=== PATIENT | male | born 1965 | race African-American/Black ===

== ENCOUNTER 2022-07-04 16:16 | Emergency (ER) | payer OTHER, SELFPAY ==
--- NOTE | ~2022-07-04 | XR_ITS ---
EXAMINATION: XR wrist RT min 3V DATE: 07/04/2022 17:49 INDICATION: Posterior right wrist pain. TECHNIQUE: 4 views of right wrist were obtained. COMPARISON: None. FINDINGS: Bone alignment is normal. No fracture. There is mild osteoarthritis of triscaphe joint and third metacarpophalangeal joint. IMPRESSION: 1. Mild polyarticular osteoarthritis. Reviewed, dictated and finalized at location A. [employer]ER
[2022-07-04 16:27] VITALS: BP 149/103; PULSE 97; RESP 18; TEMP 37.2; O2SAT 99
--- NOTE | 2022-07-04 17:32 | ED.UPPEXIN ---
HPI - Extremity Injury (Upper) General Chief Complaint: Extremity Injury, Upper Stated Complaint: gout Time Seen by Provider: 07/04/22 17:04 Source: patient Mode of arrival: ambulatory Limitations: no limitations History of Present Illness HPI narrative: This is a 56 year old male that presents to the ER for right wrist pain ongoing over the last 3 days. Reports associated swelling. He has not been taking anything for pain. Reports history of gout and that Indomethacin usually helps him. He is out of his prescription at the moment. Denies fever. Related Data Allergies Allergy/AdvReac Type Severity Reaction Status Date / Time No Known Allergies Allergy Verified 12/22/17 14:13 Review of Systems Review of Systems: CONSTITUTIONAL: Denies fever SKIN: Denies rash MUSCULOSKELETAL: Reports joint pain, and myalgia. NEUROLOGIC: Denies numbness All systems reviewed & are unremarkable except as noted in HPI and below PMFSH Past Medical History Medical History (Updated 07/04/22 @ 19:37 by Elke Melendez PA-C) History of diabetes mellitus History of gout History of hyperlipidemia History of hypertension Social History Social History (Updated 07/04/22 @ 17:35 by Elke Melendez PA-C) Smoking status: Never smoker Exam Narrative: GENERAL: Well-appearing, well-nourished, and in no acute distress. HEAD: Normocephalic, atraumatic. EYES: EOMI. CHEST: Clear to auscultation. No respiratory distress. No wheezes rales or rhonchi HEART: Regular rate and rhythm. No murmur heard. Normal peripheral pulses. EXTREMITIES: Decreased active ROM in the right wrist due to pain. Mild edema about the right wrist dorsal surface. No overlying erythema. Normal DP pulse. Normal sensation SKIN: Warm, dry, no rash. NEURO: No focal deficits. Alert and oriented x3. PSYCH: Normal mood and affect Course Vital Signs Vital signs: Vital Signs Temperature 99 F 07/04/22 16:27 Pulse Rate 97 07/04/22 16:27 Respiratory Rate 18 07/04/22 16:27 Blood Pressure 149/103 H 07/04/22 16:27 Pulse Oximetry 99 07/04/22 16:27 Oxygen Delivery Room Air 07/04/22 16:27 Temperature 99 F 07/04/22 16:27 Pulse Rate 97 07/04/22 16:27 Respiratory Rate 18 07/04/22 16:27 Blood Pressure 149/103 H 07/04/22 16:27 Pulse Oximetry 99 07/04/22 16:27 Oxygen Delivery Room Air 07/04/22 16:27 MDM - Extremity Injury (Upper) MDM Narrative Medical decision making narrative: Patient presents to the emergency department for right wrist pain ongoing over the last 2 days. Reports longstanding history of gout and that this feels like a typical flare for him. He is afebrile and nontoxic-appearing. No recent injuries. He is neurovascularly intact. There is no erythema of the wrist. There is mild swelling noted. CBC with mild leukocytosis to 10.2. ESR is normal and CRP is 1.2. Uric acid is also normal. Wrist x-ray shows mild polyarticular osteoarthritis. Patient and family updated on work-up. Patient reports he usually gets the most relief with indomethacin and a steroid taper. Will be continued on indomethacin and started on a prednisone taper. He was instructed to have close follow-up with his primary provider. He was given warnings to return to the ER Lab Data Attestation: I reviewed the patient's lab results. 07/04/22 17:49 07/04/22 17:49 Labs: Lab Results 07/04/22 07/04/22 Range/Units 17:49 17:49 WBC 10.2 H (4.5-10.0) K/mm3 RBC 5.86 (4.6-6.20) M/mm3 Hgb 16.5 (14.0-18.0) g/dL Hct 50.0 (42.0-52.0) % MCV 85.3 (80-100) fl MCH 28.2 (26-34) pg MCHC 33.0 (32-36) g/dl RDW 13.2 (11.5-14.5) % Plt Count 154 (150-375) k/mm3 MPV 12.0 H (7.4-10.4) fl Immature Gran % (Auto) 0.3 (0-0.5) % Neut % (Auto) 75.4 H (45.5-73.1) % Lymph % (Auto) 18.1 L (18.3-44.2) % [place] % (Auto) 5.8 (2.6-8.5) % Eos % (Auto) 0.2 (0-4.4) % Baso % (Auto) 0.2 (0.2-1.2) % Lym
[2022-07-04] MEDS: INDOMETHACIN 25 MG CAPSULE 50 MG PO (17:45)
[2022-07-04 17:57] LABS: Basophils Percent Auto 0.2 % (0.2-1.2); Eosinophils Percent Auto 0.2 % (0-4.4); Hemoglobin 16.5 g/dL (14.0-18.0); Immature Granulocyte Absolute 0.03 K/mm3 (0.00-0.031); Immature Granulocyte Percent A 0.3 % (0-0.5); Lymphocytes Absolute Auto 1.85 K/mm3 (0.9-3.2); Lymphocytes Percent Auto 18.1 % (18.3-44.2); Mean Corpuscular Hemoglobin 28.2 pg (26-34); Mean Corpuscular Volume 85.3 fl (80-100); Monocytes Absolute Auto 0.6 K/mm3 (0.1-0.6); Monocytes Percent Auto 5.8 % (2.6-8.5); Neutrophils Absolute Auto 7.7 K/mm3 (1.3-6.7); Neutrophils Percent Auto 75.4 % (45.5-73.1); Platelet Count Result 154 k/mm3 (150-375); Red Blood Count 5.86 M/mm3 (4.6-6.20); Red Cell Distribution Width 13.2 % (11.5-14.5); White Blood Count 10.2 K/mm3 (4.5-10.0)
[2022-07-04 18:09] LABS: Anion Gap 12 mmol/L (8-16); Blood Urea Nitrogen 7 mg/dL (9-20); CRP 1.2 mg/dL (<1.0); Calcium 9.6 mg/dL (8.4-10.2); Carbon Dioxide 26 mmol/L (22-30); Chloride 100 mmol/L (98-107); Estimated CRCL calculation 117 ml/min; Estimated Glomerular Filt Rate > 60; Glucose 115 mg/dL (65-110); Potassium 3.7 mmol/L (3.4-5.0); Sodium 138 mmol/L (137-145); Uric Acid 5.6 mg/dL (3.5-8.5)
[2022-07-04 19:21] LABS: Erythrocyte Sedimentation Rate 10 mm/hr (0-20)
[2022-07-04 19:53] VITALS: BP 160/108; PULSE 84; RESP 16; O2SAT 99
== END 2022-07-04 19:53 | disposition home or self-care (01) ==
PROVIDERS: Emergency Provider Physician Assistant
DX: M10.9 Gout, unspecified (principal); E11.9 Type 2 diabetes mellitus without complications; E78.5 Hyperlipidemia, unspecified; I10 Essential (primary) hypertension; M19.031 Primary osteoarthritis, right wrist
CPT/HCPCS: 36415; 73110; 80048; 84550; 85025; 85652; 86140; 99283; A9270

== ENCOUNTER 2022-12-20 09:45 | Emergency (ER) | payer OTHER, SELFPAY ==
[2022-12-20 09:51] VITALS: BP 185/122; PULSE 94; RESP 16; TEMP 36.7; O2SAT 100
--- NOTE | 2022-12-20 10:23 | ED.GENADULT ---
HPI - General Adult General Chief complaint: Unspecified Stated complaint: R. hand swelling Time Seen by Provider: 12/20/22 09:57 History of Present Illness HPI narrative: Patient is a 57-year-old male with a history of gout here for evaluation of right hand and wrist pain and swelling. Patient states that he has been experiencing a gout flare for the past week. States that it started in his right foot and he has been using crutches. The right foot has improved but since using the crutches he has had right wrist pain. States pain is identical to previous gout flares. He has not attempted any medicine for his symptoms yet. Reports good relief from prednisone and indomethacin in the past. Related Data Allergies Allergy/AdvReac Type Severity Reaction Status Date / Time No Known Allergies Allergy Verified 12/22/17 14:13 Review of Systems Review of Systems: Gen.: Denies fevers or chills Eyes: Denies eye pain or visual change ENT: Denies congestion Respiratory: Denies shortness of breath or cough CV: Denies chest pain or palpitations GI: Denies abdominal pain nausea, emesis or diarrhea denies burning, urgency, frequency or hematuria Musculoskeletal: Reports joint pain Neuro: Denies numbness, tingling, weakness or focal weakness Skin: Denies rash Except as documented, all other systems reviewed and negative [facility] Past Medical History Medical History History of diabetes mellitus History of gout History of hyperlipidemia History of hypertension Social History Social History (Updated 07/04/22 @ 17:35 by Elke Melendez PA-C) Smoking status: Never smoker Exam Narrative: APPEARANCE: Uncomfortable appearing Head: Normocephalic and atraumatic. EYES: PERRLA/EOMI, conjunctivae clear NOSE: No nasal drainage EARS: External ear normal in appearance THROAT: Oropharynx is clear. Mucous membranes are moist. NECK: Supple. No adenopathy, no masses. RESPIRATORY: Airway patent, respirations nonlabored. Clear to auscultation bilaterally, no rales, rhonchi, wheezing. CARDIOVASCULAR: 2+ radial pulses bilaterally. Regular rate and rhythm without murmurs, rubs, or gallops. ABDOMINAL: Normoactive bowel sounds. Soft, nontender, nondistended. No rebound tenderness or guarding. MUSCULOSKELETAL: There is warmth and tenderness to palpation along the right distal ulna, nonpitting edema overlying the tenderness NEURO: Normal speech. No focal neurologic deficits. SKIN: Skin is warm and dry. No rashes. PSYCHIATRIC: Normal affect/mood.. Course Vital Signs Vital signs: Vital Signs Temperature 98.1 F 12/20/22 09:51 Pulse Rate 94 12/20/22 09:51 Respiratory Rate 16 12/20/22 09:51 Blood Pressure 185/122 H 12/20/22 09:51 Pulse Oximetry 100 12/20/22 09:51 Oxygen Delivery Room Air 12/20/22 09:51 Temperature 98.1 F 12/20/22 09:51 Pulse Rate 68 12/20/22 11:34 Respiratory Rate 16 12/20/22 09:51 Blood Pressure 164/110 H 12/20/22 11:34 Pulse Oximetry 97 12/20/22 11:34 Oxygen Delivery Room Air 12/20/22 09:51 Medical Decision Making MDM Narrative Medical decision making narrative: 57 year old male with a history of gout here for evaluation of right wrist pain for the past several days that he likens to a gout flare, appears to be consistent with such given history and physical exam. Feeling improved after toradol. He has no contraindications to steroids so will send home with predniosne and PMD f/u. Vital Signs Vital Signs: Vital Signs Temperature 98.1 F 12/20/22 09:51 Pulse Rate 94 12/20/22 09:51 Respiratory Rate 16 12/20/22 09:51 Blood Pressure 185/122 H 12/20/22 09:51 Pulse Oximetry 100 12/20/22 09:51 Oxygen Delivery Room Air 12/20/22 09:51 Temperature 98.1 F 12/20/22 09:51 Pulse Rate 68 12/20/22 11:34 Respiratory Rate 16 12/20/22 09:51 Blood Pressure 164/110 H 12/20/22 11:34 Pulse
[2022-12-20] MEDS: KETOROLAC 30 MG/ML VIAL (*BKC) IM (10:58)
[2022-12-20] MEDS: predniSONE 20 MG TABLET 40 MG PO (10:58)
[2022-12-20 11:34] VITALS: BP 164/110; PULSE 68; O2SAT 97
== END 2022-12-20 11:36 | disposition home or self-care (01) ==
PROVIDERS: Emergency Provider Physician Assistant
DX: M10.9 Gout, unspecified (principal); E11.9 Type 2 diabetes mellitus without complications; E78.5 Hyperlipidemia, unspecified; I10 Essential (primary) hypertension
CPT/HCPCS: 96372; 99283; J1885; J7512

== ENCOUNTER 2024-06-22 02:15 | Emergency (ER) | payer OTHER, SELFPAY ==
[2024-06-22] VITALS (16 sets, daily range): BP systolic 136–156; BP diastolic 93–110; PULSE 60–73; RESP 9–17; TEMP 36.6; O2SAT 95–99
--- NOTE | 2024-06-22 02:36 | ED_ITS ---
HPI - General Adult General Chief complaint: Allergic Reaction Stated complaint: lip swelling Time Seen by Provider: 06/22/24 02:18 History of Present Illness HPI narrative: Patient 58-year-old gentleman who presents emergency department with chief complaint of possible allergic reaction. The patient reports that started having swelling in his upper lip this evening. Patient is taking amlodipine/benazepril patient reports no specific inciting medication or food Related Data Allergies Allergy/AdvReac Type Severity Reaction Status Date / Time No Known Allergies Allergy Verified 09/17/23 15:04 Review of Systems Review of Systems: A 10 system review of systems was completed on the patient and is negative except for what is stated in the HPI. Nursing and ancillary documentation was reviewed. [facility] Past Medical History Medical History History of diabetes mellitus History of hyperlipidemia History of gout History of hypertension Family History Family History Mother Diabetes mellitus Father Acute myocardial infarction Social History Social History Smoking status: Never smoker Exam Narrative: GENERAL: Well-appearing, well-nourished, and in no acute distress. HEAD: Normocephalic, atraumatic. EYES: PERRLA and EOMI. ENT: Nares clear, no rhinorrhea or epistaxis. Mucous membranes moist. Angioedema of the upper lip no angioedema the tongue NECK: Supple. CHEST: Clear to auscultation. No respiratory distress. HEART: Regular rate and rhythm. No murmur heard. Normal peripheral pulses. ABDOMEN: Soft, nontender, nondistended, normal active bowel sounds. EXTREMITIES: Normal range of motion. No edema. SKIN: Warm, dry, no rash. NEURO: No focal deficits. Alert and oriented x3. PSYCH: Normal mood and affect. Course Vital Signs Vital signs: Vital Signs Pulse Rate 68 06/22/24 02:45 Respiratory Rate 9 L 06/22/24 02:45 Pulse Oximetry 99 06/22/24 02:45 Temperature 36.6 C 06/22/24 03:08 Pulse Rate 73 06/22/24 03:01 Respiratory Rate 16 06/22/24 03:01 Blood Pressure 147/95 H 06/22/24 03:01 Pulse Oximetry 97 06/22/24 03:01 Oxygen Delivery Room Air 06/22/24 03:08 Medical Decision Making [facility] Narrative Medical decision making narrative: Differential diagnosis includes allergic reaction, patient bring angioedema. The patient was given steroids Benadryl and Pepcid patient will be observed in the emergency department for 2-3 hours the patient will be discharged home on just amlodipine as this may be related to EDWARD inhibitor angioedema. Patient will also be started on a prednisone pulse. Vital Signs Vital Signs: Vital Signs Pulse Rate 68 06/22/24 02:45 Respiratory Rate 9 L 06/22/24 02:45 Pulse Oximetry 99 06/22/24 02:45 Temperature 36.6 C 06/22/24 03:08 Pulse Rate 73 06/22/24 03:01 Respiratory Rate 16 06/22/24 03:01 Blood Pressure 147/95 H 06/22/24 03:01 Pulse Oximetry 97 06/22/24 03:01 Oxygen Delivery Room Air 06/22/24 03:08 Discharge Plan Discharge Clinical Impression: Angioedema Patient Disposition: Home, Self-Care Condition: Stable Instructions: Antibiotic Form, Angioedema (ED) Additional Instructions: Please discontinue taking the amlodipine/benazepril. Your given a prescription for amlodipine without the been several please follow- up with your primary care provider as she may need further adjustment of your blood pressure medicines. The angioedema could be caused by the benazepril component of your blood pressure medicine or this could be a reaction to either a food or environmental allergen Patient Language: Stateless Prescriptions: New amlodipine 10 mg tablet 10 mg PO DAILY Qty: 30 0RF prednisone 20 mg tablet 40 mg PO DAILY 5 Days Qty: 10 0RF No Action indomethacin 50 mg capsule 50 mg PO TID 7 Days Qty: 21 0RF Rx Instructions: administer with food or milk prednisone 10 mg tablet 10 mg PO DAILY Qty: 45 0RF Rx Instructions: 5 tabs daily for 3 days, 4 tabs daily for 3 days, 3 tabs daily for 3 days, 2 tabs daily for 3 days, 1 tab daily for 3 days prednisone 10 mg tablet 10 mg PO DIRECTED Qty: 45 0RF Rx Instructions: 5 tabs daily for 3 days, 4 tabs daily for 3 days, 3 tabs daily for 3 days, 2 tabs daily for 3 days, 1 tab daily for 3 days Follow-up/Referrals: [place], [Primary Care Provider] -
[2024-06-22] MEDS: methylPREDNISolone SOD SUCC 125 MG VIAL IV PUSH (02:45)
[2024-06-22] MEDS: diphenhydrAMINE HCl INJ 50 MG/ML VIAL IV PUSH (02:45)
[2024-06-22] MEDS: FAMOTIDINE 20 MG/2 ML VIAL IV PUSH (02:45)
== END 2024-06-22 04:48 | disposition home or self-care (01) ==
PROVIDERS: Emergency Provider Emergency Medicine
DX: T78.3XXA Angioneurotic edema, initial encounter (principal); E78.5 Hyperlipidemia, unspecified; I10 Essential (primary) hypertension; M10.9 Gout, unspecified; E11.9 Type 2 diabetes mellitus without complications
CPT/HCPCS: 96374; 96375; 99284; J1200; J2919

== ENCOUNTER 2024-12-13 15:05 | Emergency (ER) | payer OTHER, SELFPAY ==
[2024-12-13] VITALS (9 sets, daily range): BP systolic 114–144; BP diastolic 78–93; PULSE 66–76; RESP 12–20; TEMP 36.4–36.6; O2SAT 96–99
--- NOTE | ~2024-12-13 | XR_ITS ---
EXAMINATION: XR chest 2V 12/13/2024 15:39 INDICATION: Trauma PROCEDURE: 2 view chest COMPARISON: 06/20/2011 FINDINGS: The lungs are clear. The cardiomediastinal silhouette is within normal limits. There are no pleural effusions. There is no pneumothorax suspected. IMPRESSION: 1: NO ACUTE CARDIOPULMONARY DISEASE. Reviewed, dictated and finalized at location B.
--- NOTE | 2024-12-13 15:09 | ECG_ITS ---
Test Date: 2024-12-13 15:10:53 Measurements Intervals [place] Rate: 76 P: 61 TN: 169 QRS: -12 QRSD: 99 T: 3 QT: 393 QTc: 443 Interpretive Statements SINUS RHYTHM POSSIBLE LEFT ATRIAL ENLARGEMENT VOLTAGE CRITERIA FOR LVH CONSIDER INFERIOR INFARCT, AGE INDETERMINATE ABNORMAL ECG No previous ECG available for comparison Electronically Signed On 12-13-2024 16:12:52 CDT by Gerald Pope D.O.
--- NOTE | 2024-12-13 15:19 | ED.CHESTPAIN ---
HPI - Chest Pain General Chief Complaint: Chest Pain Stated Complaint: chest pain from trauma Time Seen by Provider: 12/13/24 15:11 History of Present Illness HPI narrative: Pt was cutting peice of plywood with table saw and it bound up a flew up and hit him in the right chest. Pt complains of right sided CP at site of injury. Pt says it hurts in that spot when he takes a deep breath. Related Data Allergies Allergy/AdvReac Type Severity Reaction Status Date / Time No Known Allergies Allergy Verified 09/17/23 15:04 Review of Systems Review of Systems: All systems reviewed & are unremarkable except as noted in HPI and below PMFSH Past Medical History Medical History History of diabetes mellitus History of hyperlipidemia History of gout History of hypertension Family History Family History Mother Diabetes mellitus Father Acute myocardial infarction Social History Social History Smoking status: Never smoker Exam Const: General: healthy appearing and no acute distress Nutritional Appearance: well nourished Orientation/consciousness: patient oriented x3 Limitations: no limitations Chest: Other: abrasion right anterio rlower chest with tenderness to palpation but no crepitance noted Resp: Effort & Inspection: normal respiratory effort Auscultation: clear to auscultation bilaterally Cardio: Rate: regular rate Rhythm: regular rhythm GI: GI Palp: Yes Soft to palpation Auscultation: normal bowel sounds Skin: General skin exam: normal color Wounds: wounds noted (abrasion to right forearm) Neuro: General: patient oriented x3, moves all extremities, no focal motor deficits and CN's II-XI intact bilaterally Speech: normal speech Extrem: General: normal to inspection and no clubbing, cyanosis or edema Psych: Mental Status: mental status grossly normal Affect: normal affect Attitude: cooperative Course Vital Signs Vital signs: Vital Signs Temperature 97.8 F 12/13/24 15:09 Pulse Rate 76 12/13/24 15:09 Respiratory Rate 16 12/13/24 15:09 Blood Pressure 144/93 H 12/13/24 15:09 Pulse Oximetry 99 12/13/24 15:09 Oxygen Delivery Room Air 12/13/24 15:09 Temperature 97.6 F 12/13/24 16:16 Pulse Rate 69 12/13/24 16:31 Respiratory Rate 17 12/13/24 16:31 Blood Pressure 115/80 12/13/24 16:31 Pulse Oximetry 97 12/13/24 16:31 Oxygen Delivery Room Air 12/13/24 15:09 MDM - Chest Pain MDM Narrative Medical decision making narrative: pt struck in chest by piece of plywood flying of table saw. will get cxr to rule out fx or pnuemothorax. ekg normal and not likely cardiac. will give morphine for pain. labs and cxr unremarkable. Pt feels better. home on [employer] Lab Data 12/13/24 15:19 12/13/24 15:43 Labs: Lab Results 12/13/24 12/13/24 Range/Units 15:19 15:43 WBC 5.4 (4.5-10.0) K/mm3 RBC 5.33 (4.6-6.20) M/mm3 Hgb 15.5 (14.0-18.0) g/dL Hct 47.5 (42.0-52.0) % MCV 89.1 (80-100) fl MCH 29.1 (26-34) pg MCHC 32.6 (32-36) g/dl RDW 13.0 (11.5-14.5) % Plt Count 140 L (150-375) k/mm3 MPV 11.9 H (7.4-10.4) fl Immature Gran % (Auto) 0.4 (0-0.5) % Neut % (Auto) 64.2 (45.5-73.1) % Lymph % (Auto) 28.7 (18.3-44.2) % [place] % (Auto) 5.2 (2.6-8.5) % Eos % (Auto) 1.1 (0-4.4) % Baso % (Auto) 0.4 (0.2-1.2) % Lymph # (Auto) 1.54 (0.9-3.2) K/mm3 [place] # (Auto) 0.3 (0.1-0.6) K/mm3 Eos # (Auto) 0.1 (0-0.3) K/mm3 Baso # (Auto) 0.0 (0.0-0.1) K/mm3 Abs Immat Gran (auto) 0.02 (0.00-0.031) K/mm3 Absolute Neuts (auto) 3.5 (1.3-6.7) K/mm3 Absolute Nucleated RBC 0.000 (0.0-0.012) K/mm3 Nucleated RBC % 0.0 (0.0-0.2) % Sodium 139 (137-145) mmol/L Potassium 3.5 (3.4-5.0) mmol/L Chloride 108 H (98-107) mmol/L Carbon Dioxide 21 L (22-30) mmol/L Anion Gap 10 (4-12) mmol/L BUN 16 (9-20) mg/dL Creatinine 0.91 (0.7-1.3) mg/dL Estim Creat Clear Calc 95 ml/min Estimated GFR > 60 (59 - ) Glucose 99 (65-110) mg/dL Calcium 9.8 (8.4-10.2) mg/dL Total Bilirubin 0.4 (0.2-1.3) mg/dL AST 52 (17-59) U/L ALT 57 H (6-50) U/L Alkaline Phosphatase 35 L (38-126) U/L Total Protein 7.9 (6.3-8.2) g/dL Albumin 4.6 (3.5-5.1) g/dL Discharge Plan Discharge Clinical Impression: Chest wall contusion Patient Disposition: Home Condition: Improved Instructions: Antibiotic Form, Chest Wall Pain (ED) Patient Language: Palauan Prescriptions: New hydrocodone-acetaminophen 5-325 mg tablet 1 tablet PO Q6H PRN (Reason: pain) Qty: 14 0RF No Action amlodipine 10 mg tablet 10 mg PO DAILY Qty: 30 0RF prednisone 20 mg tablet 40 mg PO DAILY 5 Days Qty: 10 0RF indomethacin 50 mg capsule 50 mg PO TID 7 Days Qty: 21 0RF Rx Instructions: administer with food or milk prednisone 10 mg tablet 10 mg PO DAILY Qty: 45 0RF Rx Instructions: 5 tabs daily for 3 days, 4 tabs daily for 3 days, 3 tabs daily for 3 days, 2 tabs daily for 3 days, 1 tab daily for 3 days prednisone 10 mg tablet 10 mg PO DIRECTED Qty: 45 0RF Rx Instructions: 5 tabs daily for 3 days, 4 tabs daily for 3 days, 3 tabs daily for 3 days, 2 tabs daily for 3 days, 1 tab daily for 3 days Follow-up/Referrals: [place], [Primary Care Provider] - Quality HEART score for chest pain patients History: slightly suspicious ECG: normal Age: > 45 and < 65 years Risk factors: no risk factors known Troponin: < or = to 1x normal limit Heart score: 1
[2024-12-13 15:27] LABS: Basophils Percent Auto 0.4 % (0.2-1.2); Eosinophils Absolute Auto 0.1 K/mm3 (0-0.3); Eosinophils Percent Auto 1.1 % (0-4.4); Hematocrit 47.5 % (42.0-52.0); Hemoglobin 15.5 g/dL (14.0-18.0); Immature Granulocyte Absolute 0.02 K/mm3 (0.00-0.031); Immature Granulocyte Percent A 0.4 % (0-0.5); Lymphocytes Absolute Auto 1.54 K/mm3 (0.9-3.2); Lymphocytes Percent Auto 28.7 % (18.3-44.2); Mean Corpuscular HGB Conc 32.6 g/dl (32-36); Mean Corpuscular Hemoglobin 29.1 pg (26-34); Mean Corpuscular Volume 89.1 fl (80-100); Mean Platelet Volume 11.9 fl (7.4-10.4); Monocytes Absolute Auto 0.3 K/mm3 (0.1-0.6); Monocytes Percent Auto 5.2 % (2.6-8.5); Neutrophils Absolute Auto 3.5 K/mm3 (1.3-6.7); Neutrophils Percent Auto 64.2 % (45.5-73.1); Platelet Count Result 140 k/mm3 (150-375); Red Blood Count 5.33 M/mm3 (4.6-6.20); White Blood Count 5.4 K/mm3 (4.5-10.0)
[2024-12-13] MEDS: ONDANSETRON INJ 4 MG/2 ML VIAL IV PUSH (15:29)
[2024-12-13] MEDS: MORPHINE SULFATE (*CRX) 4 MG/ML INJ IV PUSH (15:29)
[2024-12-13 16:03] LABS: Alanine Aminotransferase 57 U/L (6-50); Albumin Level 4.6 g/dL (3.5-5.1); Alkaline Phosphatase 35 U/L (38-126); Anion Gap 10 mmol/L (4-12); Aspartate Amino Transferase 52 U/L (17-59); Bilirubin,Total 0.4 mg/dL (0.2-1.3); Blood Urea Nitrogen 16 mg/dL (9-20); Calcium 9.8 mg/dL (8.4-10.2); Carbon Dioxide 21 mmol/L (22-30); Chloride 108 mmol/L (98-107); Estimated CRCL calculation 95 ml/min; Estimated Glomerular Filt Rate > 60; Glucose 99 mg/dL (65-110); Potassium 3.5 mmol/L (3.4-5.0); Sodium 139 mmol/L (137-145); Total Protein 7.9 g/dL (6.3-8.2)
--- OUTSIDE RECORDS SUMMARY | 2024-12-13 16:30 | XMS_ITS | Encounter Summary ---
Author Name [facility] [place] Organization [facility] [place] Address [address] [place] [address] Care Team Providers Care Rehab Consultant Name Role Phone MIRANDA GONZALES Primary Care Provider Nancy hurtado Selected Encounter This section includes the information on record at [place] for the Encounter. Date/Time Encounter Type Encounter Description Reason Provider Source November 07, 2024 09:00 AM OFFICE O/P EST MOD 30 MIN RHEUMATOLOGY/ARTHR ITIS ICD-10-CM [id number] Chronic gout, unspecified, without tophus (tophi) JOANNA SANTIAGO Encounter Template Text not used by [place] Assessments - Encounter Diagnoses This section includes the primary and secondary diagnoses documented for the Encounter. Date/Time Primary/Secondary Diagnosis Diagnosis Name Provider Source November 07, 2024 09:54 AM PRIMARY Chronic gout, unspecified, without tophus (tophi) [facility] November 07, 2024 09:54 AM SECONDARY Chronic pain syndrome [facility] November 07, 2024 09:54 AM SECONDARY Vertebrogenic low back pain [facility] Plan of Treatment: Future Appointments (+ 6 months) and Future Tests (+/- 45 days) The Plan of Treatment section includes future care activities for the patient from all [place] [facility]. This section includes future appointments and future orders which are active, pending or scheduled. Future Appointments This section includes appointments that were scheduled to occur 6 months from the date of the Encounter, up to a maximum of 20 appointments. The data comes from all [place] treatment facilities. Appointment Date/Time Appointment Type Appointme nt Facility Name Jan 26, 2025 02:00 PM AMBULATORY - MEDICINE [facility] Feb 27, 2025 09:30 AM AMBULATORY - MEDICINE [facility] Vital Signs: All taken on the encounter date This section contains inpatient and outpatient Vital Signs collected on the date of the Encounter. Date/Time Temperature Pulse Blood Pressure Respiratory Rate SP02 Pain Height Weight Body Mass Index Source November 07, 2024 09:16 AM 160/89 [facility] November 07, 2024 09:16 AM 98 158/91 86 96 7 244.3 32 [facility] Social History: Smoking Status (Most current) and Tobacco Use (All prior to encounter date) This section includes the most current, and the historical, smoking and tobacco- related health factors from the [place] facility where the Encounter took place. Current Smoking Status This section includes the most current smoking, or tobacco-related health factor, from the [place] facility where the Encounter took place. Date/Time Current Smoking Status Comment Kendall loredo Oct 01, 2022 02:00 PM LIFETIME NON-SMOKER [facility] Encounter Notes: All associated encounter notes This section contains the clinical notes associated to the Encounter. Date/Time Encounter Note(s) Provider Source November 07, 2024 09:44 AM RHEUMATOLOGY OUTPA TIENT NOTE: LOCAL TITLE: RHEUMATOLOGY OUTPATIENT FOLLOW UP STL STANDARD TITLE: RHEUMATOLOGY OUTPATIENT NOTE DATE OF NOTE: NOVEMBER 07, 2024@09:44 ENTRY DATE: NOVEMBER 07, 2024@09:45:05 AUTHOR: JS DIAS EXP COSIGNER: JOANNA SANTIAGO URGENCY: STATUS: COMPLETED RHEUMATOLOGY OUTPATIENT FOLLOW UP STL Has ADDENDA Rheumatology Established HPI:Rafi Mane is a 59 years old M with a h/o HTN,HLD,DM,CHRISTA on CPAP,gout, who is here for a f/u. Interval history: Today, he tells me that his health is doing much better but his bl sciatica symptoms are getting somewhat worse. His gout is better controlled but mentions he had two flares in the last 5 months. This was controlled with few days of Colchicine. He wants to take better control of his life and pain and wishes his back was better. ROS: No fever, chills. No shortness of breath or cough. No abdominal pain. No new rash. Disease history: 1988: ?Gout diagnosis, pain in the right first toe with a elevated uric acid, they aspirated and he was told that he has gout??. He has tried indomethacin and colchicine in the past. He did try allopurinol in the past but had a flare up on it and didn't take anything like Colchicine for a few months along with it. 01/25: First visit with us in the clinic. reported flares 3-4 times per month: ankles: b/l, sometimes toes, wrist, hands, fingers, elbows, shoulders, lower back, and the neck. Uric acid 08/28: 6.7. 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 Medication history: Allopurinol resumed on 08/2023 along with colchicine daily MEDICATIONS: AMLODIPINE 5/BENAZEPRIL 20MG CAP TAKE 2 CAPSULES BY MOUTH ACTIVE ONCE A DAY CAMPHOR 0.5/MENTHOL 0.5% LOTION APPLY LIBERALLY TO ACTIVE AFFECTED AREA(S) THREE TIMES A DAY NEEDED FOR ITCHING - (EXTERNAL USE ONLY) CAN KEEP IN FRIDGE FOR ADDITIONAL BENEFIT CETIRIZINE HCL 10MG TAB TAKE ONE TABLET BY MOUTH TWICE A ACTIVE DAY FOR ALLERGY SYMPTOMS COLCHICINE 0.6MG TAB TAKE ONE TABLET BY MOUTH ONCE A DAY ACTIVE STOP MED AND CONTACT PROVIDER AT FIRST SIGN OF NAUSEA, VOMITING, OR DIARRHEA DICLOFENAC NA 1% TOP GEL APPLY 4 GM TO AFFECTED AREA(S) ACTIVE FOUR TIMES A DAY NEEDED DO NOT EXCEED MORE THAN 16 GRAMS DAILY TO ANY LOWER EXTREMITY JOINT. NOT MORE THAN 8 GRAMS DAILY TO ANY UPPER EXTREMITY JOINT. MAX 32GM/DAY OVER ALL JOINTS. (MEASURE DOSE WITH RULER ATTACHED INSIDE BOX) HYDROXYZINE HCL 25MG TAB TAKE ONE TABLET BY MOUTH AT ACTIVE BEDTIME NEEDED FOR PRURITIS *MAY CAUSE DROWSINESS* OLOPATADINE HCL 0.7% OPH SOLN INSTILL 1 DROP IN BOTH EYES ACTIVE ONCE A DAY FOR ALLERGIES PETROLATUM (WHITE) OINT APPLY LIBERALLY TO AFFECTED ACTIVE AREA(S) THREE TIMES A DAY TRIAMCINOLONE ACETONIDE 0.1% OINT APPLY LIGHTLY TO ACTIVE AFFECTED AREA(S) TWICE DAILY NEEDED (EXTERNAL USE ONLY) MUCH NEEDED FOR SEVERE ITCHING/RASH Non-VA ATORVASTATIN CALCIUM 80MG TAB 40MG BY MOUTH EVERY ACTIVE EVENING Non-VA METFORMIN HCL 500MG 24HR SA TAB 500MG BY MOUTH ONCE ACTIVE A DAY Non-VA METOPROLOL SUCCINATE 50MG SA TAB 25MG BY MOUTH ONCE ACTIVE A DAY Labs: 04/2024: Stable, ALT 51, Uric acid 8.5 PHYSICAL EXAM: VITALS: Stable Gen: Alert, oriented, in no acute distress No pallor, icterus No facial rash Chest: Clear to auscultation Abdomen: obese, soft, nontender Extremities: no edema MSK: No joint synovitis noted in b/l hands, Decreased ROM in b/l shoulder, no tenderness to palpation Bunion+ b/l 1st toe Decreased mobility of lumbar spine, kyphosis+, muscle spasm bl lumbar area No spine TTP SLRT + bl, Left>right No elevated temperature or tenderness on joint palpation No muscle tenderness appreciated Power 5/5 both upper and lower extremity ASSESSEMENT AND PLAN: Mr. Mane is a 59 year old gentleman with a h/o gout, DM, HTN, HLD, CHRISTA, here for fu of multiple issues. #Chronic pain syndrome #Lumbar spondylosis: Lumbago with b/l sciatica #Post-traumatic osteoarthritis ----- -Will send muscle relaxant Cyclobenzaprine 5mg for 7 days and lidocaine patch PRN (on for 12 hours and off for 12 hours). -Will consult PT for lower back. Trial for atleast 3months. If not improving can consider pain management evaluation for epidural steroid injection and/or MRI. #Gout: nontophaceous Patient gives history of involvement of right ankle, right first toe, and right wrist? atleast more than 3 times a year.It lasts for about a week and self resolves. This has never been crystal proven. I started allopurinol with daily colchicine for 3 months on 08/2023. We discussed the importance of allopurinol for maintenance and colchicine for as needed prevention. -He is on a steady dose since 04/2024, will increase to 200mg daily. He is not taking daily Colchicine and only uses it PRN. This is fine but I advised daily use for 3 months to prevent mobilization flare. -Labs at next visit in 3 months including uric acid. FOLLOW-UP: 3 months, earlier as needed. Case discussed with Dr. Santiago. /francine/ JS DIAS MD RHEUMATOLOGY FELLOW Signed: 11/07/2024 09:54 /francine/ Joanna Santiago MD PhD Staff Physician, Rheumatology Cosigned: 11/07/2024 10:19 11/07/2024 ADDENDUM STATUS: COMPLETED Case discussed with the fellow, chart reviewed including labs and radiological findings. I discussed the case and reviewed the note created by the fellow, and agree in general with the data, synthesis, and plan as outlined in the fellow's note. /francine/ Joanna Santiago MD PhD Staff Physician, Rheumatology Signed: 11/07/2024 10:[address] [facility]
--- OUTSIDE RECORDS SUMMARY | 2024-12-13 16:31 | XMS_ITS | Encounter Summary ---
Author Name [facility] [place] [place] Organization [facility] [place] Address [address] [place] [address] Care Team Providers Care Insulation Worker Furnace Installer Name Role Phone MIRANDA GONZALES Primary Care Provider Nancy hurtado Selected Encounter This section includes the information on record at [place] for the Encounter. Date/Time Encounter Type Encounter Description Reason Provider Source Feb 08, 2024 03:00 PM OFFICE O/P EST LOW 20 MIN OPTOMETRY ICD-10-CM G43.B0 Ophthalmoplegic migraine, not intractable CHIVETTA,LAQUITA RODRIGUEZ IHHarriet Encounter Template Text not used by [place] Assessments - Encounter Diagnoses This section includes the primary and secondary diagnoses documented for the Encounter. Date/Time Primary/Secondary Diagnosis Diagnosis Name Provider Source Feb 09, 2024 08:33 AM PRIMARY Ophthalmoplegic migraine, not intractable CHIVETTA,LAQUITA RODRIGUEZ [facility] Feb 09, 2024 08:33 AM SECONDARY Dry eye syndrome of bilateral lacrimal glands LAQUITA AKINS [facility] Feb 09, 2024 08:33 AM SECONDARY Glare sensitivity LAQUITA AKINS [facility] Feb 09, 2024 08:33 AM SECONDARY Open angle with borderline findings, low risk, bilateral REBECCAVELAQUITA CRUZ [facility] Plan of Treatment: Future Appointments (+ 6 months) and Future Tests (+/- 45 days) The Plan of Treatment section includes future care activities for the patient [facility] [place] [facility] This section includes future appointments and future orders which are active, pending or scheduled. Future Appointments This section includes appointments that were scheduled to occur 6 months from the date of the Encounter, up to a maximum of 20 appointments. The data comes from all [facility]. Appointment Date/Time Appointment Type Appointme nt Facility Name Mar 03, 2024 04:00 PM AMBULATORY - PSYCHIATRY [facility] Mar 17, 2024 04:00 PM AMBULATORY - PSYCHIATRY [facility] Apr 11, 2024 09:30 AM AMBULATORY - MEDICINE [facility] Aug 01, 2024 02:00 PM AMBULATORY - MEDICINE [facility] Aug 08, 2024 11:00 AM AMBULATORY - PSYCHIATRY [facility] Aug 08, 2024 03:00 PM AMBULATORY - SURGERY [facility] Social History: Smoking Status (Most current) and Tobacco Use (All prior to encounter date) This section includes the most current, and the historical, smoking and tobacco- related health factors from the [place] facility where the Encounter took place. Current Smoking Status This section includes the most current smoking, or tobacco-related health factor, from the [place] facility where the Encounter took place. Date/Time Current Smoking Status Comment Kendall loredo Feb 01, 2024 03:00 PM [place]-TOBACCO NEVER USED [facility] Tobacco Use History This section includes a history of the smoking, or tobacco-related health factors, that were collected on or before the date of the Encounter. The data comes from the [place] facility where the Encounter took place. Date/Time Smoking Status/Tobacco Use Comment F acarcadio Jan 05, 2023 02:30 PM [place]-TOBACCO NEVER USED [facility] Encounter Notes: All associated encounter notes This section contains the clinical notes associated to the Encounter. Date/Time Encounter Note(s) Provider Source Feb 08, 2024 03:10 PM OPTOMETRY NOTE: LOCAL TITLE: OPTOMETRY NOTE STANDARD TITLE: OPTOMETRY NOTE DATE OF NOTE: FEB 08, 2024@15:10 ENTRY DATE: FEB 08, 2024@15:10:06 AUTHOR: LAQUITA AKINS EXP COSIGNER: URGENCY: STATUS: COMPLETED Last seen 08/17/23 - CEE 09/10/23 - LV 12/31/23 - VIST Reason for visit: f/u for migraines c aura CC: 1. Pt reports symptoms have improved likes the new glasses, though feels vision functional even without them likes sha tinted glasses when getting mirgraine trigger likes improved lighting/mag at home notes the migraines have decreased from qday to about 1x/week saw PCP but does not want meds/neuro referral at this time prior VF sc neurologic defects Ocular meds: refresh PRN Ocular ROS: 1. Suspected Ocular migraines vs Migraines c aura 2. Moderate Cupping OU 3. Hx of Central Serous Chorioretinopathy OD 4. Diabetes without retinopathy 5. LUIS ALBERTO OU 6. Cataracts OU 7. Refractive error/Presbyopia Family OcHX: (-) blindness (-) glaucoma (-) AMD (-) RD Cardiovascular ROS: no change from problem & medication lists CPRS Problem list, medications and allergies reviewed: CPRS Serology for Diabetes GLUCOSE 104 H mg/dL 04/21/2023 10:32 HGA1C 7.1 H % 08/08/2022 12:36 Cardiovascular BP: 138/78 (02/01/2024 15:24) Pulse: 72 (02/01/2024 15:09) Neuro: Orientation: Normal Psych: Mood/Affect: Normal Depression/suicide ideation: NO VISUAL ACUITY Without correction Distance Visual Acuity OD 20/20 OS 20/20-2 Pupils PERRL OU (-)APD Confrontation: FTFC OU Extra-Ocular Muscles Full OU (-)pain (-)diplopia CT sc dist: ortho Externals/adnexa: Unremarkable OU Refraction: 08/17/23 OD plano-[id number] 20/25+2 OS plano-[id number] 20/25+2 Add: + 2.00 DVO - transitions NVO SLIT LAMP EXAMINATION Lids/Lashes/Lacrimal No blepharitis, 1+ MGD OU Conjunctiva/Sclera White/quiet OU Cornea Clear OU Ant Chamber Deep and quiet OU Iris Normal, (-)NVI OU Lens tr-1 NS cataract OU Intraocular Pressures (Goldmann) 1 gtt fluress Date OD OS Time 08/17/23 21 20 1103 *blepharospasm 02/08/24 18 19 1514 RETINAL EVALUATION unDilated retinal exam Optic Nerve OD: 0.60 CDR Flat, pink, distinct (-)NVD OS: 0.65 CDR Flat, pink, distinct (-)NVD (+) large ONH size OU Vessels: 2/3 OU Macula: OD: Flat, intact (-)CSME, few drusen OS: Flat, intact (-)CSME, tr drusen Last DFE 08/2023 Assessment/Plan 02/09/24 1. Ocular migraines vs Migraines c aura - migraine with aura on prior DOD records - pt reports symptoms have decreased in frequency - occurs about once a week (vs qday prior) - HVF poor reliability OU but no neurological defect noted 09/2022 or 11/2022 - pt following with PCP for elevated BP, DM - Per chart review, no current treatment for migraines and pt reports did not bring up to PCP at [facility] 02/01/24 because he does not want to take more medications - Discussed possiblity of MRI brain imaging given pts symptoms, pt wishes to wait at this time (does not want to 'use up resources other may need'). Given no prior neurologic defects on VF, acceptable at this time. - Pt reports sha tinted specs, devices for at home have helped symptoms through clinic. - RTC 6 mo for CEE or sooner if symptoms worsen in severity/frequency/duration 2. Moderate Cupping OU - IOP remains high normotensive OU - today sc tx - large ONH size OU - baseline OCT obtained (08/28) normal RNFL thickness OU, normal GCC OU - fundus photos obtained 09/2022 - F 2022: poor reliability c cloverleaf defect - does not c/w OCT - ed. pt on findings - treatment not indicated at this time - monitor with IOP/CDR yearly, ancillary testing c changes 3. Hx of Central Serous Chorioretinopathy OD - per chart review - likely cause of spot in vision from prior DOD notes - macula intact today OU, no PED - fundus photos obtained 09/2022 - ed. pt on findings - monitor 4. Diabetes without h/o retinopathy - Last HGA1C 7.1 H % 08/08/2022 12:36 - Last DFE 08/2023 - Pt ed on the importance of tight bg control - Recommend A1C <7% to reduce risk of ocular complications 5. LUIS ALBERTO OU - pt symptoms relieved c current treatment - Continue Refresh ATs BID/PRN OU - RTC if symptoms worsen or do not improve 6. Cataracts OU - not yet visually significant - Defer cataract extraction until signs/sx indicate 7. Refractive error/Presbyopia - improved BCVA with updated specs - continue NVO/DVO - monitor at f/u in 6mo Ed. pt on all findings RTC 6 mo for CEE /es/ LAQUITA AKINS, OD Staff Physician, Optometry Signed: 02/09/2024 08:34 LAQUITA AKINS [facility]
--- OUTSIDE RECORDS SUMMARY | 2024-12-13 16:31 | XMS_ITS | Encounter Summary ---
Author Name [facility] Organization [facility] Address [address] [place] [address] Care Team Providers Care Chuck Boner Name Role Phone MIRANDA GONZALES Primary Care Provider Nancy hurtado Selected Encounter This section includes the information on record at ID for the Encounter. Date/Time Encounter Type Encounter Description Reason Provider Source Aug 01, 2024 02:00 PM OFFICE O/P EST MOD 30 MIN PRIMARY CARE/MEDICINE ICD-10-CM G89.4 Chronic pain syndrome YOUSUF GONZALES Harriet Encounter Template Text not used by ID Assessments - Encounter Diagnoses This section includes the primary and secondary diagnoses documented for the Encounter. Date/Time Primary/Secondary Diagnosis Diagnosis Name Provider Source Aug 01, 2024 02:40 PM PRIMARY Chronic pain syndrome YOUSUF GONZALES [facility] Aug 01, 2024 02:40 PM SECONDARY Essential (primary) hypertension YOUSUF GONZALES [facility] Aug 01, 2024 02:40 PM SECONDARY Gout, unspecified YOUSUF GONZALES [facility] Plan of Treatment: Future Appointments (+ 6 months) and Future Tests (+/- 45 days) The Plan of Treatment section includes future care activities for the patient from all ID treatmentfacilities. This section includes future appointments and future orders which are active, pending or scheduled. Future Appointments This section includes appointments that were scheduled to occur 6 months from the date of the Encounter, up to a maximum of 20 appointments. The data comes from all ID treatment facilities. Appointment Date/Time Appointment Type Appointme nt Facility Name Aug 08, 2024 11:00 AM AMBULATORY - PSYCHIATRY [facility] Aug 08, 2024 03:00 PM AMBULATORY - SURGERY [facility] Aug 31, 2024 02:15 PM AMBULATORY - MEDICINE [facility] November 07, 2024 09:00 AM AMBULATORY - MEDICINE [facility] Jan 26, 2025 02:00 PM AMBULATORY - MEDICINE [facility] Lab Results: +/- 30 days of the encounter This section includes the Chemistry and Hematology Lab Results on record with ID for the patient. Radiology Reports and Pathology Reports are provided separately, in subsequent sections. Lab Results This section contains the Chemistry/Hematology Results that were resulted 30 days before or 30 daysafter the date of the Encounter. Date/Time Source Result Type Result - Unit Interpretation Reference Range Specimen Type Comment Aug 01, 2024 02:[address] [facility] PROST. SPECIFIC AG.(PB-STL) SERUM Specimen Ty pe: SERUM Comment: The listed sex of this patient may not be a typical indication for this test. Therefore, reference ranges or interpretive criteria listed may not be valid. Clinical correlation suggested. Ordering Provider: SHANELL GONZALES Report Released Date/Time: Aug 01, 2024 02:34 PM Reporting Lab: [facility] [facility] [address] [id number] Performing Lab: [facility] [address] [id number] PROST. SPECIFIC AG.(PB-STL) 2.674 ng/mL 0.000-4.000 Vital Signs: All taken on the encounter date This section contains inpatient and outpatient Vital Signs collected on the date of the Encounter. Date/Time Temperature Pulse Blood Pressure Respiratory Rate SP02 Pain Height Weight Body Mass Index Source Aug 01, 2024 02:13 PM 148/80 [facility] Aug 01, 2024 02:10 PM 98.1 77 163/88 18 [address] [facility] Social History: Smoking Status (Most current) and Tobacco Use (All prior to encounter date) This section includes the most current, and the historical, smoking and tobacco- related health factors from the [facility] where the Encounter took place. Current Smoking Status This section includes the most current smoking, or tobacco-related health factor, from the ID facility where the Encounter took place. Date/Time Current Smoking Status Comment Kendall loredo Feb 01, 2024 03:00 PM VA-TOBACCO NEVER USED [facility] Tobacco Use History This section includes a history of the smoking, or tobacco-related health factors, that were collected on or before the date of the Encounter. The data comes from the ID facility where the Encounter took place. Date/Time Smoking Status/Tobacco Use Comment F mavis Jan 05, 2023 02:30 PM ID-TOBACCO NEVER USED [facility] Encounter Notes: All associated encounter notes This section contains the clinical notes associated to the Encounter. Date/Time Encounter Note(s) Provider Source Aug 02, 2024 08:38 AM PHYSICIAN LETTERS: LOCAL TITLE: TEST RESULT GENERAL LETTER STL STANDARD TITLE: PHYSICIAN LETTERS DATE OF NOTE: AUG 02, 2024@08:38 ENTRY DATE: AUG 02, 2024@08:38:36 AUTHOR: MIRANDA GONZALES COSIGNER: URGENCY: STATUS: COMPLETED [facility] [address] [place] [address] AUG 02, 20[address] [place] [address] [place] [id number] Dear Rafi Mane, I would like to update you on your recent test results. PSA - Prostate-specific antigen is a protein produced by cells of the prostate gland. The PSA test measures the level of PSA in the blood. PSA PROST. SPECIFIC AG.(PB-STL) 2.674 ng/mL 08/01/2024 14:47 These readings are within normal limits. FUTURE APPOINTMENTS: 08/08/2024 11:00 [facility] 08/08/2024 15:00 [facility] 4 08/31/2024 14:15 [facility] 10/24/2024 08:00 [facility] F4 Sincerely, MIRANDA GONZALES Staff Physician ROUTE,MIRANDA GRADY JR [facility] Aug 01, 2024 02:18 PM PRIMARY CARE NOTE: LOCAL TITLE: PRIMARY CARE PROVIDER ESTABLISHED VISIT ST STANDARD TITLE: PRIMARY CARE NOTE DATE OF NOTE: AUG 01, 2024@14:18 ENTRY DATE: AUG 01, 2024@14:18:20 AUTHOR: MIRANDA GONZALES EXP COSIGNER: URGENCY: STATUS: COMPLETED PRIMARY CARE PROVIDER ESTABLISHED VISIT ST Has ADDENDA Patient is 59 and BLACK OR Self Identified Gender - Man f/up visit, he is a 59 year old M with a h/o HTN,HLD,DM,CHRISTA on CPAP, gout history. He is doing much better, although set back after pipes burst in his hose... on the path now. using flonase with great results for his allergies. Sees a doctor as well for DM and htn. Following now with , happy with this as well. Holding the statin on recommendation of rheum. Muscle relaxer/diclofenec gel very helpful, renewed. Medication Review: The essential med list for review which includes the patient's active VA prescriptions and if applicable, remote VA prescriptions, non-VA prescriptions, and discontinued VA prescriptions within the last 90 days and known allergies including local and remote allergies have been reviewed. Allergies:Patient has answered NKA Active and Recently Outpatient Medications (excluding Supplies): Active Outpatient Medications Status === 1) ALLOPURINOL 100MG TAB TAKE ONE TABLET BY MOUTH ONCE A DAY ACTIVE TAKE WITH PLENTY OF WATER. Indication: GOUT 2) AMLODIPINE 5/BENAZEPRIL 20MG CAP TAKE 2 CAPSULES BY MOUTH ACTIVE ONCE A DAY Indication: FOR HIGH BLOOD PRESSURE 3) COLCHICINE 0.6MG TAB TAKE ONE TABLET BY MOUTH ONCE A DAY ACTIVE STOP MED AND CONTACT PROVIDER AT FIRST SIGN OF NAUSEA, VOMITING, OR DIARRHEA Indication: FOR GOUT 4) DICLOFENAC NA 1% TOP GEL APPLY 4 GM TO AFFECTED AREA(S) FOUR ACTIVE TIMES A DAY NEEDED DO NOT EXCEED MORE THAN 16 GRAMS DAILY TO ANY LOWER EXTREMITY JOINT. NOT MORE THAN 8 GRAMS DAILY TO ANY UPPER EXTREMITY JOINT. MAX 32GM/DAY OVER ALL JOINTS. (MEASURE DOSE WITH RULER ATTACHED INSIDE BOX) Indication: FOR PAIN 5) OLOPATADINE HCL 0.7% OPH SOLN INSTILL 1 DROP IN BOTH EYES ACTIVE ONCE A DAY Indication: FOR ALLERGIES Active Non-VA Medications Status === 1) Non-VA ATORVASTATIN CALCIUM 80MG TAB 40MG BY MOUTH EVERY ACTIVE EVENING Indication: FOR HIGH CHOLESTEROL 2) Non-VA METFORMIN HCL 500MG 24HR SA TAB 500MG BY MOUTH ONCE A ACTIVE DAY Indication: FOR DIABETES 3) Non-VA METOPROLOL SUCCINATE 50MG SA TAB 25MG BY MOUTH ONCE A ACTIVE DAY Indication: FOR HIGH BLOOD PRESSURE 8 Total Medications Physical Exam VITALS (most recent, as listed in the electronic record): B/P: 148/80 (08/01/2024 14:13) Pulse: 77 (08/01/2024 14:10) Temperature: 98.1 F [36.7 C] (08/01/2024 14:10) Weight: 241 lb [109.32 kg] (08/01/2024 14:10) Height: 73 in [185.4 cm] (08/11/2023 09:47) BMI: 31.9 Pain: 7 (08/01/2024 14:10) (0-10 scale) PMH: PSH: # HTN # HL # DM # gout FH: ROS: DENIES CP SOB DIZZINESS HEAT/COLD INTOLERANCE WT LOSS/GAIN BOWEL/BLADDER PROBLEMS 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 PSA/DARIN TETANUS PNEUMOVAX ZOSTAVAX HIV TESTING SH: SMOKE no ETOH several times a week. URBANARA 07/13/1986 TO 05/05/2008. 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 PE: WDWN male, HEENT: PERRLA EOMI NECK: SUPPLE CV: RRR NO M/R/G LUNGS: CLEAR ABD: SOFT NT BS ACTIVE EXT: NO EDEMA PULSES INTACT NEURO: A/O CNI, GAIT NML A/P # pos anxiety/etoh: MH following now. Aware of f/up appointment. # HTN: repeat at goal. cct for now. # HL: at goal on statin # DM: on long acting metformin. a1c # gout: UA wnl 08/2022. appreciate rheum referral as has been hard to control. Advised re alcohol/dietary discretion and gout. HM: Given all clinic/ER information and contact numbers. Aware that does not have emergency services nor a designated walk in clinic. psa wnl 08/2022. [facility] 12/[facility]22. DISCUSSED DIET AND EXERCISE KEEP FUTURE APPOINTMENTS PATIENT VOICED UNDERSTANDING OF PLAN OF CARE RTC 6 mo, prn Avg Risk Colorectal Cancer Screen - L,N,P,PH: AVERAGE RISK colorectal cancer screening is due based on information available to this clinical reminder Patient has arranged or is choosing to arrange this care independent of and without assistance from this VA. 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 1. The [place] experienced the following events during deployment: Patient denies experiencing any TBI related events during deployment. Negative Screen Screen for Embedded Fragments - L,N,P,S,U: SCREEN FOR EMBEDDED FRAGMENTS The patient reports no embedded fragments. /francine/ MIRANDA GONZALES Staff Physician Signed: 08/01/2024 14:40 08/01/2024 ADDENDUM STATUS: UNSIGNED You may not VIEW this UNSIGNED Addendum. MIRANDA GONZALES [facility] Aug 01, 2024 02:12 PM NURSING NOTE: LOCAL TITLE: V15 PACT FACE TO FACE NOTE STL STANDARD TITLE: NURSING NOTE DATE OF NOTE: AUG 01, 2024@14:12 ENTRY DATE: AUG 01, 2024@14:12:21 AUTHOR: MARGARET WYNN EXP COSIGNER: URGENCY: STATUS: COMPLETED Provider Visit: Patient Identifiers : Full Name Date of Reason for visit: Established Follow-Up Mode of Arrival: Assistive Device: cane Allergy Review: Patient has answered NKA Allergy list reviewed and remains current. Recent Vital Signs: Temperature: 98.1 F [36.7 C] (08/01/2024 14:10) Pulse: 77 (08/01/2024 14:10) Respiration: 18 (08/01/2024 14:10) B/P: 163/88 (08/01/2024 14:10) Pain: 7 (08/01/2024 14:10) Wt: 241 lb [109.32 kg] (08/01/2024 14:10) Ht: 73 in [185.4 cm] (08/11/2023 09:47) BMI: 31.9 POX: 97% (08/01/2024 14:10) Would you like to discuss any personal problem, family problem, alcohol use, drug use, or a mental or emotional illness? No Contact provided Primary Care phone number and encouraged to call if any questions or concerns. Review that after hours nurse line ext.[phone] and emergency room are available 26/01 for patient use. Contact verbalized good understanding. COVID-19 Immunization - L,N,P,PH,U: Refused Pfizer Monovalent COVID-19 vaccine Immunization: COVID-19 (PFIZER), MRNA, LNP-S, PF, JALEN-SUCROSE, 30 MCG/0.3 ML (AGES 12+ YEARS) Refusal Reason: PATIENT DECISION Patient refuses all immunization(s) in the COVID-19 group Date Documented: 08/01/24 14:13 Influenza Immunization - L,N,P,PH,U: Deferral / Refusal The patient declines to receive the recommended dose of seasonal influenza vaccine. Immunization: INFLUENZA, UNSPECIFIED FORMULATION Refusal Reason: PATIENT DECISION Patient refuses all immunization(s) in the FLU group Date Documented: 08/01/24 14:13 /francine/ MARGARET WYNN LPN LICENSED PRACTICAL NURSE Signed: 08/01/2024 14:13 MARGARET WYNN [facility]
--- OUTSIDE RECORDS SUMMARY | 2024-12-13 16:31 | XMS_ITS ---
Author Name [facility] Organization [facility] [place] Address [address] [place] [address] Care Team Providers Care Ordnance Truck Installation Supervisor Name Role Phone MIRANDA GNOZALES Primary Care Provider Nancy hurtado Selected Encounter This section includes the information on record at [place] for the Encounter. Date/Time Encounter Type Encounter Description Reason Provider Source Aug 08, 2024 03:00 PM COMPRE OPH EXAM EST PT 1/> OPTOMETRY ICD-10-CM G43.E19 Chronic migraine with aura, intractable, without stat migr CINDI RODRIGUEZ Harriet Encounter Template Text not used by [place] Assessments - Encounter Diagnoses This section includes the primary and secondary diagnoses documented for the Encounter. Date/Time Primary/Secondary Diagnosis Diagnosis Name Provider Source Aug 08, 2024 03:54 PM PRIMARY Chronic migraine with aura, intractable, without stat migr CINDI RODRIGUEZ [facility] Aug 08, 2024 03:54 PM SECONDARY Age-related nuclear cataract, left eye CINDI RODRIGUEZ [facility] Aug 08, 2024 03:54 PM SECONDARY Age-related nuclear cataract, right eye CINDI RODRIGUEZ [facility] Aug 08, 2024 03:54 PM SECONDARY Dry eye syndrome of bilateral lacrimal glands CINDI RODRIGUEZ [facility] Aug 08, 2024 03:54 PM SECONDARY Presbyopia CINDI RODRIGUEZ Sai [facility] Aug 08, 2024 03:54 PM SECONDARY Type 2 diabetes mellitus without complications CINDI RODRIGUEZ [facility] Plan of Treatment: Future Appointments (+ 6 months) and Future Tests (+/- 45 days) The Plan of Treatment section includes future care activities for the patient [facility] [place] [facility] This section includes future appointments and future orders which are active, pending or scheduled. Future Appointments This section includes appointments that were scheduled to occur 6 months from the date of the Encounter, up to a maximum of 20 appointments. The data comes from all [place] treatment facilities. Appointment Date/Time Appointment Type Appointme nt Facility Name Aug 31, 2024 02:15 PM AMBULATORY - MEDICINE [facility] November 07, 2024 09:00 AM AMBULATORY MEDICINE [facility] Jan 26, 2025 02:00 PM AMBULATORY MEDICINE [facility] Lab Results: +/- 30 days of the encounter This section includes the Chemistry and Hematology Lab Results on record with ND for the patient. Radiology Reports and Pathology Reports are provided separately, in subsequent sections. Lab Results This section contains the Chemistry/Hematology Results that were resulted 30 days before or 30 daysafter the date of the Encounter. Date/Time Source Result Type Result - Unit Interpretation Reference Range Specimen Type Comment Aug 01, 2024 02:47 PM [facility] PROST. SPECIFIC AG.(PB-STL) SERUM Specimen Ty pe: SERUM Comment: The listed sex of this patient may not be a typical indication for this test. Therefore, reference ranges or interpretive criteria listed may not be valid. Clinical correlation suggested. Ordering Provider: SHANELL GONZALES Report Released Date/Time: Aug 01, 2024 02:34 PM Reporting Lab: [facility] #1 [facility] [phone] Performing Lab: [facility] #1 [facility] [phone] PROST. SPECIFIC AG.(PB-STL) 2.674 ng/mL 0.000-4.000 Social History: Smoking Status (Most current) and Tobacco Use (All prior to encounter date) This section includes the most current, and the historical, smoking and tobacco- related health factors from the [place] facility where the Encounter took place. Current Smoking Status This section includes the most current smoking, or tobacco-related health factor, from the [place] facility where the Encounter took place. Date/Time Current Smoking Status Comment Kendall ity Feb 01, 2024 03:00 PM VA-TOBACCO NEVER USED [facility] Tobacco Use History This section includes a history of the smoking, or tobacco-related health factors, that were collected on or before the date of the Encounter. The data comes from the [place] facility where the Encounter took place. Date/Time Smoking Status/Tobacco Use Comment F mavis Jan 05, 2023 02:30 PM ND-TOBACCO NEVER USED [facility] Encounter Notes: All associated encounter notes This section contains the clinical notes associated to the Encounter. Date/Time Encounter Note(s) Provider Source Aug 08, 2024 02:44 PM OPTOMETRY NOTE: LOCAL TITLE: OPTOMETRY NOTE STANDARD TITLE: OPTOMETRY NOTE DATE OF NOTE: AUG 08, 2024@14:44 ENTRY DATE: AUG 08, 2024@14:44:55 AUTHOR: CALIXTO RODRIGUEZ COSIGNER: URGENCY: STATUS: COMPLETED CC: 1. Migraines severe migraines x every other week takes no meds for them can last upwards of 1-2 days 2. dry eye/allergies refresh - qdaily pataday 0.7% - does not use, doesn't remember getting 3. Metformin last A1c 5.7 - gets at [facility] taking metformin only dx: during covid 4. Vision wears sha tinted PAL glasses for migraines likes PAL design vs DVO/NVO Last eye exam: 02/08/2024 Ocular ROS: Migraines c aura h/o Central Serous Chorioretinopathy OD Diabetes without retinopathy Dry eye syndrome Cataracts OU Ocular meds: Refresh 0.5% - qdaily OLOPATADINE HCL 0.7% OPH SOLN - does not use Family OcHX: (-)blindness (-)glaucoma (-)AMD Problem list, medications, and allergies reviewed: [facility] Serology for Diabetes GLUCOSE 98 mg/dL 04/11/2024 10:11 A1c 5.7 Neuro: Orientation: Normal Psych: Mood/Affect: Normal Visual Acuity Distance (x)cc ()sc OD 20/20-! OS 20/20- Pupils PERRL OU (-)APD Confrontation VF FTFC OU Extraocular Muscles FROM OU Habitual prescription 08/17/2023 OD plano-1.29g743 20/25+2 OS plano-1.34v966 20/25+2 add +2.00 DVO/NVO Manifest Refraction 08/08/2024 OD plano-0.80x721 20/20 slow OS plano-0.93c768 20/20 Add +2.25 SLIT LAMP EXAMINATION Lids/Lashes/Lacrimal mgd OU Conjunctiva/Sclera white/quiet OU, BAM OU Cornea clear OU Ant Chamber Deep and quiet OU Angles 4/4 VH OU Iris flat and intact OU (-)NVI Lens 1+ NS OU Intraocular Pressures (Goldmann) 1 gtt Altafluor OU Date OD OS Time 08/17/23 21 20 1103 *blepharospasm 02/08/24 18 19 1514 08/10/2022 21 19 1325 igt 2.5% phenylephrine and igt 1% tropicamide instilled OD and OS Patient understands the side effects associated with dilation. FUNDUS EXAMINATION (90/BIO) Optic Nerve OD CDR 0.6 pink and distinct OS CDR 0.65 pink and distinct large optic nerve head diameter Macula OD mottling, dry (-)CSME OS tr drusen, dry (-)CSME Posterior Pole OD no retinopathy OS no retinopathy Periphery OD flat and attached, no h/t/b 360 OS flat and attached, no h/t/b 360 Vitreous syneresis OU Assessment 08/08/2024 1. Refractive error/presbyopia 2. DM without retinopathy or CSME OU dx ~2020 last A1c 5.7 ([facility]) 3. Cataracts OU 4. Dry eye syndrome with ocular allergies 5. Migraine with aura has FL-41 tinted glasses rx previously evaluated by low vision clinic previously - [facility] 09/25, 11/25 with no neurological defect noted - discussed MRI previously; pt declined - PCP alerted previously 6. h/o central serous chorioretinopathy OD per chart review JLV/DoD likely cause of spot in vision - fundus photos 09/2022 Plan 1. Order new glasses - progressive/FL-41/photochrom atic/AR 2. Educate on good blood glucose control, monitor 3. Defer cataract extraction at this time, monitor. 4. Renew refresh 0.5% tid/prn. Educated on condition. Patient will alert clinic if pataday is needed. Educated on condition, monitor. 5. Patient does not want to treat migraines currently. Discussed OTC remedies with patient. Educated patient to alert PCP if he decides to pursue medical management. Monitor. 6. Monitor; no recurrence today. RTC 1 year or sooner prn with OCT Macula Patient was educated on all of the above findings and demonstrated understanding. /es/ Calixto Rodriguez, OD, [facility] Highway Maintenance Worker Signed: 08/08/2024 15:55 CALIXTO RODRIGUEZ [facility]
--- OUTSIDE RECORDS SUMMARY | 2024-12-13 16:31 | XMS_ITS | Continuity of Care Document ---
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 virus vaccine, whole virus 0 1996 16 () complet ed influenza virus vaccine, whole virus DoD hepatitis A adult vaccine 1996 52 complet ed hepatitis A adult vaccine 10/27/96 Given Ambulat ory Pharmac y hepatitis A vaccine, adult dosage 2 1996 52 () complet ed hepatitis A vaccine, adult dosage DoD hepatitis A adult vaccine 1995 52 complet ed hepatitis A adult vaccine 04/06/96 Given Ambulat ory Pharmac y hepatitis A vaccine, adult dosage 1 1995 52 () complet ed hepatitis A vaccine, adult dosage DoD yellow fever vaccine 1995 37 complet ed yellow fever vaccine 12/30/95 Given Ambulat ory Pharmac y yellow fever vaccine 0 1995 37 () complet ed yellow fever vaccine DoD typhoid, parenteral, AKD 1995 53 complet ed typhoid, parentera l, AKD 12/18/95 Given Ambulat ory Pharmac y typhoid vaccine, parenteral, acetone-kille d, dried ([place] ) 2 1995 53 () complet ed typhoid vaccine, parentera l, acetone-k illed, dried ([place] ) DoD tetanus-dipht h toxoids (Td) adult/adol 1992 09 complet ed tetanus-d iphth toxoids (Td) adult/ado l 12/28/92 Given Ambulat ory Pharmac y tetanus and diphtheria toxoids, adsorbed, preservative free, for adult use (2 Lf of tetanus toxoid and 2 Lf of diphtheria toxoid) 0 1992 09 () complet ed tetanus and diphtheri a toxoids, adsorbed, preservat corrie free, for adult use (2 Lf of tetanus toxoid and 2 Lf of diphtheri a toxoid) DoD poliovirus vaccine, live, oral 1986 02 complet ed polioviru s vaccine, live, oral 11/24/86 Given Ambulat ory Pharmac y trivalent poliovirus vaccine, live, oral 0 1986 02 () complet ed trivalent polioviru s vaccine, live, oral DoD meningococcal polysaccharid e (MPSV4) 1985 32 complet ed meningoco ccal polysacch aride (MPSV4) 07/19/85 Given Ambulat ory Pharmac y meningococcal polysaccharid e vaccine (MPSV4) 0 1985 32 () complet ed meningoco ccal polysacch aride vaccine (MPSV4) DoD measles/mumps /rubella virus vaccine 1985 03 complet ed measles/m umps/rube lla virus vaccine 07/10/85 Given Ambulat ory Pharmac y measles, mumps and rubella virus vaccine 0 1985 03 () complet ed measles, mumps and rubella virus vaccine DoD Results Combined list of recent chemistry, hematology and other laboratory results from [facility] [employer] and [facility], ranging from 15 months to all on record, depending upon the facility. Order Name Results Value Reference Range Date Interpretation Specimen Comments Source PROST. SPECIFIC AG.(PB-ST L) PROSTATE SPECIFIC AG [MASS/VOLUM E] IN SERUM OR PLASMA 2.674 ng/mL 0.000 - 4.000 08/01 Specimen Type: SERUM Comment: The listed sex of this patient may not be a typical indication for this test. Therefore, reference ranges or interpretiv e criteria listed may not be valid. Clinical correlation suggested. Ordering Provider: Juanita GONZALES Report Released Date/Time: Aug 01, 2024 02:34 PM Reporting Lab: [facility] [phone] Performing Lab: [facility] [phone] [facility] Chemistry eGFR CKD EPI 105 mL/min /1.73_ m2 07/29 Interpretiv e Data: Estimated Glomerular Filtration Rate (eGFR) calculated using the 2020 Chronic Kidney Disease-Epi demiology (CKD-EPI) Collaborati on creatinine equation; units of measure are mL/min/1.73 m2. Results are only valid for adults (>=18 years) whose serum creatinine is in steady state. eGFR calculation s are not valid for patients with acute kidney injury and for patients on dialysis. Creatinine- based estimates of kidney function may also be inaccurate in patients with reduced creatinine generation due to decreased muscle mass (e.g., malnutritio n, severe hypoalbumin emia, sarcopenia, chronic neuromuscul ar disease, amputations , severe heart failure or liver disease) and in patients with increased creatinine generation due to increased muscle mass (e.g., muscle builders, anabolic steroids) or increased dietary intake. CKD is diagnosed based on abnormaliti es of kidney structure or function, present for >3 months, with implication s for health and disease. CKD is classified and staged based on cause, eGFR and albuminuria (quantified as urine albumin to creatinine ratio). An eGFR >60 mL/min/1.73 m2 in the absence of increased urine albumin excretion or structural abnormaliti es does not CKD. eGFR provides only an estimate of measured GFR within +/- 30% for most patients. As mentioned, nutritional status and muscle mass, among many factors, may lead to inaccuracy in the estimate. Consider ordering the creatinine- cystatin C panel if better accuracy is needed for clinical decision-trey chacon. eGFR (mL/min/1.7 3 m2) CKD stage Interpretat ion Normal 60-89 Mild decrease 45-59 Mild to moderate decrease 30-44 Moderate to severe decrease 15-29 Severe decrease <15 Kidney failure [facility] Chol/HDL 2 mg/dL 07/29 [facility] Cholesterol Total 174 mg/dL 07/29 N Interpretiv e Data: According to the [place] [employer] : AGES 0-19: Desirable: < 170 mg/dL Borderline High: 170-199 mg/dL High Blood Cholesterol : >/= 200 mg/dL ADULTS: Desirable < 200 mg/dL Borderline High: 200-239 mg/dL High Blood Cholesterol : >/= 240 mg/dL [facility] Chemistry LDL/HDL 1 07/29 [facility] Chemistry LDL 117 mg/dL 100 - 130 07/29 N Interpretiv e Data: AGES 0-19: Desirable: < 110 mg/dL Borderline High: 110-129 mg/dL High: >/= 130 mg/dL ADULTS: Desirable: <100 mg/dL Near/above optimal: 100-130 mg/dL Borderline High: 131-159 mg/dL High: 160-189 mg/dL Very High: 190 mg/dL [facility] Chemistry HDL Cholesterol 79 mg/dL 40 - 59 07/29 H Interpretiv e Data: HDL (HIGH DENSITY LIPOPROTEIN ): ADULTS: Low: < 40 mg/dL High: >/= 60 mg/dL AGES 0 -19: Low: < 40 mg/dL Borderline Low: 40 - 45 mg/dL Acceptable: > 45 mg/dL [facility] Chemistry Triglycerid es 84 mg/dL 7 - 149 07/29 N Interpretiv e Data: AGES 0-9: Desirable: < 75 mg/dL Borderline High: 75-99 mg/dL High: >/= 100 mg/dL AGES 10-19: Desirable: < 90 mg/dL Borderline High: 90-129 mg/dL High: >/= 130 mg/dL ADULTS: Desirable: < 150 mg/dL Borderline High: 150-199 mg/dL High: >/= 240 mg/dL Very High: >/= 500 mg/dL [facility] Chemistry Hemoglobin A1c 5.7 % 4.0 - 5.6 07/29 H Interpretiv e Data: Normal: 4.0 - 5.6% Increased Risk: 5.7 - 6.4% Diabetic Range: 6.5% For patients without diabetes, the normal range for the hemoglobin A1c test is between 4% and 5.6%. Hemoglobin A1c levels between 5.7% and 6.4% indicate increased risk of diabetes, and levels of 6.5% or higher indicate diabetes. Because studies have repeatedly shown that out-of-cont rol diabetes results in complicatio ns from the disease, the goal for people with diabetes is a hemoglobin A1c less than 7%. The higher the hemoglobin A1c, the higher the risks of developing complicatio ns related to diabetes. If confirmatio n is needed, consider recalling the patient and ordering Hemoglobin Electrophor esis. [facility] eAvg Glucose 117 mg/dL 07/29 [facility] Potassium Lvl 4.2 mmol/L 3.5 - 5.1 07/29 N [facility] Chemistry Glucose Lvl 86 mg/dL 74 - 99 07/29 N [facility] Protein Total 8.8 g/dL 6.4 - 8.3 07/29 H [facility] Chemistry Albumin 4.60 g/dL 3.50 - 5.20 07/29 N [facility] Chemistry AGAP 9.00 0.00 - 15.00 07/29 N [facility] Sodium 142 mmol/L 136 - 145 07/29 N [facility] AST 26 U/L 5 - 34 07/29 N [facility] Chemistry Bilirubin Total 0.5 mg/dL 0.2 - 1.2 07/29 [facility] BUN 9 mg/dL 8 - 26 07/29 N [facility] Chemistry Alk Phos 41 U/L 40 - 150 07/29 N [facility] ALT 42 U/L 5 - 55 07/29 N [facility] Chemistry Chloride 105 mmol/L 98 - 107 07/29 [facility] CO2 28 mmol/L 22 - 29 07/29 N [facility] Chemistry Creatinine Level 0.70 mg/dL 0.72 - 1.25 07/29 L [facility] Chemistry BUN/Creat Ratio 13 mg/dL 12 - 20 07/29 N [facility] Calcium 10.2 mg/dL 8.4 - 10.2 07/29 N -375 [facility] Ur Microalbumi n 63 mg/L 07/29 H Interpretiv e Data: To minimize intra-indiv idual variation, analysis of three random urine samples collected over the course of a week has also been recommended . -375 [facility] Uric Acid 8.4 mg/dL 3.5 - 7.2 07/29 H [facility] URIC ACID URATE [MASS/VOLUM E] IN SERUM OR PLASMA 8.5 mg/dL 3.5 - 7.2 04/11 H Specimen Type: PLASMA Comment: No hemolysis noted. Ordering Provider: SA DOUG DIAS Report Released Date/Time: Apr 11, 2024 09:38 AM Reporting Lab: [address] [address] Performing Lab: [address] [address] [facility]IVE METABOLIC PANEL CREATININE [MASS/VOLUM E] IN SERUM OR PLASMA 0.83 mg/dL 0.7 - 1.3 04/11 Specimen Type: PLASMA Comment: No hemolysis noted. Ordering Provider: SA DOUG DIAS Report Released Date/Time: Apr 11, 2024 09:38 AM Reporting Lab: [facility] [address] [place] [phone] Performing Lab: [facility] [address] [place] [phone] [facility] COMPREHEN SIVE METABOLIC PANEL UREA NITROGEN [MASS/VOLUM E] IN SERUM OR PLASMA 8.4 mg/dL 9.0 - 25.0 04/11 L Specimen Type: PLASMA Comment: No hemolysis noted. Ordering Provider: SA DOUG DIAS Report Released Date/Time: Apr 11, 2024 09:38 AM Reporting Lab: [facility] [address] [place] [phone] Performing Lab: [facility] [address] [address] [facility] COMPREHEN SIVE METABOLIC PANEL GLUCOSE [MASS/VOLUM E] IN SERUM OR PLASMA 98 mg/dL 72 - 99 04/11 Specimen Type: PLASMA Comment: No hemolysis noted. Ordering Provider: SA DOUG DIAS Report Released Date/Time: Apr 11, 2024 09:38 AM Reporting Lab: [facility] [address] [facility] [address] Performing Lab: [place] [address] [facility] [address] [facility] COMPREHEN SIVE METABOLIC PANEL SODIUM [MOLES/VOLU ME] IN SERUM OR PLASMA 140 meq/L 136 - 145 04/11 Specimen Type: PLASMA Comment: No hemolysis noted. Ordering Provider: SA DOUG DIAS Report Released Date/Time: Apr 11, 2024 09:38 AM Reporting Lab: [facility] [address] [address] Performing Lab: [facility] [address] [address] [facility] COMPREHEN SIVE METABOLIC PANEL POTASSIUM [MOLES/VOLU ME] IN SERUM OR PLASMA 3.9 meq/L 3.5 - 5 04/11 Specimen Type: PLASMA Comment: No hemolysis noted. Ordering Provider: SA DOUG DIAS Report Released Date/Time: Apr 11, 2024 09:38 AM Reporting Lab: [facility] [address] [address] Performing Lab: [place] [address] [facility] [address] [facility] COMPREHEN SIVE METABOLIC PANEL CHLORIDE [MOLES/VOLU ME] IN SERUM OR PLASMA 107 meq/L 98 - 107 04/11 Specimen Type: PLASMA Comment: No hemolysis noted. Ordering Provider: SA DOUG DIAS Report Released Date/Time: Apr 11, 2024 09:38 AM Reporting Lab: [facility] [address] [facility] [address] Performing Lab: [facility] [address] [place] [phone] [facility] COMPREHEN SIVE METABOLIC PANEL CARBON DIOXIDE, TOTAL [MOLES/VOLU ME] IN SERUM OR PLASMA 21 meq/L 22 - 31 04/11 L Specimen Type: PLASMA Comment: No hemolysis noted. Ordering Provider: SA DOUG DIAS Report Released Date/Time: Apr 11, 2024 09:38 AM Reporting Lab: [address] [address] Performing Lab: [place] [address] [facility] [address] [facility] COMPREHEN SIVE METABOLIC PANEL CALCIUM [MASS/VOLUM E] IN SERUM OR PLASMA 9.8 mg/dL 8.4 - 10.4 04/11 Specimen Type: PLASMA Comment: No hemolysis noted. Ordering Provider: SA DOUG DIAS Report Released Date/Time: Apr 11, 2024 09:38 AM Reporting Lab: [address] [address] Performing Lab: [place] [address] [facility] [address] [facility] COMPREHEN SIVE METABOLIC PANEL PROTEIN [MASS/VOLUM E] IN SERUM OR PLASMA 7.9 g/dL 6 - 8.6 04/11 Specimen Type: PLASMA Comment: No hemolysis noted. Ordering Provider: SA DOUG DIAS Report Released Date/Time: Apr 11, 2024 09:38 AM Reporting Lab: [address] [address] Performing Lab: [address] [address] [facility] COMPREHEN SIVE METABOLIC PANEL ALBUMIN [MASS/VOLUM E] IN SERUM OR PLASMA 4.8 g/dL 3.4 - 5 04/11 Specimen Type: PLASMA Comment: No hemolysis noted. Ordering Provider: SA DOUG DIAS Report Released Date/Time: Apr 11, 2024 09:38 AM Reporting Lab: [facility] [address] [facility] [address] Performing Lab: [facility] [address] [facility] [address] [facility] COMPREHEN SIVE METABOLIC PANEL BILIRUBIN.T OTAL [MASS/VOLUM E] IN SERUM OR PLASMA 0.3 mg/dL 0.2 - 1.2 04/11 Specimen Type: PLASMA Comment: No hemolysis noted. Ordering Provider: SA DOUG DIAS Report Released Date/Time: Apr 11, 2024 09:38 AM Reporting Lab: [address] [address] Performing Lab: [facility] [address] [place], [place] [phone] COMPREHEN SIVE METABOLIC PANEL ALKALINE PHOSPHATASE [ENZYMATIC ACTIVITY/VO LUME] IN SERUM OR PLASMA 41 U/L 40 - 150 04/11 Specimen Type: PLASMA Comment: No hemolysis noted. Ordering Provider: SA DOUG DIAS Report Released Date/Time: Apr 11, 2024 09:38 AM Reporting Lab: [address] [address] Performing Lab: [facility] [address] [place] [address] [facility] COMPREHEN SIVE METABOLIC PANEL ASPARTATE AMINOTRANSF ERASE [ENZYMATIC ACTIVITY/VO LUME] IN SERUM OR PLASMA 38 U/L 5 - 34 04/11 H Specimen Type: PLASMA Comment: No hemolysis noted. Ordering Provider: SA DOUG DIAS Report Released Date/Time: Apr 11, 2024 09:38 AM Reporting Lab: [facility] [address] [facility] [address] Performing Lab: [facility] [address] [place] [phone] [place] [address] COMPREHEN SIVE METABOLIC PANEL ALANINE AMINOTRANSF ERASE [ENZYMATIC ACTIVITY/VO LUME] IN SERUM OR PLASMA 51 U/L 8 - 40 04/11 H Specimen Type: PLASMA Comment: No hemolysis noted. Ordering Provider: SA DOUG DIAS Report Released Date/Time: Apr 11, 2024 09:38 AM Reporting Lab: [place] [address] Performing Lab: [address] COMPREHEN SIVE METABOLIC PANEL GLOMERULAR FILTRATION RATE/1.73 SQ M.PREDICTED [VOLUME RATE/AREA] IN SERUM, PLASMA OR BLOOD BY CREATININE- BASED FORMULA (CKD-EPI 2020) 100.8 60 04/11 Specimen Type: PLASMA Comment: No hemolysis noted. Ordering Provider: SA DOUG DIAS Report Released Date/Time: Apr 11, 2024 09:38 AM Reporting Lab: [place] [phone] Performing Lab: [address] VITAMIN D, 25-HYDROX Y 25-HYDROXYV ITAMIN D3 [MASS/VOLUM E] IN SERUM OR PLASMA 27.2 ng/mL 30 - 96 04/11 L Specimen Type: SERUM No comment entered. Ordering Provider: SA DOUG DIAS Report Released Date/Time: Apr 11, 2024 09:41 AM Reporting Lab: [place] [address] Performing Lab: [address] CBC LEUKOCYTES [#/VOLUME] IN BLOOD BY AUTOMATED COUNT 5.4 10*3/u L 3.6 - 11.2 04/11 Specimen Type: BLOOD No comment entered. Ordering Provider: SA DOUG DIAS Report Released Date/Time: Apr 11, 2024 09:38 AM Reporting Lab: [place] [address] [facility] [address] Performing Lab: [place] [phone] [place] [address] CBC ERYTHROCYTE S [#/VOLUME] IN BLOOD BY AUTOMATED COUNT 5.10 10*6/u L 4.10 - 5.70 04/11 Specimen Type: BLOOD No comment entered. Ordering Provider: SA DOUG DIAS Report Released Date/Time: Apr 11, 2024 09:38 AM Reporting Lab: [place] [phone] Performing Lab: [place] [address] CBC HEMOGLOBIN [MASS/VOLUM E] IN BLOOD 15.1 g/dL 13.1 - 16.8 04/11 Specimen Type: BLOOD No comment entered. Ordering Provider: SA DOUG DIAS Report Released Date/Time: Apr 11, 2024 09:38 AM Reporting Lab: [place] [phone] Performing Lab: [place] [address] [facility] [phone] CBC HEMATOCRIT [VOLUME FRACTION] OF BLOOD 44.1 38.2 - 48.4 04/11 Specimen Type: BLOOD No comment entered. Ordering Provider: SA DOUG DIAS Report Released Date/Time: Apr 11, 2024 09:38 AM Reporting Lab: [place] [address] [facility] [address] Performing Lab: [address] CBC MCV [ENTITIC VOLUME] BY AUTOMATED COUNT 86.5 fL 80.0 - 100.0 04/11 Specimen Type: BLOOD No comment entered. Ordering Provider: SA DOUG DIAS Report Released Date/Time: Apr 11, 2024 09:38 AM Reporting Lab: [address] [address] Performing Lab: [address] [address] [facility] CBC MCH [ENTITIC MASS] BY AUTOMATED COUNT 29.6 pg 27.0 - 34.0 04/11 Specimen Type: BLOOD No comment entered. Ordering Provider: SA DOUG DIAS Report Released Date/Time: Apr 11, 2024 09:38 AM Reporting Lab: [address] [address] Performing Lab: [address] [address] [facility] CBC MCHC [MASS/VOLUM E] BY AUTOMATED COUNT 34.2 g/dL 33.0 - 36.0 04/11 Specimen Type: BLOOD No comment entered. Ordering Provider: SA DOUG DIAS Report Released Date/Time: Apr 11, 2024 09:38 AM Reporting Lab: [address] [address] Performing Lab: [address] [address] [facility] CBC PLATELETS [#/VOLUME] IN BLOOD BY AUTOMATED COUNT 135 10*3/u L 150 - 400 04/11 L Specimen Type: BLOOD No comment entered. Ordering Provider: SA DOUG DIAS Report Released Date/Time: Apr 11, 2024 09:38 AM Reporting Lab: [address] [address] Performing Lab: [address] [address] [facility] CBC PLATELET MEAN VOLUME [ENTITIC VOLUME] IN BLOOD BY AUTOMATED COUNT 12.6 fL 7.5 - 11.2 04/11 H Specimen Type: BLOOD No comment entered. Ordering Provider: SA DOUG DIAS Report Released Date/Time: Apr 11, 2024 09:38 AM Reporting Lab: [facility] [address] [place] [phone] Performing Lab: [facility] [address] [place] [phone] [facility] CBC ERYTHROCYTE DISTRIBUTIO N WIDTH [RATIO] BY AUTOMATED COUNT 12.7 11.8 - 15.1 04/11 Specimen Type: BLOOD No comment entered. Ordering Provider: SA DOUG DIAS Report Released Date/Time: Apr 11, 2024 09:38 AM Reporting Lab: [facility] [address] [place] [phone] Performing Lab: [facility] [address] [place] [address] [phone] CBC LYMPHOCYTES /100 LEUKOCYTES IN BLOOD BY AUTOMATED COUNT 32 04/11 Specimen Type: BLOOD No comment entered. Ordering Provider: SA DOUG DIAS Report Released Date/Time: Apr 11, 2024 09:38 AM Reporting Lab: [facility] [address] [place] [phone] Performing Lab: [facility] [address] [place] [phone] [facility] CBC MONOCYTES/1 00 LEUKOCYTES IN BLOOD BY AUTOMATED COUNT 7 04/11 Specimen Type: BLOOD No comment entered. Ordering Provider: SA DOUG DIAS Report Released Date/Time: Apr 11, 2024 09:38 AM Reporting Lab: [facility] [address] Performing Lab: [facility] [address] [facility] CBC NEUTROPHILS /100 LEUKOCYTES IN BLOOD BY AUTOMATED COUNT 60 04/11 Specimen Type: BLOOD No comment entered. Ordering Provider: SA DOUG DIAS Report Released Date/Time: Apr 11, 2024 09:38 AM Reporting Lab: [facility] [address] [facility] [address] Performing Lab: [facility] [address] [place] [phone] [facility] CBC EOSINOPHILS /100 LEUKOCYTES IN BLOOD BY AUTOMATED COUNT 1 04/11 Specimen Type: BLOOD No comment entered. Ordering Provider: SA DOUG DIAS Report Released Date/Time: Apr 11, 2024 09:38 AM Reporting Lab: [address] [address] Performing Lab: [address] [address] [facility] CBC BASOPHILS/1 00 LEUKOCYTES IN BLOOD BY AUTOMATED COUNT 0 04/11 Specimen Type: BLOOD No comment entered. Ordering Provider: SA DOUG DIAS Report Released Date/Time: Apr 11, 2024 09:38 AM Reporting Lab: [address] [address] Performing Lab: [address] [address] [facility] CBC LYMPHOCYTES [#/VOLUME] IN BLOOD BY AUTOMATED COUNT 1.71 10*3/u L 0.77 - 4.50 04/11 Specimen Type: BLOOD No comment entered. Ordering Provider: SA DOUG DIAS Report Released Date/Time: Apr 11, 2024 09:38 AM Reporting Lab: [address] [address] Performing Lab: [address] [address] [facility] CBC MONOCYTES [#/VOLUME] IN BLOOD BY AUTOMATED COUNT 0.37 10*3/u L 0.19 - 0.80 04/11 Specimen Type: BLOOD No comment entered. Ordering Provider: SA DOUG DIAS Report Released Date/Time: Apr 11, 2024 09:38 AM Reporting Lab: [address] [address] Performing Lab: [address] [address] [facility] CBC NEUTROPHILS [#/VOLUME] IN BLOOD BY AUTOMATED COUNT 3.27 10*3/u L 2.10 - 8.00 04/11 Specimen Type: BLOOD No comment entered. Ordering Provider: SA DOUG DIAS Report Released Date/Time: Apr 11, 2024 09:38 AM Reporting Lab: [address] [address] Performing Lab: [address] [phone] CBC EOSINOPHILS [#/VOLUME] IN BLOOD BY AUTOMATED COUNT 0.05 10*3/u L 0.00 - 0.60 04/11 Specimen Type: BLOOD No comment entered. Ordering Provider: SA DOUG DIAS Report Released Date/Time: Apr 11, 2024 09:38 AM Reporting Lab: [address] [address] Performing Lab: [address] [phone] [address] CBC BASOPHILS [#/VOLUME] IN BLOOD BY AUTOMATED COUNT 0.01 10*3/u L 0.00 - 0.20 04/11 Specimen Type: BLOOD No comment entered. Ordering Provider: SA DOUG DIAS Report Released Date/Time: Apr 11, 2024 09:38 AM Reporting Lab: [address] [address] Performing Lab: [address] [phone] [address] Chemistry Uric Acid 7.4 mg/dL 3.5 - 7.2 09/08 H [id number] th [facility] CPK CREATINE KINASE [ENZYMATIC ACTIVITY/VO LUME] IN SERUM OR PLASMA 573 U/L 30 - 200 08/11 H Specimen Type: PLASMA No comment entered. Ordering Provider: SA DOUG DIAS Report Released Date/Time: Aug 11, 2023 10:24 AM Reporting Lab: [facility] [address] [facility] [address] Performing Lab: [facility] [address] [facility] [address] [facility] Chemistry eGFR CKD EPI 102 mL/min /1.73_ m2 07/30 Interpretiv e Data: Estimated Glomerular Filtration Rate (eGFR) calculated using the 2020 Chronic Kidney Disease-Epi demiology (CKD-EPI) Collaborati on creatinine equation; units of measure are mL/min/1.73 m2. Results are only valid for adults (>=18 years) whose serum creatinine is in steady state. eGFR calculation s are not valid for patients with acute kidney injury and for patients on dialysis. Creatinine- based estimates of kidney function may also be inaccurate in patients with reduced creatinine generation due to decreased muscle mass (e.g., malnutritio n, severe hypoalbumin emia, sarcopenia, chronic neuromuscul ar disease, amputations , severe heart failure or liver disease) and in patients with increased creatinine generation due to increased muscle mass (e.g., muscle builders, anabolic steroids) or increased dietary intake. CKD is diagnosed based on abnormaliti es of kidney structure or function, present for >3 months, with implication s for health and disease. CKD is classified and staged based on cause, eGFR and albuminuria (quantified as urine albumin to creatinine ratio). An eGFR >60 mL/min/1.73 m2 in the absence of increased urine albumin excretion or structural abnormaliti es does not CKD. eGFR provides only an estimate of measured GFR within +/- 30% for most patients. As mentioned, nutritional status and muscle mass, among many factors, may lead to inaccuracy in the estimate. Consider ordering the creatinine- cystatin C panel if better accuracy is needed for clinical decision-trey chacon. eGFR (mL/min/1.7 3 m2) CKD stage Interpretat ion Normal 60-89 Mild decrease 45-59 Mild to moderate decrease 30-44 Moderate to severe decrease 15-29 Severe decrease <15 Kidney failure [facility] Chloride 104 mmol/L 98 - 107 07/30 N [facility] CO2 26 mmol/L 22 - 29 07/30 N 375 [facility] Calcium 9.7 mg/dL 8.4 - 10.2 07/30 N 375 [facility] BUN/Creat Ratio 10 mg/dL 12 - 20 07/30 L -375 [facility] Potassium Lvl 3.8 mmol/L 3.5 - 5.1 07/30 N 375 [facility] Sodium 139 mmol/L 136 - 145 07/30 N 375 [facility] Glucose Lvl 100 mg/dL 74 - 99 07/30 H [facility] Creatinine Level 0.80 mg/dL 0.72 - 1.25 07/30 N 375 [facility] ALT 40 U/L 5 - 55 07/30 N [facility] Alk Phos 39 U/L 40 - 150 07/30 L -375 [facility] AGAP 9.00 0.00 - 15.00 07/30 N [facility] Albumin 4.30 g/dL 3.50 - 5.20 07/30 N [facility] Protein Total 7.8 g/dL 6.4 - 8.3 07/30 N 375 [facility] BUN 8 mg/dL 8 - 26 07/30 N 375 [facility] AST 26 U/L 5 - 34 07/30 N [facility] Bilirubin Total 0.5 mg/dL 0.2 - 1.2 07/30 N [facility] HDL Cholesterol 54 mg/dL 40 - 59 07/30 N Interpretiv e Data: HDL (HIGH DENSITY LIPOPROTEIN ): ADULTS: Low: < 40 mg/dL High: >/= 60 mg/dL AGES 0 -19: Low: < 40 mg/dL Borderline Low: 40 - 45 mg/dL Acceptable: > 45 mg/dL [facility] LDL 148 mg/dL 100 - 130 07/30 H Interpretiv e Data: AGES 0-19: Desirable: < 110 mg/dL Borderline High: 110-129 mg/dL High: >/= 130 mg/dL ADULTS: Desirable: <100 mg/dL Near/above optimal: 100-130 mg/dL Borderline High: 131-159 mg/dL High: 160-189 mg/dL Very High: 190 mg/dL [facility] Chol/HDL 4 mg/dL 07/30 [facility] Cholesterol Total 221 mg/dL 07/30 H Interpretiv e Data: According to the [place] [employer] : AGES 0-19: Desirable: < 170 mg/dL Borderline High: 170-199 mg/dL High Blood Cholesterol : >/= 200 mg/dL ADULTS: Desirable < 200 mg/dL Borderline High: 200-239 mg/dL High Blood Cholesterol : >/= 240 mg/dL [facility] LDL/HDL 3 07/30 [facility] Triglycerid es 154 mg/dL 7 - 149 07/30 H Interpretiv e Data: AGES 0-9: Desirable: < 75 mg/dL Borderline High: 75-99 mg/dL High: >/= 100 mg/dL AGES 10-19: Desirable: < 90 mg/dL Borderline High: 90-129 mg/dL High: >/= 130 mg/dL ADULTS: Desirable: < 150 mg/dL Borderline High: 150-199 mg/dL High: >/= 240 mg/dL Very High: >/= 500 mg/dL [facility] CBC LEUKOCYTES [#/VOLUME] IN BLOOD BY AUTOMATED COUNT 6.2 10*3/u L 3.6 - 11.2 04/21 Specimen Type: BLOOD No comment entered. Ordering Provider: SA DOUG DIAS Report Released Date/Time: Apr 21, 2023 09:59 AM Reporting Lab: [facility] [place] [phone] Performing Lab: [facility] [facility] [phone] [facility]ISION CBC ERYTHROCYTE S [#/VOLUME] IN BLOOD BY AUTOMATED COUNT 5.23 10*6/u L 4.10 - 5.70 04/21 Specimen Type: BLOOD No comment entered. Ordering Provider: SA DOUG DIAS Report Released Date/Time: Apr 21, 2023 09:59 AM Reporting Lab: [facility] [place] [address] Performing Lab: [facility] CBC HEMOGLOBIN [MASS/VOLUM E] IN BLOOD 15.4 g/dL 13.1 - 16.8 04/21 Specimen Type: BLOOD No comment entered. Ordering Provider: SA DOUG DIAS Report Released Date/Time: Apr 21, 2023 09:59 AM Reporting Lab: [facility] [place] [address] Performing Lab: [facility] CBC HEMATOCRIT [VOLUME FRACTION] OF BLOOD 46.3 38.2 - 48.4 04/21 Specimen Type: BLOOD No comment entered. Ordering Provider: SA DOUG DIAS Report Released Date/Time: Apr 21, 2023 09:59 AM Reporting Lab: [facility] [place] [phone] Performing Lab: [facility] CBC MCV [ENTITIC VOLUME] BY AUTOMATED COUNT 88.5 fL 80.0 - 100.0 04/21 Specimen Type: BLOOD No comment entered. Ordering Provider: SA DOUG DIAS Report Released Date/Time: Apr 21, 2023 09:59 AM Reporting Lab: [facility] [facility] [address] Performing Lab: [facility] [facility] [phone] DIVISION CBC MCH [ENTITIC MASS] BY AUTOMATED COUNT 29.4 pg 27.0 - 34.0 04/21 Specimen Type: BLOOD No comment entered. Ordering Provider: SA DOUG DIAS Report Released Date/Time: Apr 21, 2023 09:59 AM Reporting Lab: [facility] [place] [address] Performing Lab: [facility] [facility] [phone] [facility]ISION CBC MCHC [MASS/VOLUM E] BY AUTOMATED COUNT 33.3 g/dL 33.0 - 36.0 04/21 Specimen Type: BLOOD No comment entered. Ordering Provider: SA DOUG DIAS Report Released Date/Time: Apr 21, 2023 09:59 AM Reporting Lab: [facility] [place] [address] Performing Lab: [facility] DIVISION CBC PLATELETS [#/VOLUME] IN BLOOD BY AUTOMATED COUNT 150 10*3/u L 150 - 400 04/21 Specimen Type: BLOOD No comment entered. Ordering Provider: SA DOUG DIAS Report Released Date/Time: Apr 21, 2023 09:59 AM Reporting Lab: [facility] [address] Performing Lab: [facility] DIVISION CBC PLATELET MEAN VOLUME [ENTITIC VOLUME] IN BLOOD BY AUTOMATED COUNT 11.3 fL 7.5 - 11.2 04/21 H Specimen Type: BLOOD No comment entered. Ordering Provider: SA DOUG DIAS Report Released Date/Time: Apr 21, 2023 09:59 AM Reporting Lab: [facility] [place] [address] Performing Lab: [facility] [place] [phone] DIVISION CBC ERYTHROCYTE DISTRIBUTIO N WIDTH [RATIO] BY AUTOMATED COUNT 12.9 11.8 - 15.1 04/21 Specimen Type: BLOOD No comment entered. Ordering Provider: SA DOUG DIAS Report Released Date/Time: Apr 21, 2023 09:59 AM Reporting Lab: [facility] [place] [address] Performing Lab: [facility] DIVISION CBC LYMPHOCYTES /100 LEUKOCYTES IN BLOOD BY AUTOMATED COUNT 32 04/21 Specimen Type: BLOOD No comment entered. Ordering Provider: SA DOUG DIAS Report Released Date/Time: Apr 21, 2023 09:59 AM Reporting Lab: [facility] [place] [address] Performing Lab: [facility] DIVISION CBC MONOCYTES/1 00 LEUKOCYTES IN BLOOD BY AUTOMATED COUNT 4 04/21 Specimen Type: BLOOD No comment entered. Ordering Provider: SA DOUG DIAS Report Released Date/Time: Apr 21, 2023 09:59 AM Reporting Lab: [facility] [place] [address] Performing Lab: [facility] DIVISION CBC NEUTROPHILS /100 LEUKOCYTES IN BLOOD BY AUTOMATED COUNT 62 04/21 Specimen Type: BLOOD No comment entered. Ordering Provider: SA DOUG DIAS Report Released Date/Time: Apr 21, 2023 09:59 AM Reporting Lab: [facility] [facility] [address] Performing Lab: [facility] [facility] [phone] [place] [address] DIVISION CBC EOSINOPHILS /100 LEUKOCYTES IN BLOOD BY AUTOMATED COUNT 1 04/21 Specimen Type: BLOOD No comment entered. Ordering Provider: SA DOUG DIAS Report Released Date/Time: Apr 21, 2023 09:59 AM Reporting Lab: [facility] [facility] [phone] Performing Lab: [facility] [facility] [phone] DIVISION CBC BASOPHILS/1 00 LEUKOCYTES IN BLOOD BY AUTOMATED COUNT 0 04/21 Specimen Type: BLOOD No comment entered. Ordering Provider: SA DOUG DIAS Report Released Date/Time: Apr 21, 2023 09:59 AM Reporting Lab: [facility] [facility] [address] Performing Lab: [facility] [facility] [phone] DIVISION CBC LYMPHOCYTES [#/VOLUME] IN BLOOD BY AUTOMATED COUNT 1.96 10*3/u L 0.77 - 4.50 04/21 Specimen Type: BLOOD No comment entered. Ordering Provider: SA DOUG DIAS Report Released Date/Time: Apr 21, 2023 09:59 AM Reporting Lab: [facility] [facility] [address] Performing Lab: [facility] [facility] [phone] DIVISION CBC MONOCYTES [#/VOLUME] IN BLOOD BY AUTOMATED COUNT 0.27 10*3/u L 0.19 - 0.80 04/21 Specimen Type: BLOOD No comment entered. Ordering Provider: SA DOUG DIAS Report Released Date/Time: Apr 21, 2023 09:59 AM Reporting Lab: [facility] [place] [address] Performing Lab: [facility] DIVISION CBC NEUTROPHILS [#/VOLUME] IN BLOOD BY AUTOMATED COUNT 3.86 10*3/u L 2.10 - 8.00 04/21 Specimen Type: BLOOD No comment entered. Ordering Provider: SA DOUG DIAS Report Released Date/Time: Apr 21, 2023 09:59 AM Reporting Lab: [facility] [place] [address] Performing Lab: [facility] DIVISION CBC EOSINOPHILS [#/VOLUME] IN BLOOD BY AUTOMATED COUNT 0.06 10*3/u L 0.00 - 0.60 04/21 Specimen Type: BLOOD No comment entered. Ordering Provider: SA DOUG DIAS Report Released Date/Time: Apr 21, 2023 09:59 AM Reporting Lab: [facility] [place] [address] Performing Lab: [facility] DIVISION CBC BASOPHILS [#/VOLUME] IN BLOOD BY AUTOMATED COUNT 0.02 10*3/u L 0.00 - 0.20 04/21 Specimen Type: BLOOD No comment entered. Ordering Provider: SA DOUG DIAS Report Released Date/Time: Apr 21, 2023 09:59 AM Reporting Lab: [facility] [place] [address] Performing Lab: [facility] DIVISION COMPREHEN SIVE METABOLIC PANEL CREATININE [MASS/VOLUM E] IN SERUM OR PLASMA 0.85 mg/dL 0.7 - 1.3 04/21 Specimen Type: PLASMA Comment: No hemolysis noted. Ordering Provider: SA DOUG DIAS Report Released Date/Time: Apr 21, 2023 09:59 AM Reporting Lab: [facility] [address] [facility] [address] Performing Lab: [facility] [address] [facility] [address] [facility] COMPREHEN SIVE METABOLIC PANEL UREA NITROGEN [MASS/VOLUM E] IN SERUM OR PLASMA 7.2 mg/dL 9.0 - 25.0 04/21 L Specimen Type: PLASMA Comment: No hemolysis noted. Ordering Provider: SA DOUG DIAS Report Released Date/Time: Apr 21, 2023 09:59 AM Reporting Lab: [facility] [address] [facility] [address] Performing Lab: [place] [address] [facility] [address] [facility] COMPREHEN SIVE METABOLIC PANEL GLUCOSE [MASS/VOLUM E] IN SERUM OR PLASMA 104 mg/dL 72 - 99 04/21 H Specimen Type: PLASMA Comment: No hemolysis noted. Ordering Provider: SA DOUG DIAS Report Released Date/Time: Apr 21, 2023 09:59 AM Reporting Lab: [facility] [address] [facility] [address] Performing Lab: [place] [address] [facility] [address] [facility] COMPREHEN SIVE METABOLIC PANEL SODIUM [MOLES/VOLU ME] IN SERUM OR PLASMA 141 meq/L 136 - 145 04/21 Specimen Type: PLASMA Comment: No hemolysis noted. Ordering Provider: SA DOUG DIAS Report Released Date/Time: Apr 21, 2023 09:59 AM Reporting Lab: [place] [address] [facility] [address] Performing Lab: [facility] [address] [facility] [address] [facility] COMPREHEN SIVE METABOLIC PANEL POTASSIUM [MOLES/VOLU ME] IN SERUM OR PLASMA 4.4 meq/L 3.5 - 5 04/21 Specimen Type: PLASMA Comment: No hemolysis noted. Ordering Provider: SA DOUG DIAS Report Released Date/Time: Apr 21, 2023 09:59 AM Reporting Lab: [facility] [address] [facility] [address] Performing Lab: [facility] [address] [facility] [address] [facility] COMPREHEN SIVE METABOLIC PANEL CHLORIDE [MOLES/VOLU ME] IN SERUM OR PLASMA 105 meq/L 98 - 107 04/21 Specimen Type: PLASMA Comment: No hemolysis noted. Ordering Provider: SA DOUG DIAS Report Released Date/Time: Apr 21, 2023 09:59 AM Reporting Lab: [facility] [address] [facility] [address] Performing Lab: [facility] [address] [facility] [address] [facility] COMPREHEN SIVE METABOLIC PANEL CARBON DIOXIDE, TOTAL [MOLES/VOLU ME] IN SERUM OR PLASMA 24 meq/L 22 - 31 04/21 Specimen Type: PLASMA Comment: No hemolysis noted. Ordering Provider: SA DOUG DIAS Report Released Date/Time: Apr 21, 2023 09:59 AM Reporting Lab: [facility] [address] [facility] [address] Performing Lab: [facility] [address] [facility] [address] [facility] COMPREHEN SIVE METABOLIC PANEL CALCIUM [MASS/VOLUM E] IN SERUM OR PLASMA 9.8 mg/dL 8.4 - 10.4 04/21 Specimen Type: PLASMA Comment: No hemolysis noted. Ordering Provider: SA DOUG DIAS Report Released Date/Time: Apr 21, 2023 09:59 AM Reporting Lab: [facility] [address] [facility] [address] Performing Lab: [facility] [address] [facility] [address] [facility] COMPREHEN SIVE METABOLIC PANEL PROTEIN [MASS/VOLUM E] IN SERUM OR PLASMA 8.1 g/dL 6 - 8.6 04/21 Specimen Type: PLASMA Comment: No hemolysis noted. Ordering Provider: SA DOUG DIAS Report Released Date/Time: Apr 21, 2023 09:59 AM Reporting Lab: [place] [address] [place] [phone] Performing Lab: [place] [address] [facility] [address] [facility] COMPREHEN SIVE METABOLIC PANEL ALBUMIN [MASS/VOLUM E] IN SERUM OR PLASMA 4.7 g/dL 3.4 - 5 04/21 Specimen Type: PLASMA Comment: No hemolysis noted. Ordering Provider: SA DOUG DIAS Report Released Date/Time: Apr 21, 2023 09:59 AM Reporting Lab: [place] [address] [place] [phone] Performing Lab: [place] [address] [place] [phone] COMPREHEN SIVE METABOLIC PANEL BILIRUBIN.T OTAL [MASS/VOLUM E] IN SERUM OR PLASMA 0.4 mg/dL 0.2 - 1.2 04/21 Specimen Type: PLASMA Comment: No hemolysis noted. Ordering Provider: SA DOUG DIAS Report Released Date/Time: Apr 21, 2023 09:59 AM Reporting Lab: [facility] [address] [place] [phone] Performing Lab: [place] [address] [facility] [phone] COMPREHEN SIVE METABOLIC PANEL ALKALINE PHOSPHATASE [ENZYMATIC ACTIVITY/VO LUME] IN SERUM OR PLASMA 45 U/L 40 - 150 04/21 Specimen Type: PLASMA Comment: No hemolysis noted. Ordering Provider: SA DOUG DIAS Report Released Date/Time: Apr 21, 2023 09:59 AM Reporting Lab: [address] [place] [address] Performing Lab: [place] [address] [facility] [address] [facility] COMPREHEN SIVE METABOLIC PANEL ASPARTATE AMINOTRANSF ERASE [ENZYMATIC ACTIVITY/VO LUME] IN SERUM OR PLASMA 39 U/L 5 - 34 04/21 H Specimen Type: PLASMA Comment: No hemolysis noted. Ordering Provider: SA DOUG DIAS Report Released Date/Time: Apr 21, 2023 09:59 AM Reporting Lab: [place] [address] [facility] [address] Performing Lab: [address] [address] [facility] COMPREHEN SIVE METABOLIC PANEL ALANINE AMINOTRANSF ERASE [ENZYMATIC ACTIVITY/VO LUME] IN SERUM OR PLASMA 49 U/L 8 - 40 04/21 H Specimen Type: PLASMA Comment: No hemolysis noted. Ordering Provider: SA DOUG DIAS Report Released Date/Time: Apr 21, 2023 09:59 AM Reporting Lab: [address] [address] Performing Lab: [place] [address] [facility] [address] [facility] COMPREHEN SIVE METABOLIC PANEL GLOMERULAR FILTRATION RATE/1.73 SQ M.PREDICTED [VOLUME RATE/AREA] IN SERUM, PLASMA OR BLOOD BY CREATININE- BASED FORMULA (CKD-EPI 2020) 100.7 60 04/21 Specimen Type: PLASMA Comment: No hemolysis noted. Ordering Provider: SA DOUG DIAS Report Released Date/Time: Apr 21, 2023 09:59 AM Reporting Lab: [address] [address] Performing Lab: [address] [address] [facility] URIC ACID URATE [MASS/VOLUM E] IN SERUM OR PLASMA 7.9 mg/dL 3.5 - 7.2 04/21 H Specimen Type: PLASMA Comment: No hemolysis noted. Ordering Provider: SA DOUG DIAS Report Released Date/Time: Apr 21, 2023 09:59 AM Reporting Lab: [facility] [address] [facility] [address] Performing Lab: [facility] [address] [facility] [address] [facility] CRP C REACTIVE PROTEIN [PRESENCE] IN SERUM OR PLASMA 0.1 mg/dL 0 - 0.5 04/21 Specimen Type: PLASMA Comment: No hemolysis noted. Ordering Provider: SA DOUG DIAS Report Released Date/Time: Apr 21, 2023 09:59 AM Reporting Lab: [facility] [address] [facility] [address] Performing Lab: [address] [address] [facility] Chemistry AGAP 11.00 0.00 - 15.00 04/06 N [id number] [facility] Alk Phos 39 U/L 40 - 150 04/06 L [id number] [facility] Chemistry Albumin 4.40 g/dL 3.50 - 5.20 04/06 N [id number] [facility] AST 39 U/L 5 - 34 04/06 H [id number] [facility] Chemistry ALT 47 U/L 5 - 55 04/06 N [id number] [facility] Bilirubin Total 0.5 mg/dL 0.2 - 1.2 04/06 N [id number] [facility] Chemistry BUN/Creat Ratio 11 mg/dL 12 - 20 04/06 L [id number] [facility] Chemistry BUN 9 mg/dL 8 - 26 04/06 N [id number] th [facility] Chemistry Chloride 104 mmol/L 98 - 107 04/06 N [id number] [facility] Chemistry Calcium 9.7 mg/dL 8.4 - 10.2 04/06 N [facility] Creatinine Level 0.80 mg/dL 0.72 - 1.25 04/06 N [facility] Chemistry CO2 26 mmol/L 22 - 29 04/06 N [facility] Chemistry Glucose Lvl 87 mg/dL 74 - 99 04/06 N [facility] Chemistry Potassium Lvl 3.8 mmol/L 3.5 - 5.1 04/06 N [facility] Chemistry Sodium 141 mmol/L 136 - 145 04/06 N [facility] Chemistry Protein Total 7.8 g/dL 6.4 - 8.3 04/06 N [facility] Chemistry PSA Total 1.93 ng/mL 0.05 - 3.89 04/06 N Interpretiv e Data: This assay shows no biotin interferenc e in samples with biotin concentrati ons up to 1200 ng/mL. [id number]-59th [facility] Chemistry Chol/HDL 3 mg/dL 04/06 [facility] Chemistry HDL Cholesterol 64 mg/dL 40 - 59 04/06 H Interpretiv e Data: HDL (HIGH DENSITY LIPOPROTEIN ): ADULTS: Low: < 40 mg/dL High: >/= 60 mg/dL AGES 0 -19: Low: < 40 mg/dL Borderline Low: 40 - 45 mg/dL Acceptable: > 45 mg/dL [facility] Chemistry Cholesterol Total 201 mg/dL 04/06 H Interpretiv e Data: According to the [place] [employer] : AGES 0-19: Desirable: < 170 mg/dL Borderline High: 170-199 mg/dL High Blood Cholesterol : >/= 200 mg/dL ADULTS: Desirable < 200 mg/dL Borderline High: 200-239 mg/dL High Blood Cholesterol : >/= 240 mg/dL [facility] Chemistry LDL 123 mg/dL 100 - 130 04/06 N Interpretiv e Data: AGES 0-19: Desirable: < 110 mg/dL Borderline High: 110-129 mg/dL High: >/= 130 mg/dL ADULTS: Desirable: <100 mg/dL Near/above optimal: 100-130 mg/dL Borderline High: 131-159 mg/dL High: 160-189 mg/dL Very High: 190 mg/dL [facility] Chemistry Triglycerid es 80 mg/dL 7 - 149 04/06 N Interpretiv e Data: AGES 0-9: Desirable: < 75 mg/dL Borderline High: 75-99 mg/dL High: >/= 100 mg/dL AGES 10-19: Desirable: < 90 mg/dL Borderline High: 90-129 mg/dL High: >/= 130 mg/dL ADULTS: Desirable: < 150 mg/dL Borderline High: 150-199 mg/dL High: >/= 240 mg/dL Very High: >/= 500 mg/dL [facility] Chemistry LDL/HDL 2 04/06 [facility] Chemistry eAvg Glucose 120 mg/dL 04/06 [facility] Chemistry Hemoglobin A1c 5.8 % 4.0 - 5.6 04/06 H Interpretiv e Data: Normal: 4.0 - 5.6% Increased Risk: 5.7 - 6.4% Diabetic Range: 6.5% For patients without diabetes, the normal range for the hemoglobin A1c test is between 4% and 5.6%. Hemoglobin A1c levels between 5.7% and 6.4% indicate increased risk of diabetes, and levels of 6.5% or higher indicate diabetes. Because studies have repeatedly shown that out-of-cont rol diabetes results in complicatio ns from the disease, the goal for people with diabetes is a hemoglobin A1c less than 7%. The higher the hemoglobin A1c, the higher the risks of developing complicatio ns related to diabetes. If confirmatio n is needed, consider recalling the patient and ordering Hemoglobin Electrophor esis. [facility] Chemistry eGFR CKD EPI 103 mL/min /1.73_ m2 04/06 Interpretiv e Data: Estimated Glomerular Filtration Rate (eGFR) calculated using the 2020 Chronic Kidney Disease-Epi demiology (CKD-EPI) Collaborati on creatinine equation; units of measure are mL/min/1.73 m2. Results are only valid for adults (>=18 years) whose serum creatinine is in steady state. eGFR calculation s are not valid for patients with acute kidney injury and for patients on dialysis. Creatinine- based estimates of kidney function may also be inaccurate in patients with reduced creatinine generation due to decreased muscle mass (e.g., malnutritio n, severe hypoalbumin emia, sarcopenia, chronic neuromuscul ar disease, amputations , severe heart failure or liver disease) and in patients with increased creatinine generation due to increased muscle mass (e.g., muscle builders, anabolic steroids) or increased dietary intake. CKD is diagnosed based on abnormaliti es of kidney structure or function, present for >3 months, with implication s for health and disease. CKD is classified and staged based on cause, eGFR and albuminuria (quantified as urine albumin to creatinine ratio). An eGFR >60 mL/min/1.73 m2 in the absence of increased urine albumin excretion or structural abnormaliti es does not CKD. eGFR provides only an estimate of measured GFR within +/- 30% for most patients. As mentioned, nutritional status and muscle mass, among many factors, may lead to inaccuracy in the estimate. Consider ordering the creatinine- cystatin C panel if better accuracy is needed for clinical decision-trey chacon. eGFR (mL/min/1.7 3 m2) CKD stage Interpretat ion Normal 60-89 Mild decrease 45-59 Mild to moderate decrease 30-44 Moderate to severe decrease 15-29 Severe decrease <15 Kidney failure [facility] eriberto Vital Signs Combined list of inpatient and outpatient Vital Signs from Department of Defense and Veterans Affairs, ranging from 12 months to all on record, depending upon the facility. Vital Sign Value Date Comments Source Blood Pressure Manual Automatic 08/04/2024 19:11:00 1318H-Ap-X-[facility] Abhilash Mean Arterial Pressure, Calc 110 mm[Hg] 08/04/2024 19:11:00 6248T-Ex-F-375 Abhilash BP Site Left arm 08/04/2024 19:11:00 5483E-Uy-A-375Th Abhilash Respiratory Rate 16 br/min 08/04/2024 19:11:00 6793T-Yb-O-375Th [facility] Peripheral Pulse Rate 87 bpm 08/04/2024 19:11:00 4294O-Fb-J-[facility] Systolic Blood Pressure 167 mm[Hg] 08/04/19 25 19:11:00 9175M-Zg-G-[facility] Diastolic Blood Pressure 82 mm[Hg] 025 19:11:00 1830Q-Au-F-[facility] Blood Pressure Manual Automatic 04/03/2023 18:02:00 1715O-Bs-O-[facility] Systolic Blood Pressure 150 mm[Hg] 04/03/20 23 18:02:00 4394V-Bw-K-375[facility] Diastolic Blood Pressure 86 mm[Hg] 023 18:02:00 9850I-Tf-V-[facility] Mean Arterial Pressure, Calc 107 mm[Hg] 04/03/2023 18:02:00 9354V-Jo-G-375[facility] Peripheral Pulse Rate 83 bpm 04/03/2023 18:02:00 4069U-Mu-G-[facility] BP Site Left arm 04/03/2023 18:02:00 2583N-Po-N-375[facility] Mean Arterial Pressure, Calc 107 mm[Hg] 11/05/2023 13:12:00 8061U-Hm-M-375[facility] Systolic Blood Pressure 151 mm[Hg] 11/05/19 24 13:12:00 2391P-Sn-J-[facility] Diastolic Blood Pressure 85 mm[Hg] 024 13:12:00 6208X-Hr-Y-375[facility] Peripheral Pulse Rate 79 bpm 11/05/2023 13:12:00 0060T-Qi-S-[facility] Blood Pressure Manual Automatic 04/17/2023 18:03:00 4623W-Dx-U-375[facility] BP Site Left arm 04/17/2023 18:03:00 9346C-Ic-Z-[facility] Respiratory Rate 16 br/min 04/17/2023 18:03:00 2696N-Kl-L-375[facility] Systolic Blood Pressure 158 mm[Hg] 04/17/20 23 18:03:00 8119L-Ac-H-375[facility] Diastolic Blood Pressure 91 mm[Hg] 023 18:03:00 3828M-Gw-S-375[facility] Mean Arterial Pressure, Calc 113 mm[Hg] 04/17/2023 18:03:00 5439K-Ao-J-375[facility] Peripheral Pulse Rate 86 bpm 04/17/2023 18:03:00 7596K-Lh-I-375[facility] BP Site Left arm 09/10/2023 20:49:00 0055A-375th MEDGRP-Oneal Mean Arterial Pressure, Calc 94 mm[Hg] 09/10/2023 20:49:00 0055A-375[facility] Peripheral Pulse Rate 83 bpm 09/10/2023 20:49:00 0055A-375[facility] Blood Pressure Manual Automatic 09/10/2023 20:49:00 0055A-375th [facility] Systolic Blood Pressure 126 mm[Hg] 09/10/19 24 20:49:00 0055A-375[facility] Diastolic Blood Pressure 78 mm[Hg] 024 20:49:00 0055A-375th [facility] Peripheral Pulse Rate 88 bpm 08/03/2023 21:26:00 9613P-Ns-K-375Th [facility] Mean Arterial Pressure, Calc 103 mm[Hg] 08/03/2023 21:26:00 9850C-Gs-C-375Th [facility] Systolic Blood Pressure 166 mm[Hg] 08/03/19 24 21:26:00 4536C-Wp-S-375Th [facility] Diastolic Blood Pressure 72 mm[Hg] 024 21:26:00 7378K-Ch-I-375Th [facility] BP Site Left arm 08/03/2023 21:26:00 6946A-Zz-T-375Th [facility] Blood Pressure Manual Automatic 08/03/2023 21:26:00 2940Z-Oj-S-375[facility] Respiratory Rate 16 br/min 08/03/2023 21:26:00 7718D-Ch-S-375Th [facility] SYSTOLIC BLOOD PRESSURE 158 11/08/19 09:16:28 [facility] DIASTOLIC BLOOD PRESSURE 91 025 09:16:28 [facility] PULSE OXIMETRY 96 11/07/2024 09:16:28 [facility] WEIGHT 244.3 11/07/2024 09:16:28 [facility] BMI 32 kg/m2 11/07/2024 09:16:28 [facility] PAIN 7 11/07/2024 09:16:28 [facility] PULSE 98 11/07/2024 09:16:28 [facility] RESPIRATION 86 11/07/2024 09:16:28 [facility] SYSTOLIC BLOOD PRESSURE 163 08/01/19 25 14:10:03 [facility] DIASTOLIC BLOOD PRESSURE 88 025 14:10:03 [facility] PULSE OXIMETRY 97 08/01/2024 14:10:03 [facility] WEIGHT 241 08/01/2024 14:10:03 [facility] BMI 32 kg/m2 08/01/2024 14:10:03 [facility] PAIN 7 08/01/2024 14:10:03 [facility] TEMPERATURE 98.1 08/01/2024 14:10:03 [facility] PULSE 77 08/01/2024 14:10:03 [facility] RESPIRATION 18 08/01/2024 14:10:03 [facility] SYSTOLIC BLOOD PRESSURE 158 04/11/20 24 09:18:00 [facility] DIASTOLIC BLOOD PRESSURE 100 024 09:18:00 [facility] PULSE OXIMETRY 97 04/11/2024 09:18:00 [facility] WEIGHT 256.9 04/11/2024 09:18:00 [facility] BMI 34 kg/m2 04/11/2024 09:18:00 [facility] PAIN 5 04/11/2024 09:18:00 [facility] TEMPERATURE 98.9 04/11/2024 09:18:00 [facility] PULSE 75 04/11/2024 09:18:00 [facility] RESPIRATION 16 04/11/2024 09:18:00 [facility] SYSTOLIC BLOOD PRESSURE 147 02/01/20 24 15:09:44 [facility] DIASTOLIC BLOOD PRESSURE 83 024 15:09:44 [facility] PULSE OXIMETRY 97 02/01/2024 15:09:44 [facility] WEIGHT 260.2 02/01/2024 15:09:44 [facility] BMI 34 kg/m2 02/01/2024 15:09:44 [facility] PAIN 5 02/01/2024 15:09:44 [facility] TEMPERATURE 99.1 02/01/2024 15:09:44 [facility] PULSE 72 02/01/2024 15:09:44 [facility] RESPIRATION 18 02/01/2024 15:09:44 [facility] Encounters Combined list of: 1) Encounters from Department of [facility] Affairs facilities going backup to the last 18 months, not all VA inpatient encounters are included; 2) Encounters from the Department of Defense facilities going backup to 280 months. Location Location Details Encounter Type Encounter Number Reason For Visit Attending Provider ADM Date DC Date Status Disposition Source [facility] [id number] 12/04 DISCHARGED HOME [facility] [place] Medical [facility] INPATIENT [id number] AMADO URBAN 12/05 Inpatient- Still a Patient [facility] Medical [facility] One[facility]N utritio nal Medicin e) [address] [place] [address] Oneal [place] ([facility]Car diologyPr ocedure [facility] ) INPATIENT [id number] aaaa nuc ett NAOMI SHIN 12/06 Inpatient- Still a Patient [address] [place] [address] One[employer] [facility] ([facility]Taras bustos Schedul es) [address] [place] [address] One[employer] [place] ([facility]Sco tt [facility] Fam Res Tm Green) OUTPATIENT [id number] MEDS OLGA SHERWOOD 01/22 Released w/o Limitations [address] [place] [address] One[employer] [facility] ([facility]S cott [facility] Fam Res Tm Green) [address] [place] [address] [employer] ([facility]Sco tt [facility] Fam Res Tm [place]) OUTPATIENT [id number] gout flair up ROLANDO JAIMES Florencio 03/06 Released w/o Limitations [address] [place] [address] One[employer] [place] ([facility]S cott [facility] Fam Res Tm Green) [address] [place] [address] [employer]al [facility] ([facility]Sco tt [facility] Fam Res Tm [place]) OUTPATIENT [id number] joint pain ROLANDO JAIMES Florencio 03/28 Released w/o Limitations [address] [place] [address] Oneal LULARosemarie ([facility]S cott [facility] Fam Res Tm Green) [address] [place] [address] Oneal [place] ([facility]Sco tt [facility] Fam Res Tm Green) TELE CONSULT [id number] Med Order ROLANDO JAIMES Florencio 04/[address] [place] [address] Oneal LULARosemarie ([facility]S cott [facility] Fam Res Tm Green) [address] [place] [address] Oneal [place] [facility]) OUTPATIENT [id number] DON MARINELLI 04/08 Released w/o Limitations [address] [place] [address] One[employer] [place] ([facility]N utritio nal Medicin e) [facility] Medical [facility] Oneal [place] ([facility]Sco tt [facility] Fam Res Tm Green) OUTPATIENT [id number] pain in feet,wr istNimisha IAN D 05/01 Released w/o Limitations [address] [place] [address] Oneal [place] ([facility]S cott [facility] Fam Res Tm Green) [facility] Medical [facility] [employer] ([facility]Sco tt [facility] FAMRES Tm Blue) OUTPATIENT [id number] GOUT/AR THRITIS LUIS ENRIQUE GUPTA 05/19 Released w/o Limitations [address] [place] [address] [employer] ([facility]S cott [facility] FAMRES Tm Blue) [address] [place] [address] [employer] ([facility]Sco tt [facility] Fam Res Tm Green) TELE CONSULT [id number] STEPHANIE Hays I 05/[address] [place] [address] [employer] ([facility]S cott OF Fam Res Tm Green) [address] [place] [address] [employer] ([facility]Sco tt [facility] Fam Res Tm Green)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 [address])([facility] Fam Res Tm Gold) TELE CONSULT [id number] Notes Entered by: Rosemarie HERNANDEZ 29 Nov 2015 0848 ------- ------- ------- ------- -- Med refill (Laboun ty) DWAYNE CORTEZ 11/28 Referred for Appointment [address] [place] [address])(S [facility] Fam Res Tm Gold) [address] [place] [address])([facility] Fam Res Tm Gold) TELE CONSULT [id number] Notes Entered by: Rosemarie HERNANDEZ 11 Dec 2015 1139 ------- ------- ------- ------- -- Rx refill (Laboun ty) CARMINA ARCOS 12/[address] [place] [address])([facility] Fam Res Tm Gold) [address] [place] [address])([facility] Fam Res Tm Gold) TELE CONSULT [id number] Notes Entered by: KALYN RUANO 27 Feb 2016 1515 ------- ------- ------- ------- -- Referra l renewal /Laboun ty/314. [phone] 3/[facility] NOA VÁSQUEZ 02/26 Other Not Elsewhere Classified [address] [place] [address])([facility] Fam Res Tm Gold) [address] [place] [address])(Med ication Refill Clinic) TELE CONSULT [id number] Notes Entered by: DEJAH REYES 12 Mar 2016 1515 ------- ------- ------- ------- -- Med Bridge / [place]ount y / - sgj ASIA HARO 03/[address] [place] [address])([facility]) [address] [place] [address])([facility] Fam Res Tm Gold) OUTPATIENT [id number] F/U for blood pressur e / medicat ions [id number] CALIXTO DE LEON 03/24 Released w/o Limitations [address] [place] [address] Oneal [facility])(S [facility] Fam Res Tm Gold) [address] [place] [address] Oneal [facility])(Sco tt [facility] Res Tm Green) TELE CONSULT [id number] Notes Entered by: ARTURO CAMERON 04 Jun 2016 1505 ------- ------- ------- ------- -- Network Results Pulmona ry Sleep Medicin e 6 DH JENNIFER RICHARDSON 06/[address] [place] [address] Oneal [facility])(S [facility] Res Tm Green) [address] [place] [address] Oneal [facility])(Sco tt [facility] Res Green) TELE CONSULT [id number] Notes Entered by: EVAN COATES 02 Jul 2016 0925 ------- ------- ------- ------- -- Micare medicat ion refRENÉE La 07/02 Referred for Appointment [address] [place] [address] Oneal [facility])([facility] Res Tm Green) [address] [place] [address])(Sco [facility] Res Gold) OUTPATIENT [id number] F/U Blood presure and Lab Results [id number] LAQUITA PHAN 08/14 Released w/o Limitations [address] [place] [address] Oneal [facility])(S [facility] Fam Res Tm Gold) [address] [place] [address] Oneal [facility] TELE CONSULT [id number] Notes Entered by: MADYSON ALEXANDERE P 30 Sep 2016 1610 ------- ------- ------- ------- -- Prescri ption DWAYNE Morris 09/30 Referred for Appointment [address] [place] [address] Oneal [facility])(S [facility] FAMRES Tm Blue) [address] [place] [address])(Sco tt [facility] Fam Res Tm Gold) OUTPATIENT [id number] follow up blood pressur e medicat ion LAQUITA PHAN 10/16 Released w/o Limitations [address] [place] [address] Oneal [facility])(S cott [facility] Fam Res Tm Gold) [address] [place] [address])(Sco tt [facility] Fam Res Tm Gold) TELE CONSULT [id number] Notes Entered by: BRANDAN PIZARRO 12 Nov 2016 0835 ------- ------- ------- ------- -- Network Results Pulmona ry Sleep Medicin e 7 JENNIFER SHI 11/[address] [place] [address])(S cott [facility] Fam Res Tm Gold) [address] [place] [address])(Sco tt [facility] FAMRES Tm Blue) TELE CONSULT [id number] Notes Entered by: KAROLYN BRITO 21 Apr 2017 1447 ------- ------- ------- ------- -- Medicat ion request TIFFANY SOTOMAYOR 04/[address] [place] [address])(S [facility] FAMRES Tm Blue) [address] [place] [address])(Sco tt [facility] Fam Res Tm Green) TELE CONSULT [id number] Notes Entered by: YU LENNON 27 Apr 2017 1042 ------- ------- ------- ------- -- Prescri ptASIA Burrows 04/[address] [place] [address])(S [facility] Fam Res Tm Green) [address] [place] [address])(Sco tt [facility] FAMRES Tm Blue) OUTPATIENT [id number] gout flare, right ankle / ERICA SANCHEZ 05/26 Released w/o Limitations [address] [place] [address])(S [facility] FAMRES Tm Blue) [address] [place] [address] [facility] TELE CONSULT [id number] Notes Entered by: KOSTAS FLORES 10 Jun 2017 0950 ------- ------- ------- ------- -- Med KOSTAS Cruz 06/10 Other Not Elsewhere Classified [address] [place] [address] Oneal [facility])(S cott [facility] FAMinZair Tm Blue) [address] [place] [address] Oneal [facility]Sco tt [facility] FAMRES Tm Blue) OUTPATIENT [id number] swollen right foot ERICA SANCHEZ 06/12 Released w/o Limitations [address] [place] [address] Oneal [facility]S cott [facility] FAMRES Tm Blue) [address] [place] [address] Oneal [facility]) OUTPATIENT [id number] Extreme pain in feet/L hand/wr ist/arm /R hand/kn ee/shou lder [id number] SMITH MALCOLM 07/07 Released w/o Limitations [address] [place] [address] Oneal [facility]S cott [facility] Lumiy Tm Blue) [address] [place] [address] Oneal [facility])(Sco tt [facility] FAMinZair Tm Blue) TELE CONSULT [id number] Notes Entered by: RHONDA ACOSTA 08 Jul 2017 0831 ------- ------- ------- ------- -- Prescri ption issues/ Sotomayor/ /p LOULOU Sanchez 07/08 Referred for Appointment [address] [place] [address] Oneal [facility] Lumiy Tm Blue) [address] [place] [address] Oneal [facility]Sco tt [facility] Lumiy Tm Blue) TELE CONSULT [id number] Notes Entered by: Sai MALCOLM 08 Jul 2017 1302 ------- ------- ------- ------- -- Medicat ion order SMITH MALCOLM 07/[address] [place] [address] Oneal [facility]S [facility] [employer]) [address] [place] [address] Oneal [facility]Sco tt [facility]) TELE CONSULT [id number] Notes Entered by: KALYN RUANO 17 Jul 2017 0821 ------- ------- ------- ------- -- Handica p Aaron quintero Paperwo jose cruz/Gianna francis/[phone] 9/clm LOULOU DODD 07/17 Referred for Appointment [address] [place] [address] Oneal [facility]S [facility]) [address] [place] [address] Oneal [facility]Sco tt [facility]) OUTPATIENT [id number] f/u on gout for hand and foot - [id number] SMITH MALCOLM 09/08 Released w/o Limitations [address] [place] [address] Oneal [facility]) [address] [place] [address] Oneal [facility])(Sco tt [facility]) TELE CONSULT [id number] Notes Entered by: JALIL PICKARD A 22 Dec 2017 1003 ------- ------- ------- ------- -- Med Bridge Request / Bran/ [phone] - RENÉE Renee 12/22 Medication Refill Forwarded [address] [place] [address] Oneal SRI [facility]S [facility] [employer]) [address] [place] [address] Oneal [facility])(Sco tt [facility] [employer]) OUTPATIENT [id number] F/U Labs, Med Renewal , Bilat Feet- R Hand Gout issues ROLANDO LINDA 12/24 Released w/o Limitations [address] [place] [address] Oneal [facility])(S [facility] [employer]) [address] [place] [address] Oneal [facility])([facility]) OUTPATIENT [id number] Notes Entered by: LYNNETTE ARCHIBALD 15 Jan 2018 1228 ------- ------- ------- ------- -- Low Tyramin e Diet CRISTELALYNNETTE S 01/15 Released w/o Limitations [address] [place] [address] Oneal [facility])(N utritio nal Medicin e) [address] [place] [address] Oneal [facility])(Sco tt [facility] Fam Res Tm Green) TELE CONSULT [id number] Notes Entered by: SUJIT LINDA 18 Jan 2018 1034 ------- ------- ------- ------- -- Appt and labs ELIZABETH BIRD 01/18 Referred for Appointment [address] [place] [address] Oneal [facility]S cott [facility] Res Tm Green) [address] [place] [address] Oneal [facility])([facility]) TELE CONSULT [id number] Notes Entered by: Leah MCKEE 03 May 2018 1349 ------- ------- ------- ------- -- Renewal referra l Pulmono logy and DME Cpap once place please give custome r a call DWAYNE CORTEZ 05/03 Referred for Appointment [address] [place] [address] Oneal [facility])(S cott [facility] FAMRES Tm Blue) [address] [place] [address] Oneal [facility])(Sco tt [facility] AM PharmaRES Tm Blue) OUTPATIENT [id number] gout flare up JOSE MILLER 06/24 Released w/o Limitations [address] [place] [address] Oneal [facility])(S cott [facility] FAMRES Tm Blue) [address] [place] [address] Oneal [facility])(Sco tt [facility] FAMRES Tm Blue) TELE CONSULT [id number] Notes Entered by: KURT NATION 04 Jan 2019 1143 ------- ------- ------- ------- -- Med refill/ bran/ WILLIAM Palma 01/04 Referred for Appointment [address] [place] [address] Oneal [facility]S cott [facility] FAMRES Tm Blue) [address] [place] [address] Oneal [facility])(Sco tt [facility] FAMRES Tm Blue) OUTPATIENT [id number] Blood pressur e f/u,[phone] LIANG MICHAEL D 04/04 Released w/o Limitations [address] [place] [address] Oneal [facility]S [facility] Blue) [address] [place] [address] Oneal [facility]Sco tt [facility]) OUTPATIENT [id number] Virtual - L Foot painful swollen -Pt states Gout flare up WESLEY MARTINEZ 01/02 Released w/o Limitations [address] [place] [address] Oneal SRI [facility]S [facility] Blue) [address] [place] [address] Oneal [facility])(Sco tt [facility]) OUTPATIENT [id number] RX EVAL EXAM [phone] IN PERSON APPT ESMER MUNGUIA 02/15 Released w/o Limitations [address] [place] [address] Oneal SRI [facility]S [facility] Blue) [address] [place] [address] Oneal [facility])(Sco tt [facility]) TELE CONSULT [id number] Notes Entered by: EVAN MUNGUIA 28 Feb 2020 1750 ------- ------- ------- ------- -- Lab results and need for appoint LIZA Mcdaniel 02/27 Referred for Appointment [address] [place] [address] Oneal LULARosemarie [facility]S [facility]) [address] [place] [address] Oneal [facility])(Sco tt [facility]) OUTPATIENT [id number] in person appt/DM follow up JANI SANTOS 02/28 Released w/o Limitations [address] [place] [address] Oneal LULARosemarie [facility]S [facility]) [address] [place] [address] Oneal [facility])([facility]) OUTPATIENT [id number] Type 2 diabete s mellitu s without complic ations LYNNETTE ARCHIBALD 03/08 Released w/o Limitations [address] [place] [address] Oneal L[place]AB [facility])(N utritio nal Medicin e) [address] [place] [address] Oneal [facility])(Sco tt Disease Managemen t) TELE CONSULT [id number] Notes Entered by: Rosemarie GLEASON 08 Mar 2020 1548 ------- ------- ------- ------- -- Disease Managem ent FAMILIA GLEASON 03/08 Referred for Appointment [address] [place] [address])(S cott Disease Managem ent) [address] [place] [address])(Sco tt [facility] Managemen t) OUTPATIENT [id number] Notes Entered by: MANDI BOND 29 Mar 2020 1135 ------- ------- ------- ------- -- Diabete s educati on SUSI HOLLAND 03/29 Released w/o Limitations [address] [place] [address])(S cott Disease Managem ent) [address] [place] [address])(Sco tt Disease Managemen t) TELE CONSULT [id number] Notes Entered by: MANDI BOND 06 Apr 2020 1140 ------- ------- ------- ------- -- Diabeti c F/u SUSI HOLLAND 04/06 Released to Self Care [address] [place] [address])(S cott Disease Managem ent) [address] [place] [address])(Sco tt [facility] FAMRES Tm Blue) TELE CONSULT [id number] Notes Entered by: KURT NATION 23 May 2020 1115 ------- ------- ------- ------- -- lab request /sotomayor /[phone] WILLIAM Palma 05/23 Released to Self Care [address] [place] [address])(S cott [facility] FAMRES Tm Blue) [address] [place] [address])(Sco tt [facility] FAMRES Tm Blue) OUTPATIENT [id number] f/u appt/di scuss lab results /in person [phone] JOSE DE JESUS GARCIA 05/30 Released w/o Limitations [address] [place] [address])(S cott [facility] FAMRES Tm Blue) [address] [place] [address] Oneal [facility])(Sco tt [facility] [employer]inZair Tm Blue) TELE CONSULT [id number] Notes Entered by: PILAR TURNER 17 Dec 2020 0905 ------- ------- ------- ------- -- Lab Request /Bran / WILLIAM BOYD 12/17 Released to Self Care [address] [place] [address] Oneal [facility]S cott [facility] AM PharmaRES Tm Blue) [address] [place] [address] Oneal [facility])([facility]) OUTPATIENT [id number] F2F - F/u on diabete s, JOANNA OCAMPO 12/19 Released w/o Limitations [address] [place] [address] Oneal [facility]S [facility] Lumiy Tm Blue) [address] [place] [address] Oneal [facility])(Sco tt [facility] Lumiy Tm Blue) TELE CONSULT [id number] Notes Entered by: HIMANSHU AGARWAL 01 Apr 2021 1024 ------- ------- ------- ------- -- Labs PRATEEK AGARWAL 04/01 Other Not Elsewhere Classified [address] [place] [address] Oneal [facility])(S cott [facility] Lumiy Tm Blue) [address] [place] [address] Oneal [facility])(Sco tt [facility] Lumiy Tm Blue) TELE CONSULT [id number] Notes Entered by: GENEVIEVE PITTMAN 02 Apr 2021 1312 ------- ------- ------- ------- -- F/u DIEGO DUMONT 04/02 Referred for Appointment [address] [place] [address] Oneal [facility]S cott [facility] FAMRES Tm Blue) [address] [place] [address] Oneal [facility])(Sco tt [facility] FAMinZair Tm Blue) OUTPATIENT [id number] 4 Blood Pressur e f/u and Med refills BILL MARRERO 04/11 Released w/o Limitations [address] [place] [address] Oneal [facility]S cott [facility] FAMRES Tm Blue) [address] [place] [address] Oneal [facility])(Sco tt [facility] AM PharmaRES Tm Blue) TELE CONSULT [id number] Notes Entered by: SALOMÓN GERARDO 15 Jan 2022 0736 ------- ------- ------- ------- -- Med Vipul/ Joseph/ CANDIDO MORRISON 01/[address] [place] [address] Oneal [facility]S cott [facility] FAMRES Tm Blue) [address] [place] [address] Oneal [facility])(Sco tt [facility] AM PharmaRES Tm Blue) OUTPATIENT [id number] 2 F2F F/U Blood Pressur e/ Diabete s CALIXTO FRANKLIN 02/26 Released w/o Limitations [address] [place] [address] Oneal [facility])(S cott [facility] AM PharmaRES Tm Blue) [address] [place] [address])(Sco tt [facility] Lumiy Tm Blue) TELE CONSULT [id number] Notes Entered by: PILAR TURNER 15 Aug 2022 0946 ------- ------- ------- ------- -- Sx - Gout flare-u p/Nwoko norma/314 .243.54 39 BERNADETTE GONZALEZ 08/15 Referred for Appointment [address] [place] [address] Oneal [facility]S cott [facility] FAMRES Tm Blue) [address] [place] [address] Oneal [facility])(Sco tt [facility] Fam Res Tm Green) OUTPATIENT [id number] Virtual for gout flare DOMENICO BRADY 08/15 Released w/o Limitations [address] [place] [address] Oneal [facility])(S cott [facility] Fam Res Tm Green) [address] [place] [address] Oneal [facility])(Sco tt [facility] FAMRES Tm Blue) OUTPATIENT [id number] 1 F2F - f/u on BP, Gout, med renewal s, ALCIRA VASQUEZ 09/19 Released w/o Limitations [facility] Oneal FIERRO ([facility]S jared [facility] FAMRES Tm Blue) [facility] PSYTX W PT 60 MINUTES 49059-2.65 [id number] Diagnos is: ICD-10- CM F43.9 Reactio n to severe stress, unspeci fied AXEL,WAR TIERRA G III 07/23 [facility] OFFICE O/P EST LOW 20 MIN 31438-3.65 [id number] Diagnos is: ICD-10- CM L29.8 Other pruritu s YVONNE OLIVAS 08/10 [facility] OFFICE O/P EST MOD 30 MIN 13254-7.65 [id number] Diagnos is: ICD-10- CM M54.51 Vertebr ogenic low back pain RADHA BRANES 08/11 [facility] PSYTX W PT 60 MINUTES 79098-0.65 [id number] 149 Diagnos is: ICD-10- CM Z91.49 Oth persona l history of psychol ogical trauma, NEC AXEL,WAR TIERRA G III 08/13 [facility] OFFICE O/P EST MOD 30 MIN 01670-7.65 [id number] Diagnos is: ICD-10- CM G43.B0 Ophthal moplegi c migrain e, not intract able REBECCAVELeah CRUZ 08/17 [facility] PSYTX W PT 30 MINUTES 19031-3.65 [id number] Diagnos is: ICD-10- CM G89.4 Chronic pain syndrom e Rosemarie CASTELLON 08/19 [facility] OFFICE O/P EST HI 40 MIN 49363-6.65 [id number] Diagnos is: ICD-10- CM G43.101 Migrain e with aura, not intract able, with status migrain ALLEY Rush Kaylee 09/10 [facility] SENSORY INTEGRATIO N 06651-4.65 [id number] 226 Diagnos is: ICD-10- CM H54.3 Unquali fied visual loss, both eyes JORJE LOPEZ 09/10 [facility] PSYTX W PT 60 MINUTES 43857-5.65 [id number] 382 Diagnos is: ICD-10- CM F43.9 Reactio n to severe stress, unspeci fied AXEL,WAR TIERRA G III 10/07 [facility] IVNTJ GRP EA ADDL 10230-3.65 [id number] 516 Diagnos is: ICD-10- CM G89.4 Chronic pain syndrom e Rosemarie CASTELLON 10/26 [facility] IVNTJ GRP EA ADDL 51260-5.65 [id number] Diagnos is: ICD-10- CM G89.4 Chronic pain syndrom e Rosemarie CASTELLON 11/02 [facility] IVNTJ GRP EA ADDL 33741-4.65 [id number] 492 Diagnos is: ICD-10- CM G89.4 Chronic pain syndrom e Rosemarie CASTELLON 11/09 [facility] PSYTX W PT 60 MINUTES 58808-1.65 [id number] 492 Diagnos is: ICD-10- CM Z91.49 Oth persona l history of psychol ogical trauma, NEC AXEL,WAR TIERRA G III 11/11 [facility] IVNTJ GRP EA ADDL 42120-7.65 [id number] 464 Diagnos is: ICD-10- CM G89.4 Chronic pain syndrom e CASTELLONRosemarie RITTANY J 11/16 [facility] IVNTJ GRP EA ADDL 32237-6.65 [id number] Diagnos is: ICD-10- CM G89.4 Chronic pain syndrom e Rosemarie CASTELLON RITTANY J 11/23 [facility] IVNTJ GRP EA ADDL 26157-7.65 [id number] 203 Diagnos is: ICD-10- CM G89.4 Chronic pain syndrom e Rosemarie CASTELLON RITTANY J 12/07 [facility] IVNT GRP EA ADDL 12451-5.65 [id number] 147 Diagnos is: ICD-10- CM G89.4 Chronic pain syndrom e Rosemarie CASTELLON RITTANY J 12/14 [facility] IVNT GRP EA ADDL 72316-2.65 [id number] 111 Diagnos is: ICD-10- CM G89.4 Chronic pain syndrom e CASTELLONRosemarie RITTANY J 12/21 [facility] SENSORY INTEGRATIO N 02942-1.65 [id number] Diagnos is: ICD-10- CM H54.3 Unquali fied visual loss, both eyes JORJE LOPEZ 12/30 [facility] PSYTX W PT 60 MINUTES 07213-2.65 [id number] 947 Diagnos is: ICD-10- CM F43.9 Reactio n to severe stress, unspeci fied AXEL,KAYLIN Ceja III 12/30 [facility] OFF/OP EST MAY X REQ PHY/QHP 07462-9.65 [id number] Diagnos is: ICD-10- CM 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 OFFICE O/P EST MOD 30 MIN 50202-7.65 [id number] Diagnos is: ICD-10- CM G89.4 Chronic pain syndrom e MIRANDA GONZALES 01/31 [facility] PSYTX W PT 60 MINUTES 43666-2.65 [id number] 978 Diagnos is: ICD-10- CM F43.9 Reactio n to severe stress, unspeci fied KAYLIN REYNA III 02/03 [facility] OFFICE O/P EST LOW 20 MIN 74805-4.65 [id number] Diagnos is: ICD-10- CM G43.B0 Ophthal moplegi c migrain e, not intract able Leah AKINS 02/07 [facility] Outpatient Encounter 01124-3.65 [id number] 02/08 [facility] Outpatient Encounter 09928-9.65 [id number] KAYLIN REYNA III 03/03 [facility] PSYTX W PT 60 MINUTES 18570-3.65 [id number] 414 Diagnos is: ICD-10- CM F43.9 Reactio n to severe stress, unspeci fied KAYLIN REYNA III 03/17 [facility] OFFICE O/P EST MOD 30 MIN 22278-9.65 [id number] Diagnos is: ICD-10- CM M1A.9XX 0 Chronic gout, unspeci fied, without tophus (tophi) FAMILIA MUJICABHA 04/11 [facility] N 5A-375 th [facility] eriberto Outpatient [id number] АННА N 07/29 Discharge Disposition: Home or Self Care 5A-3 [facility] [facility] Outpatient Encounter [id number] [id number] 08/01 [facility] O/P EST MOD 30 MIN 82266-1.65 [id number] Diagnos is: ICD-10- CM G89.4 Chronic pain syndrom e MIRANDA GONZALES 08/01 [facility] 61C-Af- C-375 [facility] eriberto Clinic [id number] Encount er for screeni ng for maligna nt neoplas m of colon,P roteinu sabiha, unspeci fied,Es sential (primar y) hyperte nsion,E ncounte r for general adult medical examina tion without abnorma l finding s АННА N 08/04 Discharge Disposition: Home or Self Care 30C-A f-C-375 [facility] 6129C-Af- C-375 [facility] eriberto Between Visit [id number] 08/04 Discharge Disposition: Home or Self Care 30C-A f-C-375 [facility] DIVISION FAMILY PSYTX W/PT 50 MIN 36511-8.65 [id number] Diagnos is: ICD-10- CM Z63.0 Problem s in relatio nship with spouse or partner MURTAZA MARTINEZ 08/08 [facility] [place] 1 21431-6.65 [id number] 421 Diagnos is: ICD-10- CM G43.E19 Chronic migrain e with aura, intract able, without stat migr SOULEYMANE RODRIGUEZ Sai 08/08 [facility] OFFICE O/P EST MOD 30 MIN 18479-0.65 [id number] Diagnos is: ICD-10- CM L20.89 Other atopic dermati tis ANU PATEL 08/31 [facility] Outpatient Encounter 83367-3.65 [id number] 09/20 [facility] 6130C-Af- C-375Th Medgrp-Sc eriberto Between Visit [id number] Type 2 diabete s mellitu s without complic ations 10/04 Discharge Disposition: Home or Self Care 6130C-A f-C-375 [facility] 6130C-Af- C-375Th Medgrp-Sc eriberto Between Visit [id number] 10/19 Discharge Disposition: Home or Self Care 6130C-A f-C-375 Th Medgrp- Oneal [facility] OFFICE O/P EST MOD 30 MIN 96963-8.65 [id number] [phone] Diagnos is: ICD-10- CM M1A.9XX 0 Chronic gout, unspeci fied, without tophus (tophi) NATASHA SANTIAGO 11/07 [facility] Outpatient Encounter [phone] [id number] 11/09 [facility] Procedures Combined list of: 1) Procedures from [facility] facilities going back up to thelast 18 months, not all [facility] non-surgical procedures are included; 2) All procedures from the [facility] Defense facilities. Procedure Procedure Type Code Date Perfomer Comments Robin e Colorectal cancer screening; colonoscopy on individual not meeting criteria for high risk [address] [place] [address] [facility] jared Colonoscopy, flexible, proximal to splenic flexure; diagnostic, with or without collection of specimen(s) by brushing or washing, with or without colon decompre ion (separate procedure) Colonoscopy, flexible, proximal to splenic flexure; diagnostic, with or without collection of specimen(s) by brushing or washing, with or without colon decompression (separate procedure) [address] [place] [address]-[facility] Foot examination performed (includes examination through visual inspection, sensory exam with monofilament, and pulse exam report when any of the three components are completed) Foot examination performed (includes examination through visual inspection, sensory exam with monofilament, and pulse exam report when any of the three components are completed) [id number] [address] [place] [address]-S jared DESTRUCTION (EG, LASER SURGERY, ELECTROSURGERY, CRYOSURGERY, CHEMOSURGERY, SURGICAL CURETTEMENT), PREMALIGNANT LESIONS (EG, ACTINIC KERATOSES); FIRST LESION 004 DoD WAIVER SERVICES; NOT OTHERWISE SPECIFIED (NOS) 023 [facility] TELE ASSESS & MGT SRV PROV QUAL NONPHYS HLTH CARE PRO TO EST PAT,PARENT,GUARD NOT ORIG REL ASSESS & MGT SRV PROV W/IN PREV 7 DAYS NOR LEAD ASSESS & MGT SRV/PX W/IN NXT 24 HR/SOON APT;5-10 MIN MED DIS 023 DoD FOOT EXAMINATION PERFORMED (INCLUDES EXAMINATION THROUGH VISUAL INSPECTION, SENSORY EXAM WITH MONOFILAMENT, AND PULSE EXAM - REPORT WHEN ANY OF THE 3 COMPONENTS ARE COMPLETED) (DM) 022 DoD TELE ASSESS & MGT SRV PROV QUAL NONPHYS HLTH CARE PRO TO EST PAT,PARENT,GUARD NOT ORIG REL ASSESS & MGT SRV PROV W/IN PREV 7 DAYS NOR LEAD ASSESS & MGT SRV/PX W/IN NXT 24 HR/SOON APT;5-10 MIN MED DIS 06/14/2 021 DoD WAIVER SERVICES; NOT OTHERWISE SPECIFIED (NOS) DoD TELE ASSESS & MGT SRV PROV QUAL NONPHYS HLTH CARE PRO TO EST PAT,PARENT,GUARD NOT ORIG REL ASSESS & MGT SRV PROV W/IN PREV 7 DAYS NOR LEAD ASSESS & MGT SRV/PX W/IN NXT 24 HR/SOON APT;5-10 MIN MED DIS DoD DISEASE MANAGEMENT PROGRAM, FOLLOW-UP/REASSESSMENT DoD DISEASE MANAGEMENT PROGRAM; INITIAL ASSESSMENT AND INITIATION OF THE PROGRAM DoD WAIVER SERVICES; NOT OTHERWISE SPECIFIED (NOS) DoD WAIVER SERVICES; NOT OTHERWISE SPECIFIED (NOS) DoD TELE ASSESS & MGT SRV PROV QUAL NONPHYS HLTH CARE PRO TO EST PAT,PARENT,GUARD NOT ORIG REL ASSESS & MGT SRV PROV W/IN PREV 7 DAYS NOR LEAD ASSESS & MGT SRV/PX W/IN NXT 24 HR/SOON APT;5-10 MIN MED DIS 018 [facility] MEDICAL NUTRITION THERAPY; INITIAL ASSESSMENT AND INTERVENTION, INDIVIDUAL, [id number]-[id number] WITH THE PATIENT, EACH 15 MINUTES [facility] INJECTION, METHYLPREDNISOLONE SODIUM SUCCINATE, UP TO 125 MG [facility] DISEASE MANAGEMENT PROGRAM, FOLLOW-UP/REASSESSMENT 017 DoD TELE ASSESS & MGT SRV PROV QUAL NONPHYS HLTH CARE PRO TO EST PAT,PARENT,GUARD NOT ORIG REL ASSESS & MGT SRV PROV W/IN PREV 7 DAYS NOR LEAD ASSESS & MGT SRV/PX W/IN NXT 24 HR/SOON APT;5-10 MIN MED DIS 016 DoD TELEPHONE CALLS BY A REGISTERED NURSE TO A DISEASE MANAGEMENT PROGRAM MEMBER FOR MONITORING PURPOSES; PER MONTH 016 [facility] ONLINE ASSESS &MANAG SERV PROVIDE,A QUAL NONPHYS HCP TO AN ESTABLISHED PAT/GUARDIAN,NOT ORIGINAT FRM RELAT ASSESS &MANAG SERV PROVIDE W/IN THE PREV 7 DAYS,USE THE [employer] 016 [facility] COLORECTAL CANCER SCREENING; COLONOSCOPY ON INDIVIDUAL NOT MEETING CRITERIA FOR HIGH RISK 015 DoD TELE ASSESS & MGT SRV PROV QUAL NONPHYS HLTH CARE PRO TO EST PAT,PARENT,GUARD NOT ORIG REL ASSESS & MGT SRV PROV W/IN PREV 7 DAYS NOR LEAD ASSESS & MGT SRV/PX W/IN NXT 24 HR/SOON APT;5-10 MIN MED DIS 015 DoD TELE ASSESS & MGT SRV PROV QUAL NONPHYS HLTH CARE PRO TO EST PAT,PARENT,GUARD NOT ORIG REL ASSESS & MGT SRV PROV W/IN PREV 7 DAYS NOR LEAD ASSESS & MGT SRV/PX W/IN NXT 24 HR/SOON APT;5-10 MIN MED DIS 015 DoD TELE ASSESS & MGT SRV PROV QUAL NONPHYS HLTH CARE PRO TO EST PAT,PARENT,GUARD NOT ORIG REL ASSESS & MGT SRV PROV W/IN PREV 7 DAYS NOR LEAD ASSESS & MGT SRV/PX W/IN NXT 24 HR/SOON APT;5-10 MIN MED DIS 015 DoD TELE ASSESS & MGT SRV PROV QUAL NONPHYS HLTH CARE PRO TO EST PAT,PARENT,GUARD NOT ORIG REL ASSESS & MGT SRV PROV W/IN PREV 7 DAYS NOR LEAD ASSESS & MGT SRV/PX W/IN NXT 24 HR/SOON APT;5-10 MIN MED DIS 015 DoD FUNDUS PHOTOGRAPHY WITH INTERPRETATION AND REPORT 015 DoD FITTING OF SPECTACLES, EXCEPT FOR APHAKIA; MONOFOCAL 014 DoD TELE ASSESS & MGT SRV PROV QUAL NONPHYS HLTH CARE PRO TO EST PAT,PARENT,GUARD NOT ORIG REL ASSESS & MGT SRV PROV W/IN PREV 7 DAYS NOR LEAD ASSESS & MGT SRV/PX W/IN NXT 24 HR/SOON APT;5-10 MIN MED DIS 014 DoD FITTING OF SPECTACLES, EXCEPT FOR APHAKIA; BIFOCAL 012 DoD TELE ASSESS & MGT SRV PROV QUAL NONPHYS HLTH CARE PRO TO EST PAT,PARENT,GUARD NOT ORIG REL ASSESS & MGT SRV PROV W/IN PREV 7 DAYS NOR LEAD ASSESS & MGT SRV/PX W/IN NXT 24 HR/SOON APT;5-10 MIN MED DIS 012 DoD TELE ASSESS & MGT SRV PROV QUAL NONPHYS HLTH CARE PRO TO EST PAT,PARENT,GUARD NOT ORIG REL ASSESS & MGT SRV PROV W/IN PREV 7 DAYS NOR LEAD ASSESS & MGT SRV/PX W/IN NXT 24 HR/SOON APT;5-10 MIN MED DIS 012 DoD TELE ASSESS & MGT SRV PROV QUAL NONPHYS HLTH CARE PRO TO EST PAT,PARENT,GUARD NOT ORIG REL ASSESS & MGT SRV PROV W/IN PREV 7 DAYS NOR LEAD ASSESS & MGT SRV/PX W/IN NXT 24H/SOON APT; 11-20 MIN MED DIS 011 DoD TELE ASSESS & MGT SRV PROV QUAL NONPHYS HLTH CARE PRO TO EST PAT,PARENT,GUARD NOT ORIG REL ASSESS & MGT SRV PROV W/IN PREV 7 DAYS NOR LEAD ASSESS & MGT SRV/PX W/IN NXT 24 HR/SOON APT;5-10 MIN MED DIS 011 DoD TELE ASSESS & MGT SRV PROV QUAL NONPHYS HLTH CARE PRO TO EST PAT,PARENT,GUARD NOT ORIG REL ASSESS & MGT SRV PROV W/IN PREV 7 DAYS NOR LEAD ASSESS & MGT SRV/PX W/IN NXT 24 HR/SOON APT;5-10 MIN MED DIS 010 DoD CHIROPRACTIC MANIPULATIVE TREATMENT (CMT); SPINAL, 3-4 REGIONS 008 DoD CHIROPRACTIC MANIPULATIVE TREATMENT (CMT); SPINAL, 3-4 REGIONS 008 [facility] CHIROPRACTIC MANIPULATIVE TREATMENT (CMT); SPINAL, 1-2 REGIONS 008 DoD APPLICATION OF A MODALITY TO 1 OR MORE AREAS; HOT OR COLD PACKS 008 [facility] CHIROPRACTIC MANIPULATIVE TREATMENT (CMT); SPINAL, 3-4 REGIONS 008 DoD APPLICATION OF A MODALITY TO 1 OR MORE AREAS; ELECTRICAL STIMULATION (UNATTENDED) 008 [facility] CHIROPRACTIC MANIPULATIVE TREATMENT (CMT); SPINAL, 3-4 REGIONS 008 DoD INFECT AGNT ANTIGEN DETECT,IMMUNOASSAY TECH,(EG,ENZYME IMMUNOASSAY [EIA],ENZYME-LINKED IMMUNOSORBENT ASSAY [TIMMY],IMMUNOCHEMILUMI NOMETRIC ASSAY [IMCA]),QUAL/SEMIQUANT; SING STEP METH,NOS,EA ORGANISM 008 DoD CHIROPRACTIC MANIPULATIVE TREATMENT (CMT); SPINAL, 1-2 REGIONS DoD CHIROPRACTIC MANIPULATIVE TREATMENT (CMT); SPINAL, 1-2 REGIONS DoD CHIROPRACTIC MANIPULATIVE TREATMENT (CMT); SPINAL, 1-2 REGIONS DoD CHIROPRACTIC MANIPULATIVE TREATMENT (CMT); SPINAL, 3-4 REGIONS DoD APPLICATION OF A MODALITY TO 1 OR MORE AREAS; ELECTRICAL STIMULATION (UNATTENDED) DoD CHIROPRACTIC MANIPULATIVE TREATMENT (CMT); SPINAL, 1-2 REGIONS DoD FITTING OF SPECTACLES, EXCEPT FOR APHAKIA; MONOFOCAL DoD APPLICATION OF A MODALITY TO 1 OR MORE AREAS; ELECTRICAL STIMULATION (UNATTENDED) DoD VISUAL FIELD EXAMINATION, UNI OR BILATERAL, WITH MEDICAL DIAGNOSTIC EVAL; INTERMEDIATE EXAM (EG, AT LEAST 2 ISOPTERS ON GOLDMANN PERIMETER, OR SEMIQUANT, AUTO SUPRATHRESHOLD SCREEN PROGRAM, GAMBINO DoD APPLICATION OF A MODALITY TO 1 OR MORE AREAS; HOT OR COLD PACKS DoD CHIROPRACTIC MANIPULATIVE TREATMENT (CMT); SPINAL, 1-2 REGIONS DoD APPLICATION OF A MODALITY TO 1 OR MORE AREAS; ELECTRICAL STIMULATION (UNATTENDED) DoD APPLICATION OF A MODALITY TO 1 OR MORE AREAS; ELECTRICAL STIMULATION (UNATTENDED) 007 DoD CHIROPRACTIC MANIPULATIVE TREATMENT (CMT); SPINAL, 1-2 REGIONS DoD APPLICATION OF A MODALITY TO 1 OR MORE AREAS; ELECTRICAL STIMULATION (UNATTENDED) 007 DoD APPLICATION OF A MODALITY TO 1 OR MORE AREAS; ELECTRICAL STIMULATION (UNATTENDED) 007 DoD APPLICATION OF A MODALITY TO 1 OR MORE AREAS; ELECTRICAL STIMULATION (UNATTENDED) 007 DoD APPLICATION OF A MODALITY TO 1 OR MORE AREAS; ELECTRICAL STIMULATION (UNATTENDED) 007 DoD APPLICATION OF A MODALITY TO 1 OR MORE AREAS; ELECTRICAL STIMULATION (UNATTENDED) 007 DoD CHIROPRACTIC MANIPULATIVE TREATMENT (CMT); SPINAL, 1-2 REGIONS DoD MEDICAL NUTRITION THERAPY; GROUP (2 OR MORE INDIVIDUAL(S)), EACH MINUTES [facility] INJECTION, ADENOSINE FOR THERAPEUTIC USE, 6 MG (NOT TO BE USED TO REPORT ANY ADENOSINE PHOSPHATE COMPOUNDS, INSTEAD USE [id number]) [facility] INJECTION, KETOROLAC TROMETHAMINE, PER 15 MG [facility] OTHER CARDIOVASCULAR STRESS TEST [facility] DIAGNOSTIC ULTRASOUND OF HEART [facility] CARDIOVASCULAR STRESS TEST USING MAXIMAL OR SUBMAXIMAL TREADMILL OR BICYCLE EXERCISE,CONTINUOUS ELECTROCARDIOGRAPHIC MONITORING,AND/OR PHARMACOLOGICAL STRESS;W SUPERVISION,INTERPRETAT ION AND REPORT [facility] INFUSION, NORMAL SALINE SOLUTION, 250 CC [facility] Modalities Heat Hot Packs Modalities Heat Hot Packs [phone] KITTY MIRANDA Modalities Electrical Stimulation Unattended Modalities Electrical Stimulation Unattended [phone] KITTY MIRANDA Modalities Heat Hot Packs Modalities Heat Hot Packs 81215 007 KITTY MIRANDA Chiropractic Manip Treatmt (CMT) Spinal One To Two Regions Chiropractic Manip Treatmt (CMT) Spinal One To Two Regions [id number] Supervised Injection Intramuscular Supervised Injection Intramuscular [id number] LUIS ENRIQUE GUPTA [facility] Injection, ketorolac tromethamine, per 15 mg 005 LUIS ENRIQUE GUPTA Cardiac Stre Test, Phys. Supervision, Interp. And Report Cardiac Stress Test, Phys. Supervision, Interp. And Report [id number] NAOMI SHIN [facility] Non-Physician Phone Call To Patient/Provider Brief (5-10min) Non-Physician Phone Call To Patient/Provider Brief (5-10min) [id number] [phone] ELIZABETH BIRD [facility] Medical Nutrition Therapy Initial A e ment, Intervention Medical Nutrition Therapy Initial Assessment, Intervention [id number] [id number] LYNNETTE ARCHIBALD [facility] Injection, methylprednisolone sodium succinate, up to 125 mg 018 SMITH MALCOLM One dose, IM, given by CHEVY Cortez [facility] Disease management program, follow-up/deb e ment 017 ERICA BUTLER [facility] Non-Physician Phone Call To Patient/Provider Brief (5-10min) Non-Physician Phone Call To Patient/Provider Brief (5-10min) [phone] DWAYNE CORTEZ [facility] Telephone calls by a registered nurse to a disease management program member for monitoring purposes; per month 016 KAUSHAL GARCÍA [facility] Non-Physician Phone Call To Patient/Provider Brief (5-10min) Non-Physician Phone Call To Patient/Provider Brief (5-10min) [phone] KAUSHAL GARCÍA [facility] Internet Med Svc Qual Nonphys Healthcare Prof Estab Patient Internet Med Svc Qual Nonphys Healthcare Prof Estab Patient [phone] NAUN TEJEDA [facility] Colorectal cancer screening; colonoscopy on individual not meeting criteria for high risk 015 JOSE MCMILLAN [facility] Complete Colonoscopy Complete Colonoscopy [id number] JOSE MCMILLAN [facility] Non-Physician Phone Call To Patient/Provider Brief (5-10min) Non-Physician Phone Call To Patient/Provider Brief (5-10min) [phone] VEENA RICHEY [facility] Non-Physician Phone Call To Patient/Provider Brief (5-10min) Non-Physician Phone Call To Patient/Provider Brief (5-10min) [phone] DWAYNE CORTEZ [facility] Non-Physician Phone Call To Patient/Provider Brief (5-10min) Non-Physician Phone Call To Patient/Provider Brief (5-10min) [phone] RENÉE TEJADA [facility] Non-Physician Phone Call To Patient/Provider Brief (5-10min) Non-Physician Phone Call To Patient/Provider Brief (5-10min) [phone] DWAYNE CORTEZ Fundus Photography Fundus Photography [id number] 25/08 015 MAKENNA MCMILLAN [facility] Scanning Computerized Ophthalmic Diagnostic Imaging Retina Scanning Computerized Ophthalmic Diagnostic Imaging Retina 48725 MAKENNA MCMILLAN Ophthalmological Prior Patient Start Intermediate Level Care Ophthalmological Prior Patient Start Intermediate Level Care [phone] MAKENNA MCMILLAN [employer] Services Fitting Monofocals (Not For Aphakia) [employer] [facility] Fitting Monofocals (Not For Aphakia) [phone] MAKENNA MCMILLAN Determination Of Refractive State Determination Of Refractive State [phone] MAKENNA MCMILLAN Ophthalmological Prior Patient Start Comprehensive Care Ophthalmological Prior Patient Start Comprehensive Care [phone] MAKENNA MCMILLAN Non-Physician Phone Call To Patient/Provider Brief (5-10min) Non-Physician Phone Call To Patient/Provider Brief (5-10min) [phone] ELIZABETH BIRD Non-Physician Phone Call To Patient/Provider Brief (5-10min) Non-Physician Phone Call To Patient/Provider Brief (5-10min) [phone] WENDY GRAY [employer] [facility] Fitting Bifocals (Not For Aphakia) [employer] Fitting Bifocals (Not For Aphakia) [phone] EMELY GONZALEZ Determination Of Refractive State Determination Of Refractive State [phone] EMELY GONZALEZ Ophthalmological Prior Patient Start Comprehensive Care Ophthalmological Prior Patient Start Comprehensive Care [phone] EMELY GONZALEZ Non-Physician Phone Call To Patient/Provider Brief (5-10min) Non-Physician Phone Call To Patient/Provider Brief (5-10min) [phone] MATTHEW OZUNA Non-Physician Phone Call To Pt/Provider Intermed (11-20 min) Non-Physician Phone Call To Pt/Provider Intermed (11-20 min) [phone] RENÉE TEJADA Non-Physician Phone Call To Patient/Provider Brief (5-10min) Non-Physician Phone Call To Patient/Provider Brief (5-10min) [phone] MATTHEW OZUNA Non-Physician Phone Call To Patient/Provider Brief (5-10min) Non-Physician Phone Call To Patient/Provider Brief (5-10min) [phone] ALESHIA VILLARREAL Chiropractic Manip Treatmt (CMT) Spinal Three To Four Region Chiropractic Manip Treatmt (CMT) Spinal Three To Four Region 01603 008 KITTY MIRANDA Modalities Electrical Stimulation Unattended Modalities Electrical Stimulation Unattended 57739 008 KITTY MIRANDA Modalities Heat Hot Packs Modalities Heat Hot Packs 52864 008 KITTY MIRANDA Chiropractic Manip Treatmt (CMT) Spinal Three To Four Region Chiropractic Manip Treatmt (CMT) Spinal Three To Four Region 94123 008 KITTY MIRANDA Modalities Electrical Stimulation Unattended Modalities Electrical Stimulation Unattended 75926 008 KITTY MIRANDA Modalities Heat Hot Packs Modalities Heat Hot Packs 33381 008 KITTY MIRANDA Chiropractic Manip Treatmt (CMT) Spinal One To Two Regions Chiropractic Manip Treatmt (CMT) Spinal One To Two Regions 67186 008 KITTY MIRANDA Modalities Electrical Stimulation Unattended Modalities Electrical Stimulation Unattended 55311 008 KITTY MIRANDA Modalities Heat Hot Packs Modalities Heat Hot Packs 60940 008 KITTY MIRANDA Modalities Electrical Stimulation Unattended Modalities Electrical Stimulation Unattended 22115 008 KITTY MIRANDA Modalities Heat Hot Packs Modalities Heat Hot Packs 97933 008 KITTY MIRANDA Chiropractic Manip Treatmt (CMT) Spinal Three To Four Region Chiropractic Manip Treatmt (CMT) Spinal Three To Four Region 29637 008 KITTY MIRANDA Modalities Electrical Stimulation Unattended Modalities Electrical Stimulation Unattended 88831 008 KITTY MIRANDA Modalities Heat Hot Packs Modalities Heat Hot Packs 00852 008 KITTY MIRANDA Modalities Electrical Stimulation Unattended Modalities Electrical Stimulation Unattended 88161 008 KITTY MIRANDA Modalities Heat Hot Packs Modalities Heat Hot Packs 52375 008 KITTY MIRANDA Chiropractic Manip Treatmt (CMT) Spinal Three To Four Region Chiropractic Manip Treatmt (CMT) Spinal Three To Four Region 96268 008 KITTY MIRANDA Serum Enzyme Immunoa ay Streptococcal Antigen Serum Enzyme Immunoassay Streptococcal Antigen 14245 008 SARAH RIBERA Chiropractic Manip Treatmt (CMT) Spinal One To Two Regions Chiropractic Manip Treatmt (CMT) Spinal One To Two Regions 93383 007 KITTY MIRANDA Chiropractic Manip Treatmt (CMT) Spinal One To Two Regions Chiropractic Manip Treatmt (CMT) Spinal One To Two Regions 97301 007 KITTY MIRANDA Modalities Electrical Stimulation Unattended Modalities Electrical Stimulation Unattended 10897 007 KITTY MIRANDA Modalities Heat Hot Packs Modalities Heat Hot Packs 66027 007 KITTY MIRANDA Chiropractic Manip Treatmt (CMT) Spinal One To Two Regions Chiropractic Manip Treatmt (CMT) Spinal One To Two Regions 17858 007 KITTY MIRANDA Modalities Electrical Stimulation Unattended Modalities Electrical Stimulation Unattended 98424 007 KITTY MIRANDA Modalities Heat Hot Packs Modalities Heat Hot Packs 78384 007 KITTY MIRANDA Chiropractic Manip Treatmt (CMT) Spinal Three To Four Region Chiropractic Manip Treatmt (CMT) Spinal Three To Four Region 31300 007 KITTY MIRANDA Modalities Electrical Stimulation Unattended Modalities Electrical Stimulation Unattended 33694 007 KITTY MIRANDA Modalities Heat Hot Packs Modalities Heat Hot Packs 34193 007 KITTY MIRANDA Modalities Electrical Stimulation Unattended Modalities Electrical Stimulation Unattended 43577 007 KITTY MIRANDA Modalities Heat Hot Packs Modalities Heat Hot Packs 39069 007 KITTY MIRANDA Medical Nutrition Therapy Group (2 or More Individual(s)) Medical Nutrition Therapy Group (2 or More Individual(s)) 30972 007 MARKY SHERIDAN Chiropractic Manip Treatmt (CMT) Spinal One To Two Regions Chiropractic Manip Treatmt (CMT) Spinal One To Two Regions 46750 007 KITTY MIRANDA Modalities Electrical Stimulation Unattended Modalities Electrical Stimulation Unattended 98559 007 KITTY MIRANDA Modalities Heat Hot Packs Modalities Heat Hot Packs 02483 007 KITTY MIRANDA Visual [place]acheco Test Intermediate Examination Visual [place] Test Intermediate Examination 90737 007 MICHAEL TROY Ophthalmological Prior Patient Start Comprehensive Care Ophthalmological Prior Patient Start Comprehensive Care 17859 007 MICHAEL TROY [employer] [facility] Fitting Monofocals (Not For Aphakia) [employer] [facility] Fitting Monofocals (Not For Aphakia) 36870 007 MICHAEL TROY Determination Of Refractive State Determination Of Refractive State 23925 007 MICHAEL TROY Modalities Electrical Stimulation Unattended Modalities Electrical Stimulation Unattended 85721 007 KITTY MIRANDA Modalities Heat Hot Packs Modalities Heat Hot Packs 45460 007 KITTY MIRANDA Ophthalmological New Patient Start Comprehensive Care Ophthalmological New Patient Start Comprehensive Care 30669 007 MICHAEL TROY Visual [place] Test Intermediate Examination Visual [place] Test Intermediate Examination 86566 007 MICHAEL TRYO Modalities Electrical Stimulation Unattended Modalities Electrical Stimulation Unattended 12808 007 KITTY MIRANDA Modalities Heat Hot Packs Modalities Heat Hot Packs 49875 007 KITTY MIRANDA Chiropractic Manip Treatmt (CMT) Spinal One To Two Regions Chiropractic Manip Treatmt (CMT) Spinal One To Two Regions 53386 007 KITTY MIRANDA Modalities Electrical Stimulation Unattended Modalities Electrical Stimulation Unattended 86734 007 KITTY MIRANDA Modalities Heat Hot Packs Modalities Heat Hot Packs 72786 007 KITTY MIRANDA Modalities Electrical Stimulation Unattended Modalities Electrical Stimulation Unattended 01757 007 KITTY MIRANDA Modalities Heat Hot Packs Modalities Heat Hot Packs 65544 007 KITTY MIRANDA Modalities Electrical Stimulation Unattended Modalities Electrical Stimulation Unattended 18645 007 KITTY MIRANDA Modalities Heat Hot Packs Modalities Heat Hot Packs 12431 007 KITTY MIRANDA Chiropractic Manip Treatmt (CMT) Spinal One To Two Regions Chiropractic Manip Treatmt (CMT) Spinal One To Two Regions 13825 007 KITTY MIRANDA Modalities Electrical Stimulation Unattended Modalities Electrical Stimulation Unattended 32216 007 KITTY MIRANDA Modalities Heat Hot Packs Modalities Heat Hot Packs 27954 007 KITTY MIRANDA Modalities Electrical Stimulation Unattended Modalities Electrical Stimulation Unattended 24467 007 KITTY MIRANDA Modalities Heat Hot Packs Modalities Heat Hot Packs 69088 007 KITTY MIRANDA Modalities Electrical Stimulation Unattended Modalities Electrical Stimulation Unattended 09539 007 KITTY MIRANDA Modalities Heat Hot Packs Modalities Heat Hot Packs 70134 007 KITTY MIRANDA Modalities Electrical Stimulation Unattended Modalities Electrical Stimulation Unattended 84901 007 KITTY MIRANDA Medical Nutrition Therapy Group (2 or More Individual(s)) Medical Nutrition Therapy Group (2 or More Individual(s)) 49074 LYNNETTE ARCHIBALD S [facility] Waiver services; not otherwise specified (NOS) CRISTELALYNNETTE MATTHEWS S [facility] Disease management program, follow-up/debSUSI Okeefe [facility] Non-Physician Phone Call To Patient/Provider Brief (5-10min) Non-Physician Phone Call To Patient/Provider Brief (5-10min) 70616 WILLIAM BOYD [facility] Disease management program; initial a e ment and initiation of the program SUSI HOLLAND 180 min spent face to faced on education [facility] Preventive Medicine Physical Foot Examination Performed Preventive Medicine Physical Foot Examination Performed CALIXTO FRANKLIN [facility] Social History Combined list of available smoking, tobacco, and other social history from Department of Defense and Veterans Affairs facilities. Social History Type Response Date Comment [facility] e Tobacco smoking status NHIS VA-TOBACCO NEVER USED 02/01/2024 [facility] History of tobacco use NE-TOBACCO NEVER USED [facility] History of tobacco use LIFETIME NON-SMOKER 10/01/2022 [facility] Sex Representation Male (finding) 08/28/2022 Un known Organization Tobacco Never-cigarette user Cigarette use:. Never-other tobacco user (not cigarettes) Other Tobacco use:. [facility] Sexual Orientation [facility] Gender identity [facility] This section is an empty social history section. [facility] Assessment and Plan Combined list of future care activities from Department of Defense and Veterans Affairs facilities (e.g., assessment and plan notes, appointments, orders, and referrals). Additional future care activities may be listed in the Plan of Care section. Result Assessment and Plan Date Source Assessment and Plan Extracted from:Title : [facility]- well adult Author: WILLIAM CARTY MD Date: 08/04/24 1. W ell adult P reventative medicine visit with no emergent concerns. Recommendations listed below: ---- CARDIOVASCULAR RISK ASSESSMENT: -Hypertension screening: performed; BP n ot at goal p er J NC-8 g uidelines ---- VACCINES: - Advised annual flu vaccine - Advised Tdap if age 65; booster q10 yr - Advised COVID-19 vaccine ----- METABOLIC: - L ipid screening: U TD - D M screening: UTD [_] ADA recommendation for annual screening in adults with BMI > 25 with one or more?risk factor for T2DM ( HTN, HLD, h/o CVD, h/o PCOS, FMHx) o r age 35-70 with BMI >25 co use ---- CANCER SCREENING: - C olon Cancer Screening: D UE DIETS: -Mediterranean: Discussed that the Mediterranean diet consists of a diet high in fruits, vegetables, whole grains, etc. Mediterranean diet has been associated with decreased incidence of stroke and CVD. Handout was provided on the Mediterranean diet for patient to review at home. ----- FOLLOW UP: - Annually 2. H TN - Hypertension Chronic. Not controlled. States worsen over last few weeks. No checked often. Reports angioedema?with EDWARD-inhib. Plan: - STOP EDWARD d/t angioedema - Start amlodipine 10mg and losartan 25mg QD - Check BP BID for 2 weeks. Call clinic with results and can adjust meds if n eeded. Have room to increase Losartan - f/u in 1-2 months 3. S creening for malignant neoplasm of colon done Last done in 2019. reports polyps and due in 5 years. DUE Plan: - Refer to GI for colonoscopy Ordered: Referral Request 2.0 - DoD 4. M icroalbuminuria elevated. repeat in 3-6 months. Orders: amLODIPine(amLODIPine 10 mg oral tablet), 1 tab(s), Oral, Daily, # 90 tab(s), 0 total refill(s), Maintenance, Pharmacy: [facility] [Not filled] losartan(losartan 25 mg oral tablet), 1 tab(s), Oral, Daily, for blood pressure, # 60 tab(s), 0 total refill(s), Maintenance, Pharmacy: [facility] [Not filled] Capt Raj (), [facility] Manager Credit PGY-[address] [place] [address] Operations [facility] [place] Addendum by JOANNA ELLIS MD on August 05, 2024 16:44:50 CHAIR MECHANIC I certify that I was present for case discussion in the Family Medicine preceptor room at the time of this encounter. I have reviewed the note and agree with the findings, assessment, and plan except as I have documented below. Follow up as listed. All labs/imaging/consults to be followed by the ordering provider. Maj Cole Rowe) Family Medicine Physician [facility] [place] Extracted from:Title: FMR- Gout/Nexus Author: WILLIAM CARTY MD Date: 11/05/23 1. G out Chronic. Improved. Plan: - continue allopurinol 300mg Daily and indomethacin 50mg as needed - provided patient with NExus letter and uploaded to chart William Carty DO PGY-1 Manager Credit [facility] [place] Addendum by LEONA ARECHIGA MD on November 06, 2023 09:09:34 CDT I certify that I was present for case discussion in the Family Medicine preceptor room at the time of this encounter. I have reviewed the note and agree with the findings, assessment, and plan except as I have documented below. Follow up as listed. All labs/imaging/consults to be followed by the ordering provider. - Pt with elevated BP at this visit, spoke with resident who will follow up Leona Arechiga MD, [employer], [employer], Staff Physician Extracted from:Title: FMR- Gout Author: WILLIAM CARTY MD Date: 09/10/23 1. G out Chronic gout. uric acid 7.4 Plan: - Increase allopurinol from 100mg to 300mg - Per ACR guidelines, recommending to Check HLAB- 5801 for sensitivity to allopurinol. Likelihood low since has been on in past and is currently on it but no documentation on file stating it has been checked. - recheck Uric Acid level in 5wks - F/u in 6 weeks Ordered: allopurinol(allopurinol 300 mg oral tablet), 1 tab(s), Oral, Daily, # 90 tab(s), 0 total refill(s), Maintenance, 1 tab(s) Oral Daily, Pharmacy: [id number] [External Rx] Uric Acid Level William Carty DO PGY-1 Manager Credit [facility] [address]/[place], [place] Addendum by ALLEN MOLINA MD on September 12, 2023 16:01:52 CHAIR MECHANIC I was present and available in the family medicine clinic to discuss the patient's care during the time of the appointment. I agree with the resident's assessment and plan as documented. Allen Molina MD, Faculty, [employer], VOL, Attending Physician Extracted from:Title: FMR- DM, Piriformis, CHRISTA Author: WILLIAM CARTY MD Date: 08/03/23 1. D iabetes mellitus Chronic. Controlled. Last A1c in 04/27, under goal <7. Plan: - refill metformin - repeat A1c in 1 year Ordered: metFORMIN(metFORMIN 500 mg oral tablet), 1 tab(s), Oral, Daily, for diabetes, # 90 tab(s), 3 total refill(s), Maintenance, 1 tab(s) Oral Daily,Instr:for diabetes, Pharmacy: [facility] [Not filled] 2. D epression Controlled. Pt follows with [facility]. Denies SI/HI Plan: - refill amitriptyline 3months - continue f/u with [facility] - f/u in 3 months Ordered: amitriptyline(amitriptyline 50 mg oral tablet), 1 tab(s), Oral, every day at bedtime, take one full pill night, # 90 tab(s), 0 total refill(s), Maintenance, 1 tab(s) Oral every day at bedtime,Instr:take one full pill night, Pharmacy: [facility] [Not filled] 3. E levated blood pressure On 3 medications, remains uncontrolled. May be due to pain vs CHRISTA. Normal Cr/GFR. Plan: - continue Metoprolol 50mg and Amlodipine-Benazepril 10-40mg - Recommend pt f/u Pulm for CPAP settings - consider starting Aldactone at next visit due to elevated pressure, will first see if controlled after CPAP setting adjusted. Will need to monitor K+ with bmp - Cannot be on thiazide 2/2 Gout 4. G out Chronic. 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 Not on prophylaxis medication. Plan: - start allopurinol 100mg PO daily, may increase to 200mg (2 x 100mg tabs) after 1 week. - check uric acid 1 week before next vist - f/u in 1 month Ordered: allopurinol(allopurinol 100 mg oral tablet), 1 tab(s), Oral, Daily, Take 1 tab daily for one week. After one week take 2tabs daily., # 90 tab(s), 0 total refill(s), Maintenance, 1 tab(s) Oral Daily,Instr:Take 1 tab daily for one week. After one week take 2tabs daily., Pharmacy: [facility] [N Uric Acid Level 5. H yperlipidemia Chronic. Labs show worsening LDL but stopped due to rec from bump grader operator. Did not find studies that suggest atorvastatin to worsen gout via uric acid levels Plan: - recommend pt restart his atorvastatin 6. O SA - Obstructive sleep apnea Chronic. Not seen pulm since diagnosis many years ago. Ran out of filters Plan: - referral to pulm for CHRISTA - Will w ork on NEXUS letter for patient Ordered: Referral Request 2.0 7. P iriformis syndrome Acute on Chronic. L hip/buttock. + straight leg test, TTP piriformis muscle, Plan: - Tylenol for pain, take with indomethacin - Continue PT - continue home stretches 8. S pondylosis Chronic pain since service. Lumbar XR from 04/27 s howing spondylosis and discogenic changes at L4 and L5. Plan: - Tylenol with indomethacin for pain - Will w ork on NEXUS letter for patient Capt William GardnerDO valeria PGY-1 Manager Credit [facility] [address] [place] [facility], [place] Addendum by LEONA ARECHIGA MD on August 04, 2023 09:11:01 CHAIR MECHANIC I certify that I was present for case discussion in the Family Medicine preceptor room at the time of this encounter. I have reviewed the note and agree with the findings, assessment, and plan except as I have documented below. Follow up as listed. All labs/imaging/consults to be followed by the ordering provider. Leona Arechiga MD, [facility], [facility], Staff Physician - Discussed with resident proper formatting of plan for DM/HTN/depression/anxiety to be completed at next visit. Extracted from:Title: Ambulatory Patient Education Author: LAVERNE VARELA LCSW Date: 05/18/23 Extracted from:Title: Ambulatory Patient Education Author: LAVERNE VARELA LCSW Date: 05/07/23 Mental and Behavioral Health Chronic Pain, Adult Chronic pain is a type of pain that lasts or keeps coming back for at least 3 6 months. You may have headaches, pain in the abdomen, or pain in other areas of the body. Chronic pain may be related to an illness, such as fibromyalgia or complex regional pain syndrome. Chronic pain may also be related to an injury or a health condition. Sometimes, the cause of chronic pain is not known. Chronic pain can make it hard for you to do daily activities. If not treated, chronic pain can lead to anxiety and depression. Treatment depends on the cause and severity of your pain. You may need to work with a pain specialist to come up with a treatment plan. The plan may include medicine, counseling, and physical therapy. Many people benefit from a combination of two or more types of treatment to control their pain. Follow these instructions at home: Medicines Take hfqq-xgp-[id number] and prescription medicines only as told by your health care provider. Ask your health care provider if the medicine prescribed to you: Requires you to avoid driving or using machinery. Can cause constipation. You may need to take these actions to prevent or treat constipation: Drink enough fluid to keep your urine pale yellow. Take jcuc-oxa-tnarxzg or prescription medicines. Eat foods that are high in fiber, such as beans, whole grains, and fresh fruits and vegetables. Limit foods that are high in fat and processed sugars, such as fried or sweet foods. Treatment plan Follow your treatment plan as told by your health care provider. This may include: Gentle, regular exercise. Eating a healthy diet that includes foods such as vegetables, fruits, fish, and lean meats. Cognitive or behavioral therapy that changes the way you think or act in response to the pain. This may help improve how you feel. Working with a physical therapist. Meditation, yoga, acupuncture, or massage therapy. Aroma, color, light, or sound therapy. Local electrical stimulation. The electrical pulses help to relieve pain by temporarily stopping the nerve impulses that cause you to feel pain. Injections. These deliver numbing or pain-relieving medicines into the spine or the area of pain. Lifestyle Ask your health care provider whether you should keep a pain diary. Your health care provider will tell you what information to write in the diary. This may include when you have pain, what the pain feels like, and how medicines and other behaviors or treatments help to reduce the pain. Consider talking with a mental health care provider about how to manage chronic pain. Consider joining a chronic pain support group. Try to control or lower your stress levels. Talk with your health care provider about ways to do this. General instructions Learn as much as you can about how to manage your chronic pain. Ask your health care provider if an intensive pain rehabilitation program or a chronic pain specialist would be helpful. Check your pain level as told by your health care provider. Ask your health care provider if you should use a pain scale. It is up to you to get the results of any tests that were done. Ask your health care provider, or the department that is doing the tests, when your results will be ready. Keep all follow-up visits as told by your health care provider. This is important. Contact a health care provider if: Your pain gets worse, or you have new pain. You have trouble sleeping. You have trouble doing your normal activities. Your pain is not controlled with treatment. You have side effects from pain medicine. You feel weak. You notice any other changes that show that your condition is getting worse. Get help right away if: You lose feeling or have numbness in your body. You lose control of bowel or bladder function. Your pain suddenly gets much worse. You develop shaking or chills. You develop confusion. You develop chest pain. You have trouble breathing or shortness of breath. You pass out. You have thoughts about hurting yourself or others. If you ever feel like you may hurt yourself or others, or have thoughts about taking your own life, get help right away. Go to your nearest emergency department or: Call your local emergency services (586 in the [place] Call a suicide crisis helpline, such as the National Suicide Prevention Lifeline at or 031 in the [place] This is open 24 hours a day in the [place] Text the Crisis Text Line at 101755 (in the [place] Summary Chronic pain is a type of pain that lasts or keeps coming back for at least 3 6 months. Chronic pain may be related to an illness, injury, or other health condition. Sometimes, the cause of chronic pain is not known. Treatment depends on the cause and severity of your pain. Many people benefit from a combination of two or more types of treatment to control their pain. Follow your treatment plan as told by your health care provider. This information is not intended to replace advice given to you by your health care provider. Make sure you discuss any questions you have with your health care provider. Document Revised: 01/15/2022 Document Reviewed: 03/08/2020 [employer] Patient Education 2021 [employer] Extracted from:Title: FMR-Back/Depression Author: WILLIAM CARTY MD Date: 04/17/23 1. S pondylosis 57y/o with PMHx HTN, gout, Obesity, and DM presenting to clinic for his severe back/hip pain. Reviewed XR s howing Spondylosis and discogenic changes L4-L5. Pt stating R side starting to be painful after starting PT. Plan: - D iscussed C ontinuing PT 2x weekly and home s tretching a nd m uscle strengthening. Mentioned that this is the best method for helping spondylosis but will take time - C ontinue Tylenol for pain, take with indomethacin - amitriptyline primarily for depression, b ut may help with nerve pain as well - no indication for injections or surgery at this time - f/u in the next 2-4months p rn or sooner if symptoms worsening such as developing hematuria, severe wt loss, or saddle anesthesia 2. D epression Recent dx, has seen [facility] and started on 30 day trial of amitriptyline a t last visit. No SE with med. Overall mood improved since last visit. Denies SI/SA/HI. PHQ9- 17, GAD7- 14 Plan: - pt has f/u with [facility] - will continue to implement strategies and develop goals - refill amitriptyline - If pt develops SI/HI or has a plan, pt was instructed to call 911 or go to nearest ER - f/u prn Ordered: amitriptyline(amitriptyline 50 mg oral tablet), 1 tab(s), Oral, every day at bedtime, take one full pill night, # 90 tab(s), 0 total refill(s), Maintenance, 1 tab(s) Oral every day at bedtime,Instr:take one full pill night, Pharmacy: [facility] [Not filled] 3. D yslipidemia associated with type II diabetes mellitus Chronic. Restarted statin therapy. Pt recent labs not at goal of LDL below 100. Plan: - continue with atorvastatin 40mg - recheck labs in 6-8wks 4. E ssential hypertension Chronic on medications. Elevated today with repeat. Likely 2/2 to pain Plan: - due to time constraints, pt stated he would like to schedule apt to address problem in next 2-4wk - continue current medications Capt William Carty, DO PGY-1 Manager Credit [facility] [address] [place], [place] Addendum by FROILAN FRANK DO on April 20, 2023 09:26:36 CDT I certify that I was physically present with the resident and patient. I have discussed the diagnosis and treatment plan with the resident [id number]. I have reviewed the note and concur with the findings, assessment, and plan. Follow up as listed. All labs/imaging/consults to be followed by the ordering provider. Capt Izaiah, [facility], Staff Physician Extracted from:Title: Ambulatory Patient Education Author: LAVERNE VARELA LCSW Date: 04/06/23 Mental and Behavioral Health Managing Stress, Adult Feeling a certain amount of stress is normal. Stress helps our body and mind get ready to deal with the demands of life. Stress hormones can motivate you to do well at work and meet your responsibilities. However severe or long-lasting (chronic) stress can affect your mental and physical health. Chronic stress puts you at higher risk for anxiety, depression, and other health problems like digestive problems, muscle aches, heart disease, high blood pressure, and stroke. What are the causes? Common causes of stress include: Demands from work, such as deadlines, feeling overworked, or having long hours. Pressures at home, such as money issues, disagreements with a spouse, or parenting issues. Pressures from major life changes, such as divorce, moving, loss of a loved one, or chronic illness. You may be at higher risk for stress-related problems if you do not get enough sleep, are in poor health, do not have emotional support, or have a mental health disorder like anxiety or depression. How to recognize stress Stress can make you: Have trouble sleeping. Feel sad, anxious, irritable, or overwhelmed. Lose your appetite. Overeat or want to eat unhealthy foods. Want to use drugs or alcohol. Stress can also cause physical symptoms, such as: Sore, tense muscles, especially in the shoulders and neck. Headaches. Trouble breathing. A faster heart rate. Stomach pain, nausea, or vomiting. Diarrhea or constipation. Trouble concentrating. Follow these instructions at home: Lifestyle Identify the source of your stress and your reaction to it. See a therapist who can help you change your reactions. When there are stressful events: Talk about it with family, friends, or co-workers. Try to think realistically about stressful events and not ignore them or overreact. Try to find the positives in a stressful situation and not focus on the negatives. Cut back on responsibilities at work and home, if possible. Ask for help from friends or family members if you need it. Find ways to cope with stress, such as: Meditation. Deep breathing. Yoga or sirena chi. Progressive muscle relaxation. Doing art, playing music, or reading. Making time for fun activities. Spending time with family and friends. Get support from family, friends, or spiritual resources. Eating and drinking Eat a healthy diet. This includes: Eating foods that are high in fiber, such as beans, whole grains, and fresh fruits and vegetables. Limiting foods that are high in fat and processed sugars, such as fried and sweet foods. Do not skip meals or overeat. Drink enough fluid to keep your urine pale yellow. Alcohol use Do not drink alcohol if: Your health care provider tells you not to drink. You are , may be , or are planning to become . Drinking alcohol is a way some people try to ease their stress. This can be dangerous, so if you drink alcohol: Limit how much you use to: 0 1 drink a day for women. 0 2 drinks a day for men. Be aware of how much alcohol is in your drink. In the [place] one drink equals one 12 oz bottle of beer (355 mL), one 5 oz glass of wine (148 mL), or one 1 oz glass of hard liquor (44 mL). Activity Include 30 minutes of exercise in your daily schedule. Exercise is a good stress metal forger's assistant. Include time in your day for an activity that you find relaxing. Try taking a walk, going on a bike ride, reading a book, or listening to music. Schedule your time in a way that lowers stress, and keep a consistent schedule. Prioritize what is most important to get done. General instructions Get enough sleep. Try to go to sleep and get up at about the same time every day. Take hjoc-acs-rgflmov and prescription medicines only as told by your health care provider. Do not use any products that contain nicotine or tobacco, such as cigarettes, e-cigarettes, and chewing tobacco. If you need help quitting, ask your health care provider. Do not use drugs or smoke to cope with stress. Keep all follow-up visits as told by your health care provider. This is important. Where to find support Talk with your health care provider about stress management or finding a support group. Find a therapist to work with you on your stress management techniques. Contact a health care provider if: Your stress symptoms get worse. You are unable to manage your stress at home. You are struggling to stop using drugs or alcohol. Get help right away if: You may be a danger to yourself or others. You have any thoughts of or suicide. If you ever feel like you may hurt yourself or others, or have thoughts about taking your own life, get help right away. You can go to your nearest emergency department or call: Your local emergency services (911 in the [place] A suicide crisis helpline, such as the National Suicide Prevention Lifeline at . This is open 24 hours a day. Summary Feeling a certain amount of stress is normal, but severe or long-lasting (chronic) stress can affect your mental and physical health. Chronic stress can put you at higher risk for anxiety, depression, and other health problems like digestive problems, muscle aches, heart disease, high blood pressure, and stroke. You may be at higher risk for stress-related problems if you do not get enough sleep, are in poor health, lack emotional support, or have a mental health disorder like anxiety or depression. Identify the source of your stress and your reaction to it. Try talking about stressful events with family, friends, or co-workers, finding a coping method, or getting support from spiritual resources. If you need more help, talk with your health care provider about finding a support group or a mental health therapist. This information is not intended to replace advice given to you by your health care provider. Make sure you discuss any questions you have with your health care provider. Document Revised: 08/30/2021 Document Reviewed: 01/18/2020 [employer] Patient Education 2021 [employer] Extracted from:Title: FMR- Piriformis/Depression Author: WILLIAM CARTY MD Date: 04/03/23 1. L eft-sided piriformis syndrome 57y/o M presents with pain for the past 3 months in L hip/buttock. + straight leg test, TTP piriformis muscle, sits on wallet in L back pocket. Plan: - advised to stop placing wallet in back pocket - recommend PT referral t o help with stretching muscle and strengthening - Given website to RX workouts for back/hip - Tylenol for pain, take with indomethacin Labs ordered ahead for pt's annual wellness visit in 2wks Refill Indomethacin for pt gout Ordered: acetaminophen(acetaminophen 325 mg oral tablet), 1 tab(s), Oral, every 4 hr, PRN pain or fever, X 30 days, # 50 tab(s), 0 total refill(s), Acute, 05/03/2023, 1 tab(s) Oral every 4 hr,x30 days,PRN:pain or fever, Pharmacy: [facility] [Not filled] XR Spine Lumbosacral 2 or 3 Views Referral Request 2.0 2. L umbago with sciatica, left side Pt has had chronic back pain, worsening in past few months. TTP back with hypertonicity. Noted to have xrays done while in due to accidents while on job, no recent imaging. Plan: - as mentioned above, may take Tylenol with indomethacin for pain - order xray of lumbosacral spine - PT referral sent - amitriptyline primarily for depression, see below, but may help with nerve pain as well Ordered: acetaminophen(acetaminophen 325 mg oral tablet), 1 tab(s), Oral, every 4 hr, PRN pain or fever, X 30 days, # 50 tab(s), 0 total refill(s), Acute, 05/03/2023, 1 tab(s) Oral every 4 hr,x30 days,PRN:pain or fever, Pharmacy: [facility] [Not filled] XR Spine Lumbosacral 2 or 3 Views Referral Request 2.0 3. D epression Pt stated he had been feeling down and even had SI a couple times due to the pain and his socioeconomic situation, no plan. In clinic denies SI/SA/HI. GAD7- 9 PHQ9-11 Plan: - due to pt thoughts of suicide and blackbox warning of SSRI's r egarding increase of SI. - will instead rx amitriptyline for depression and benefit of treating neuropathic pain - will start with 25mg daily for 7days and then will continue on with 50mg daily - [facility] recommended for pt, pt agreeable and will schedule with them - If pt develops SI/HI or has a plan, pt was instructed to call 911 or go to nearest ER Ordered: amitriptyline(amitriptyline 50 mg oral tablet), 1 tab(s), Oral, every day at bedtime, Take one half a pill nightly for 1week, then take one full pill nightly, # 30 tab(s), 0 total refill(s), Maintenance, 1 tab(s) Oral every day at bedtime,Instr:Take one half a pill nightly for 1week, then take one... [ 4. A llergic rhinitis Chronic. Normally well controlled, but pt has not had money to buy OTC allergy meds. Symptoms of runny nose, postnasal drip, cough, watery eyes. Plan: - ordered FLonase, instructed pt on how to use properly. Use BID - ordered Zyrtec at night daily. Ordered: fluticasone nasal(Flonase 50 mcg/inh nasal spray), 50 mcg, Nostril-Both, BID, # 16 g, 5 total refill(s), Maintenance, 50 mcg Nostril-Both BID, Pharmacy: [facility] [Not filled] cetirizine(ZyrTEC 10 mg oral tablet), 1 tab(s), Oral, Daily, PRN allergy symptoms, # 90 tab(s), 3 total refill(s), Maintenance, 1 tab(s) Oral Daily,PRN:allergy symptoms, Pharmacy: [facility] [Not filled] Orders: indomethacin(indomethacin 50 mg oral capsule), 1 cap(s), Oral, TID, PRN pain (moderate), with food or milk, # 270 cap(s), 0 total refill(s), Maintenance, 1 cap(s) Oral TID,PRN:pain (moderate),Instr:with food or milk, Pharmacy: [facility] [Not filled] Comprehensive Metabolic Panel Hemoglobin A1c Lipid Panel Prostate Specific Antigen Capt William Carty DO PGY-1 Manager Credit [facility] [address] [place], [place] Addendum by CHUY HANSON DO on April 06, 2023 10:51:45 CDT I certify that I was physically present with the resident and patient. I have discussed the diagnosis and treatment plan with the resident [id number]. I have reviewed the note and concur with the findings, assessment, and plan. Follow up as listed. All labs/imaging/consults to be followed by the ordering provider. Chuy Hanson DO, , [facility], Staff Physician 12/13/2024 [id number] [facility] Assessment and Plan Extracted from:Title : [facility]- well adult Author: WILLIAM CARTY MD Date: 08/04/24 1. W ell adult P reventative medicine visit with no emergent concerns. Recommendations listed below: ---- CARDIOVASCULAR RISK ASSESSMENT: -Hypertension screening: performed; BP n ot at goal p er J NC-8 g uidelines ---- VACCINES: - Advised annual flu vaccine - Advised Tdap if age 65; booster q10 yr - Advised COVID-19 vaccine ----- METABOLIC: - L ipid screening: U TD - D M screening: UTD [_] ADA recommendation for annual screening in adults with BMI > 25 with one or more?risk factor for T2DM ( HTN, HLD, h/o CVD, h/o PCOS, FMHx) o r age 35-70 with BMI >25 co use ---- CANCER SCREENING: - Taras tristan Cancer Screening: D UE DIETS: -Mediterranean: Discussed that the Mediterranean diet consists of a diet high in fruits, vegetables, whole grains, etc. Mediterranean diet has been associated with decreased incidence of stroke and CVD. Handout was provided on the Mediterranean diet for patient to review at home. ----- FOLLOW UP: - Annually 2. H TN - Hypertension Chronic. Not controlled. States worsen over last few weeks. No checked often. Reports angioedema?with EDWARD-inhib. Plan: - STOP EDWARD d/t angioedema - Start amlodipine 10mg and losartan 25mg QD - Check BP BID for 2 weeks. Call clinic with results and can adjust meds if n eeded. Have room to increase Losartan - f/u in 1-2 months 3. S creening for malignant neoplasm of colon done Last done in 2019. reports polyps and due in 5 years. DUE Plan: - Refer to GI for colonoscopy Ordered: Referral Request 2.0 - DoD 4. M icroalbuminuria elevated. repeat in 3-6 months. Orders: amLODIPine(amLODIPine 10 mg oral tablet), 1 tab(s), Oral, Daily, # 90 tab(s), 0 total refill(s), Maintenance, Pharmacy: [facility] [Not filled] losartan(losartan 25 mg oral tablet), 1 tab(s), Oral, Daily, for blood pressure, # 60 tab(s), 0 total refill(s), Maintenance, Pharmacy: [facility] [Not filled] Capt Cole Anthony), [facility] Manager Credit PGY-[address] [place] [address] [facility] Medicine Residency [place], [place] Addendum by JOANNA ELLIS MD on August 05, 2024 16:44:50 CHAIR MECHANIC I certify that I was present for case discussion in the Family Medicine preceptor room at the time of this encounter. I have reviewed the note and agree with the findings, assessment, and plan except as I have documented below. Follow up as listed. All labs/imaging/consults to be followed by the ordering provider. Maj Cole Rowe) Family Medicine Physician [facility] [place] Extracted from:Title: FMR- Gout/Nexus Author: WILLIAM CARTY MD Date: 11/05/23 1. G out Chronic. Improved. Plan: - continue allopurinol 300mg Daily and indomethacin 50mg as needed - provided patient with NExus letter and uploaded to chart Capt William Carty DO PGY-1 Manager Credit [facility] 375OS/[facility] [place] Addendum by LEONA ARECHIGA MD on November 06, 2023 09:09:34 CDT I certify that I was present for case discussion in the Family Medicine preceptor room at the time of this encounter. I have reviewed the note and agree with the findings, assessment, and plan except as I have documented below. Follow up as listed. All labs/imaging/consults to be followed by the ordering provider. - Pt with elevated BP at this visit, spoke with resident who will follow up Leona Arechiga MD, , [facility], Staff Physician Extracted from:Title: FMR- Gout Author: WILLIAM CARTY MD Date: 09/10/23 1. G out Chronic gout. uric acid 7.4 Plan: - Increase allopurinol from 100mg to 300mg - Per ACR guidelines, recommending to Check HLAB- 5801 for sensitivity to allopurinol. Likelihood low since has been on in past and is currently on it but no documentation on file stating it has been checked. - recheck Uric Acid level in 5wks - F/u in 6 weeks Ordered: allopurinol(allopurinol 300 mg oral tablet), 1 tab(s), Oral, Daily, # 90 tab(s), 0 total refill(s), Maintenance, 1 tab(s) Oral Daily, Pharmacy: [id number] [External Rx] Uric Acid Level Capt William Carty, DO PGY-1 Manager Credit [facility] [address]HCOS/[facility], [place] Addendum by ALLEN MOLINA MD on September 12, 2023 16:01:52 CHAIR MECHANIC I was present and available in the family medicine clinic to discuss the patient's care during the time of the appointment. I agree with the resident's assessment and plan as documented. Allen Molina MD, Faculty, [facility], [facility], Attending Physician Extracted from:Title: FMR- DM, Piriformis, CHRISTA Author: WILLIAM CARTY MD Date: 08/03/23 1. D iabetes mellitus Chronic. Controlled. Last A1c in 04/27, under goal <7. Plan: - refill metformin - repeat A1c in 1 year Ordered: metFORMIN(metFORMIN 500 mg oral tablet), 1 tab(s), Oral, Daily, for diabetes, # 90 tab(s), 3 total refill(s), Maintenance, 1 tab(s) Oral Daily,Instr:for diabetes, Pharmacy: [facility] [Not filled] 2. D epression Controlled. Pt follows with [facility]. Denies SI/HI Plan: - refill amitriptyline 3months - continue f/u with PCB - f/u in 3 months Ordered: amitriptyline(amitriptyline 50 mg oral tablet), 1 tab(s), Oral, every day at bedtime, take one full pill night, # 90 tab(s), 0 total refill(s), Maintenance, 1 tab(s) Oral every day at bedtime,Instr:take one full pill night, Pharmacy: [facility] [Not filled] 3. E levated blood pressure On 3 medications, remains uncontrolled. May be due to pain vs CHRISTA. Normal Cr/GFR. Plan: - continue Metoprolol 50mg and Amlodipine-Benazepril 10-40mg - Recommend pt f/u Pulm for CPAP settings - consider starting Aldactone at next visit due to elevated pressure, will first see if controlled after CPAP setting adjusted. Will need to monitor K+ with bmp - Cannot be on thiazide 2/2 Gout 4. G out Chronic. 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 Not on prophylaxis medication. Plan: - start allopurinol 100mg PO daily, may increase to 200mg (2 x 100mg tabs) after 1 week. - check uric acid 1 week before next vist - f/u in 1 month Ordered: allopurinol(allopurinol 100 mg oral tablet), 1 tab(s), Oral, Daily, Take 1 tab daily for one week. After one week take 2tabs daily., # 90 tab(s), 0 total refill(s), Maintenance, 1 tab(s) Oral Daily,Instr:Take 1 tab daily for one week. After one week take 2tabs daily., Pharmacy: [facility] [N Uric Acid Level 5. H yperlipidemia Chronic. Labs show worsening LDL but stopped due to rec from bump grader operator. Did not find studies that suggest atorvastatin to worsen gout via uric acid levels Plan: - recommend pt restart his atorvastatin 6. O SA - Obstructive sleep apnea Chronic. Not seen pulm since diagnosis many years ago. Ran out of filters Plan: - referral to pulm for CHRISTA - Will w ork on NEXUS letter for patient Ordered: Referral Request 2.0 7. P iriformis syndrome Acute on Chronic. L hip/buttock. + straight leg test, TTP piriformis muscle, Plan: - Tylenol for pain, take with indomethacin - Continue PT - continue home stretches 8. S pondylosis Chronic pain since service. Lumbar XR from 04/27 s howing spondylosis and discogenic changes at L4 and L5. Plan: - Tylenol with indomethacin for pain - Will w ork on NEXUS letter for patient Capt William Carty DO PGY-1 Manager Credit [facility] [address]/[facility] [place], [place] Addendum by LEONA ARECHIGA MD on August 04, 2023 09:11:01 CHAIR MECHANIC I certify that I was present for case discussion in the Family Medicine preceptor room at the time of this encounter. I have reviewed the note and agree with the findings, assessment, and plan except as I have documented below. Follow up as listed. All labs/imaging/consults to be followed by the ordering provider. Leona Arechiga MD, [facility] [place], Staff Physician - Discussed with resident proper formatting of plan for DM/HTN/depression/anxiety to be completed at next visit. Extracted from:Title: Ambulatory Patient Education Author: LAVERNE VARELA LCSW Date: 05/18/23 Extracted from:Title: Ambulatory Patient Education Author: LAVERNE VARELA LCSW Date: 05/07/23 Mental and Behavioral Health Chronic Pain, Adult Chronic pain is a type of pain that lasts or keeps coming back for at least 3 6 months. You may have headaches, pain in the abdomen, or pain in other areas of the body. Chronic pain may be related to an illness, such as fibromyalgia or complex regional pain syndrome. Chronic pain may also be related to an injury or a health condition. Sometimes, the cause of chronic pain is not known. Chronic pain can make it hard for you to do daily activities. If not treated, chronic pain can lead to anxiety and depression. Treatment depends on the cause and severity of your pain. You may need to work with a pain specialist to come up with a treatment plan. The plan may include medicine, counseling, and physical therapy. Many people benefit from a combination of two or more types of treatment to control their pain. Follow these instructions at home: Medicines Take gpoa-apw-ohovtbh and prescription medicines only as told by your health care provider. Ask your health care provider if the medicine prescribed to you: Requires you to avoid driving or using machinery. Can cause constipation. You may need to take these actions to prevent or treat constipation: Drink enough fluid to keep your urine pale yellow. Take [id number]-[id number] or prescription medicines. Eat foods that are high in fiber, such as beans, whole grains, and fresh fruits and vegetables. Limit foods that are high in fat and processed sugars, such as fried or sweet foods. Treatment plan Follow your treatment plan as told by your health care provider. This may include: Gentle, regular exercise. Eating a healthy diet that includes foods such as vegetables, fruits, fish, and lean meats. Cognitive or behavioral therapy that changes the way you think or act in response to the pain. This may help improve how you feel. Working with a physical therapist. Meditation, yoga, acupuncture, or massage therapy. Aroma, color, light, or sound therapy. Local electrical stimulation. The electrical pulses help to relieve pain by temporarily stopping the nerve impulses that cause you to feel pain. Injections. These deliver numbing or pain-relieving medicines into the spine or the area of pain. Lifestyle Ask your health care provider whether you should keep a pain diary. Your health care provider will tell you what information to write in the diary. This may include when you have pain, what the pain feels like, and how medicines and other behaviors or treatments help to reduce the pain. Consider talking with a mental health care provider about how to manage chronic pain. Consider joining a chronic pain support group. Try to control or lower your stress levels. Talk with your health care provider about ways to do this. General instructions Learn as much as you can about how to manage your chronic pain. Ask your health care provider if an intensive pain rehabilitation program or a chronic pain specialist would be helpful. Check your pain level as told by your health care provider. Ask your health care provider if you should use a pain scale. It is up to you to get the results of any tests that were done. Ask your health care provider, or the department that is doing the tests, when your results will be ready. Keep all follow-up visits as told by your health care provider. This is important. Contact a health care provider if: Your pain gets worse, or you have new pain. You have trouble sleeping. You have trouble doing your normal activities. Your pain is not controlled with treatment. You have side effects from pain medicine. You feel weak. You notice any other changes that show that your condition is getting worse. Get help right away if: You lose feeling or have numbness in your body. You lose control of bowel or bladder function. Your pain suddenly gets much worse. You develop shaking or chills. You develop confusion. You develop chest pain. You have trouble breathing or shortness of breath. You pass out. You have thoughts about hurting yourself or others. If you ever feel like you may hurt yourself or others, or have thoughts about taking your own life, get help right away. Go to your nearest emergency department or: Call your local emergency services (058 in the [place] Call a suicide crisis helpline, such as the National Suicide Prevention Lifeline at or 159 in the [place] This is open 24 hours a day in the [place] Text the Crisis Text Line at 140633 (in the [place] Summary Chronic pain is a type of pain that lasts or keeps coming back for at least 3 6 months. Chronic pain may be related to an illness, injury, or other health condition. Sometimes, the cause of chronic pain is not known. Treatment depends on the cause and severity of your pain. Many people benefit from a combination of two or more types of treatment to control their pain. Follow your treatment plan as told by your health care provider. This information is not intended to replace advice given to you by your health care provider. Make sure you discuss any questions you have with your health care provider. Document Revised: 01/15/2022 Document Reviewed: 03/08/2020 [employer] Patient Education 2021 [employer]. Extracted from:Title: FMR-Back/Depression Author: WILLIAM CARTY MD Date: 04/17/23 1. S pondylosis 57y/o with PMHx HTN, gout, Obesity, and DM presenting to clinic for his severe back/hip pain. Reviewed XR s howing Spondylosis and discogenic changes L4-L5. Pt stating R side starting to be painful after starting PT. Plan: - D iscussed C ontinuing PT 2x weekly and home s tretching a nd m uscle strengthening. Mentioned that this is the best method for helping spondylosis but will take time - C ontinue Tylenol for pain, take with indomethacin - amitriptyline primarily for depression, b ut may help with nerve pain as well - no indication for injections or surgery at this time - f/u in the next 2-4months p rn or sooner if symptoms worsening such as developing hematuria, severe wt loss, or saddle anesthesia 2. D epression Recent dx, has seen [facility] and started on 30 day trial of amitriptyline a t last visit. No SE with med. Overall mood improved since last visit. Denies SI/SA/HI. PHQ9- 17, GAD7- 14 Plan: - pt has f/u with [facility] - will continue to implement strategies and develop goals - refill amitriptyline - If pt develops SI/HI or has a plan, pt was instructed to call 911 or go to nearest ER - f/u prn Ordered: amitriptyline(amitriptyline 50 mg oral tablet), 1 tab(s), Oral, every day at bedtime, take one full pill night, # 90 tab(s), 0 total refill(s), Maintenance, 1 tab(s) Oral every day at bedtime,Instr:take one full pill night, Pharmacy: [facility] [Not filled] 3. D yslipidemia associated with type II diabetes mellitus Chronic. Restarted statin therapy. Pt recent labs not at goal of LDL below 100. Plan: - continue with atorvastatin 40mg - recheck labs in 6-8wks 4. E ssential hypertension Chronic on medications. Elevated today with repeat. Likely 2/2 to pain Plan: - due to time constraints, pt stated he would like to schedule apt to address problem in next 2-4wk - continue current medications Capt William Carty DO PGY-1 Manager Credit [facility] [address] [address], [place] Addendum by FROILAN FRANK DO on April 20, 2023 09:26:36 CDT I certify that I was physically present with the resident and patient. I have discussed the diagnosis and treatment plan with the resident [id number]. I have reviewed the note and concur with the findings, assessment, and plan. Follow up as listed. All labs/imaging/consults to be followed by the ordering provider. Capt Izaiah, [facility], Staff Physician Extracted from:Title: Ambulatory Patient Education Author: LAVERNE VARELA LCSW Date: 04/06/23 Mental and Behavioral Health Managing Stress, Adult Feeling a certain amount of stress is normal. Stress helps our body and mind get ready to deal with the demands of life. Stress hormones can motivate you to do well at work and meet your responsibilities. However severe or long-lasting (chronic) stress can affect your mental and physical health. Chronic stress puts you at higher risk for anxiety, depression, and other health problems like digestive problems, muscle aches, heart disease, high blood pressure, and stroke. What are the causes? Common causes of stress include: Demands from work, such as deadlines, feeling overworked, or having long hours. Pressures at home, such as money issues, disagreements with a spouse, or parenting issues. Pressures from major life changes, such as divorce, moving, loss of a loved one, or chronic illness. You may be at higher risk for stress-related problems if you do not get enough sleep, are in poor health, do not have emotional support, or have a mental health disorder like anxiety or depression. How to recognize stress Stress can make you: Have trouble sleeping. Feel sad, anxious, irritable, or overwhelmed. Lose your appetite. Overeat or want to eat unhealthy foods. Want to use drugs or alcohol. Stress can also cause physical symptoms, such as: Sore, tense muscles, especially in the shoulders and neck. Headaches. Trouble breathing. A faster heart rate. Stomach pain, nausea, or vomiting. Diarrhea or constipation. Trouble concentrating. Follow these instructions at home: Lifestyle Identify the source of your stress and your reaction to it. See a therapist who can help you change your reactions. When there are stressful events: Talk about it with family, friends, or co-workers. Try to think realistically about stressful events and not ignore them or overreact. Try to find the positives in a stressful situation and not focus on the negatives. Cut back on responsibilities at work and home, if possible. Ask for help from friends or family members if you need it. Find ways to cope with stress, such as: Meditation. Deep breathing. Yoga or sirena chi. Progressive muscle relaxation. Doing art, playing music, or reading. Making time for fun activities. Spending time with family and friends. Get support from family, friends, or spiritual resources. Eating and drinking Eat a healthy diet. This includes: Eating foods that are high in fiber, such as beans, whole grains, and fresh fruits and vegetables. Limiting foods that are high in fat and processed sugars, such as fried and sweet foods. Do not skip meals or overeat. Drink enough fluid to keep your urine pale yellow. Alcohol use Do not drink alcohol if: Your health care provider tells you not to drink. You are , may be , or are planning to become . Drinking alcohol is a way some people try to ease their stress. This can be dangerous, so if you drink alcohol: Limit how much you use to: 0 1 drink a day for women. 0 2 drinks a day for men. Be aware of how much alcohol is in your drink. In the [place] one drink equals one 12 oz bottle of beer (355 mL), one 5 oz glass of wine (148 mL), or one 1 oz glass of hard liquor (44 mL). Activity Include 30 minutes of exercise in your daily schedule. Exercise is a good stress metal forger's assistant. Include time in your day for an activity that you find relaxing. Try taking a walk, going on a bike ride, reading a book, or listening to music. Schedule your time in a way that lowers stress, and keep a consistent schedule. Prioritize what is most important to get done. General instructions Get enough sleep. Try to go to sleep and get up at about the same time every day. Take bimz-dlp-fkzoldb and prescription medicines only as told by your health care provider. Do not use any products that contain nicotine or tobacco, such as cigarettes, e-cigarettes, and chewing tobacco. If you need help quitting, ask your health care provider. Do not use drugs or smoke to cope with stress. Keep all follow-up visits as told by your health care provider. This is important. Where to find support Talk with your health care provider about stress management or finding a support group. Find a therapist to work with you on your stress management techniques. Contact a health care provider if: Your stress symptoms get worse. You are unable to manage your stress at home. You are struggling to stop using drugs or alcohol. Get help right away if: You may be a danger to yourself or others. You have any thoughts of or suicide. If you ever feel like you may hurt yourself or others, or have thoughts about taking your own life, get help right away. You can go to your nearest emergency department or call: Your local emergency services (911 in the [place] A suicide crisis helpline, such as the National Suicide Prevention Lifeline at . This is open 24 hours a day. Summary Feeling a certain amount of stress is normal, but severe or long-lasting (chronic) stress can affect your mental and physical health. Chronic stress can put you at higher risk for anxiety, depression, and other health problems like digestive problems, muscle aches, heart disease, high blood pressure, and stroke. You may be at higher risk for stress-related problems if you do not get enough sleep, are in poor health, lack emotional support, or have a mental health disorder like anxiety or depression. Identify the source of your stress and your reaction to it. Try talking about stressful events with family, friends, or co-workers, finding a coping method, or getting support from spiritual resources. If you need more help, talk with your health care provider about finding a support group or a mental health therapist. This information is not intended to replace advice given to you by your health care provider. Make sure you discuss any questions you have with your health care provider. Document Revised: 08/30/2021 Document Reviewed: 01/18/2020 [employer] Patient Education 2021 [employer]. Extracted from:Title: FMR- Piriformis/Depression Author: WILLIAM CARTY MD Date: 04/03/23 1. L eft-sided piriformis syndrome 57y/o M presents with pain for the past 3 months in L hip/buttock. + straight leg test, TTP piriformis muscle, sits on wallet in L back pocket. Plan: - advised to stop placing wallet in back pocket - recommend PT referral t o help with stretching muscle and strengthening - Given website to RX workouts for back/hip - Tylenol for pain, take with indomethacin Labs ordered ahead for pt's annual wellness visit in 2wks Refill Indomethacin for pt gout Ordered: acetaminophen(acetaminophen 325 mg oral tablet), 1 tab(s), Oral, every 4 hr, PRN pain or fever, X 30 days, # 50 tab(s), 0 total refill(s), Acute, 05/03/2023, 1 tab(s) Oral every 4 hr,x30 days,PRN:pain or fever, Pharmacy: [facility] [Not filled] XR Spine Lumbosacral 2 or 3 Views Referral Request 2.0 2. L umbago with sciatica, left side Pt has had chronic back pain, worsening in past few months. TTP back with hypertonicity. Noted to have xrays done while in due to accidents while on job, no recent imaging. Plan: - as mentioned above, may take Tylenol with indomethacin for pain - order xray of lumbosacral spine - PT referral sent - amitriptyline primarily for depression, see below, but may help with nerve pain as well Ordered: acetaminophen(acetaminophen 325 mg oral tablet), 1 tab(s), Oral, every 4 hr, PRN pain or fever, X 30 days, # 50 tab(s), 0 total refill(s), Acute, 05/03/2023, 1 tab(s) Oral every 4 hr,x30 days,PRN:pain or fever, Pharmacy: [facility] [Not filled] XR Spine Lumbosacral 2 or 3 Views Referral Request 2.0 3. D epression Pt stated he had been feeling down and even had SI a couple times due to the pain and his socioeconomic situation, no plan. In clinic denies SI/SA/HI. GAD7- 9 PHQ9-11 Plan: - due to pt thoughts of suicide and blackbox warning of SSRI's r egarding increase of SI. - will instead rx amitriptyline for depression and benefit of treating neuropathic pain - will start with 25mg daily for 7days and then will continue on with 50mg daily - [facility] recommended for pt, pt agreeable and will schedule with them - If pt develops SI/HI or has a plan, pt was instructed to call 911 or go to nearest ER Ordered: amitriptyline(amitriptyline 50 mg oral tablet), 1 tab(s), Oral, every day at bedtime, Take one half a pill nightly for 1week, then take one full pill nightly, # 30 tab(s), 0 total refill(s), Maintenance, 1 tab(s) Oral every day at bedtime,Instr:Take one half a pill nightly for 1week, then take one... [ 4. A llergic rhinitis Chronic. Normally well controlled, but pt has not had money to buy OTC allergy meds. Symptoms of runny nose, postnasal drip, cough, watery eyes. Plan: - ordered FLonase, instructed pt on how to use properly. Use BID - ordered Zyrtec at night daily. Ordered: fluticasone nasal(Flonase 50 mcg/inh nasal spray), 50 mcg, Nostril-Both, BID, # 16 g, 5 total refill(s), Maintenance, 50 mcg Nostril-Both BID, Pharmacy: [facility] [Not filled] cetirizine(ZyrTEC 10 mg oral tablet), 1 tab(s), Oral, Daily, PRN allergy symptoms, # 90 tab(s), 3 total refill(s), Maintenance, 1 tab(s) Oral Daily,PRN:allergy symptoms, Pharmacy: [facility] [Not filled] Orders: indomethacin(indomethacin 50 mg oral capsule), 1 cap(s), Oral, TID, PRN pain (moderate), with food or milk, # 270 cap(s), 0 total refill(s), Maintenance, 1 cap(s) Oral TID,PRN:pain (moderate),Instr:with food or milk, Pharmacy: [facility] [Not filled] Comprehensive Metabolic Panel Hemoglobin A1c Lipid Panel Prostate Specific Antigen Capt William Carty DO PGY-1 Manager Credit [facility] [place], [place] Addendum by CHUY HANSON DO on April 06, 2023 10:51:45 CDT I certify that I was physically present with the resident and patient. I have discussed the diagnosis and treatment plan with the resident [id number]. I have reviewed the note and concur with the findings, assessment, and plan. Follow up as listed. All labs/imaging/consults to be followed by the ordering provider. Capt Azar DO, [facility], Staff Physician 12/13/2024 [id number] [facility] Plan of Care List of future care activities from Department of [facility] Affairs facilities. Additional future care activities may be listed in the Assessment and Plan section. Date/Time Care Activity Care Activity Detail Facili ty 01/26/2025 AMBULATORY - MEDICINE AMBULATORY - MEDICI [facility] Functional Status Combined list of recent functional and cognitive assessments recorded at Department of [facility] and [facility] Affairs (VA).VA Functional [place] Measurement (FIM) Scale: 1 = Total Assistance (Subject = 0% +), 2 = Maximal Assistance (Subject = 25% +), 3 = Moderate Assistance (Subject = 50% +), 4 = Minimal Assistance (Subject = 75% +), 5 = Supervision, 6 = Modified [place] (Device), 7 = Complete [place] (Timely, Safely). Assessment Date/Time Source Assessment Type Assessment Skill Assessment Score Assessment Details No data available for this section
--- OUTSIDE RECORDS SUMMARY | 2024-12-13 16:31 | XMS_ITS | Encounter Summary ---
Author Name [facility] [facility] [place] Address [address] [place] [address] Care Team Providers Care Communications Representative Name Role Phone MIRANDA GONZALES Primary Care Provider Nancy hurtado Selected Encounter This section includes the information on record at [place] for the Encounter. 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 Date/Time Primary/Secondary Diagnosis Diagnosis Name Provider Source Dec 31, 2023 04:12 PM PRIMARY Unqualified visual loss, both eyes CALIXTO LOPEZ [facility] Plan of Treatment: Future Appointments (+ 6 months) and Future Tests (+/- 45 days) The Plan of Treatment section includes future care activities for the patient from all [place] treatmentfacilities. This section includes future appointments and future orders which are active, pending or scheduled. Future Appointments This section includes appointments that were scheduled to occur 6 months from the date of the Encounter, up to a maximum of 20 appointments. The data comes from all [place] treatment facilities. Appointment Date/Time Appointment Type Appointme nt Facility Name Feb 01, 2024 03:00 PM AMBULATORY - MEDICINE [facility] Feb 04, 2024 04:00 PM AMBULATORY - PSYCHIATRY [facility] Feb 08, 2024 03:00 PM AMBULATORY - SURGERY [facility] Mar 03, 2024 04:00 PM [facility] Mar 17, 2024 04:00 PM AMBULATORY - PSYCHIATRY [facility] Apr 11, 2024 09:30 AM [facility]ORY - [facility]ICINE [facility] Social History: Smoking Status (Most current) and Tobacco Use (All prior to encounter date) This section includes the most current, and the historical, smoking and tobacco- related health factors from the [place] facility where the Encounter took place. Current Smoking Status This section includes the most current smoking, or tobacco-related health factor, from the [place] facility where the Encounter took place. Date/Time Current Smoking Status Comment Facil facundo Jan 05, 2023 02:30 PM VA-TOBACCO NEVER USED [facility] Encounter Notes: All associated encounter notes This section contains the clinical notes associated to the Encounter. Date/Time Encounter Note(s) Provider Source Dec 31, 2023 03:54 PM BLIND REHABILITATI ON NOTE: LOCAL TITLE: BLIND REHAB INTERMEDIATE LOW VISION [facility] STANDARD TITLE: BLIND REHABILITATION NOTE DATE OF NOTE: DEC 31, 2023@15:54 ENTRY DATE: DEC 31, 2023@15:54:51 AUTHOR: CALIXTO LOPEZ COSIGNER: URGENCY: STATUS: COMPLETED INTERMEDIATE L[facility]ISION CLINIC THERAPY NOTE Session Date: 12/31/23 Start Time: 3:45 End Time: 3:53 Total Time: 8 mins CPT Codes: 08436 Health Behavior Assessment 75054 Health Behavior Intervention, Initial 30 Mins 28804 Health Behavior Intervention, Additional 99092 Health Behavior Intervention w/pt and family, Initial 30 Mins 81508 Health Behavior Intervention w/pt and family, Additional __x1___ 73986 Sensory Integration Techniques 61049 Self Care Management 12325 Assistive Technology Assessment 11859 Health Care Provider Phone Call (5-10 min) [id number] Health Care Provider Phone Call (11-20 min) [phone] Health Care Provider Phone Call (21-30 min) Dx: 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 Narrative of Service: Liz stopped into [facility] office today for an unscheduled visit as he had another appointment at . reports that he loves the Samuel Lumina floor lamps he received at his [facility] appointment. reports he carries one around the house with him. He was picking one of the lamps up the other day, bent the gooseneck to far, and it broke. Granville initially inquired about how he could purchase a replacement himself. T informed him that he may not be able to purchase privately through the vendor we use. T offered to order a replacement lamp at this time and was very greatful. LVT also demo'd the [employer]is lamp to today as a more portable option to utilize around his home. Discussed the adjustable features available similar to the Samuel Lumina lamp. Granville would also like to trial the Elumentis lamp as well. This will also be ordered at this time. Plan: 1. All goals met at this time 2. The following items will be ordered and shipped to 's home: From [facility]: Elumentis LED Lamp 1603-9 Samuel Lumina Max Floor Lamp [id number] /es/ CALIXTO LOPEZ OTD, OTR/L, CLVT Signed: 12/31/2023 16:12 CALIXTO LOPEZ [facility]
--- OUTSIDE RECORDS SUMMARY | 2024-12-13 16:31 | XMS_ITS ---
Author Name [facility] [place] Address [address] [place] [address] Care Team Providers Care Reporting Manager Name Role Phone MIRANDA GONZALES Primary Care Provider Nancy hurtado Selected Encounter This section includes the information on record at [place] for the Encounter. Date/Time Encounter Type Encounter Description Reason Provider Source Dec 15, 2023 10:00 AM [facility] IVNTJ GRP EA ADDL [facility] TREATMENT ICD-10-CM G89.4 Chronic pain syndrome EDVIN PEDRAZA E Encounter Template Text not used by [place] Assessments - Encounter Diagnoses This section includes the primary and secondary diagnoses documented for the Encounter. Date/Time Primary/Secondary Diagnosis Diagnosis Name Provider Source Dec 15, 2023 11:54 AM PRIMARY Chronic pain syndrome BRENDA PEDRAZA [facility] Plan of Treatment: Future Appointments (+ 6 months) and Future Tests (+/- 45 days) The Plan of Treatment section includes future care activities for the patient from all [place] treatmentfacilities. This section includes future appointments and future orders which are active, pending or scheduled. Future Appointments This section includes appointments that were scheduled to occur 6 months from the date of the Encounter, up to a maximum of 20 appointments. The data comes from all [place] treatment facilities. Appointment Date/Time Appointment Type Appointme nt Facility Name Dec 22, 2023 10:00 AM AMBULATORY - NONE . [facility] Dec 31, 2023 04:00 PM AMBULATORY - PSYCHIATRY [facility] Feb 01, 2024 03:00 PM [facility] Feb 04, 2024 04:00 PM [facility] Feb 08, 2024 03:00 PM AMBULATORY - SURGERY . [facility] Mar 03, 2024 04:00 PM [facility] Mar 17, 2024 04:00 PM AMBULATORY - PSYCHIATRY [facility] Apr 11, 2024 09:30 AM AMBULATORY - MEDICINE [facility] Social History: Smoking Status (Most current) and Tobacco Use (All prior to encounter date) This section includes the most current, and the historical, smoking and tobacco- related health factors from the [place] facility where the Encounter took place. Current Smoking Status This section includes the most current smoking, or tobacco-related health factor, from the [place] facility where the Encounter took place. Date/Time Current Smoking Status Comment Facil ity Jan 05, 2023 02:30 PM [place]-TO[place]ACCO NEVER USED [facility] Encounter Notes: All associated encounter notes This section contains the clinical notes associated to the Encounter. Date/Time Encounter Note(s) Provider Source Dec 15, 2023 11:47 AM INTEGRATIVE HEALTH NOTE: LOCAL TITLE: WHOLE HEALTH COMPLEMENTARY APPROACH GROUP - [facility] STANDARD TITLE: INTEGRATIVE HEALTH NOTE DATE OF NOTE: DEC 15, 2023@11:47 ENTRY DATE: DEC 15, 2023@11:47:13 AUTHOR: PILAR PEDRAZA COSIGNER: URGENCY: STATUS: COMPLETED WHOLE HEALTH COMPLEMENTARY APPROACH GROUP - [facility] MODALITY OF CARE: Clinical Video Telehealth provided verbal consent for telehealth through [employer]. The [employer] platform is utilized because of its enhanced group features that foster a greater experience of community and confidentiality (multi-panel view of all group participants, telephone access, and private chats option for participants and group therapy counselor). Confirmed 's location and phone number for virtual appointment. VISIT DATE: 12/15/23 NUMBER OF PARTICIPANTS: 6 SESSION LENGTH: 95 minutes GROUP TITLE: [facility] Mindfulness Group TREATMENT GOALS: Increase mindfulness and improve overall quality of life. INTERVENTION/TREATMENT PROVIDED: Mindfulness-based interventions for health behaviors. SESSION 7 of 8: Enhancing Resilience -Veterans each engaged in mindful check-in and shard about their daily mindfulness home practice. -Guided Veterans through Compassionate Breathing meditation. Veterans shared their responses. -Introduced strategies for enhancing resilience. -Guided Veterans through Drawing on Strength reflection practice. -Veterans shared their experiences and reactions to the practices. -Guided Veterans through Mindfulness of Breathing meditation. -Introduced home practice: Daily Compassionate Breathing meditation or other meditations that have been helpful. Use internal resources of mindfulness and compassion to meet difficult situations. Continue with informal practice. RISK ASSESSMENT: did not indicate acute distress during the group; did not verbalize ideation of harm to self/others. RESPONSE TO INTERVENTIONS: [place] participated appropriately. [place] was alert and attentive throughout the session. PLAN: [place] will attend next session of 8-week group. INFORMED CONSENT: The purpose and agenda for this session were shared with participants at the outset of the class. Participants were given an opportunity to ask questions before proceeding. The voluntary nature of group participation, along with any potential complications, were discussed in the initial session, and [place] consented. DIAGNOSIS (medical/health condition being treated): Chronic pain syndrome /es/ Pilar Pedraza, Ph.D. Clinical Psychologist Signed: 12/15/2023 11:55 PILAR PEDRAZA [facility]
--- OUTSIDE RECORDS SUMMARY | 2024-12-13 16:32 | XMS_ITS | Encounter Summary ---
Author Name [facility] [place] [place] Organization [facility] [place] [place] Address [address] [place] [address] Care Team Providers Care Design And Sales Consultant Name Role Phone MIRANDA GONZALES Primary Care Provider Nancy hurtado Selected Encounter This section includes the information on record at [place] for the Encounter. Date/Time Encounter Type Encounter Description Reason Provider Source Feb 01, 2024 03:00 PM OFFICE O/P EST MOD 30 MIN PRIMARY CARE/MEDICINE ICD-10-CM G89.4 Chronic pain syndrome YOUSUF GONZALES Harriet Encounter Template Text not used by [place] Assessments - Encounter Diagnoses This section includes the primary and secondary diagnoses documented for the Encounter. Date/Time Primary/Secondary Diagnosis Diagnosis Name Provider Source Feb 01, 2024 03:37 PM PRIMARY Chronic pain syndrome YOUSUF GONZALES [facility] Feb 01, 2024 03:37 PM SECONDARY Essential (primary) hypertension YOUSUF GONZALES [facility] Feb 01, 2024 03:37 PM SECONDARY Gout, unspecified YOUSUF GONZALES [facility] Feb 01, 2024 03:37 PM SECONDARY Hyperlipidemia, unspecified YOUSUF GONZALES [facility] Feb 01, 2024 03:37 PM SECONDARY Type 2 diabetes mellitus without complications YOUSUF GONZALES [facility] Plan of Treatment: Future Appointments (+ 6 months) and Future Tests (+/- 45 days) The Plan of Treatment section includes future care activities for the patient from [facility] [place] [facility] This section includes future appointments and future orders which are active, pending or scheduled. Future Appointments This section includes appointments that were scheduled to occur 6 months from the date of the Encounter, up to a maximum of 20 appointments. The data comes from all [facility]. Appointment Date/Time Appointment Type Appointme nt Facility Name Feb 04, 2024 04:00 PM AMBULATORY - PSYCHIATRY [facility] Feb 08, 2024 03:00 PM AMBULATORY - SURGERY [facility] Mar 03, 2024 04:00 PM AMBULATORY - PSYCHIATRY [facility] Mar 17, 2024 04:00 PM AMBULATORY - PSYCHIATRY [facility] Apr 11, 2024 09:30 AM AMBULATORY - MEDICINE [facility] Aug 01, 2024 02:00 PM AMBULATORY MEDICINE [facility] Vital Signs: All taken on the encounter date This section contains inpatient and outpatient Vital Signs collected on the date of the Encounter. Date/Time Temperature Pulse Blood Pressure Respiratory Rate SP02 Pain Height Weight Body Mass Index Source Feb 01, 2024 03:24 PM 138/78 [facility] Feb 01, 2024 03:14 PM 140/80 [facility] Feb 01, 2024 03:09 PM 99.1 72 147/83 18 97 5 260.2 34 [facility] N Social History: Smoking Status (Most current) and Tobacco Use (All prior to encounter date) This section includes the most current, and the historical, smoking and tobacco- related health factors from the [place] facility where the Encounter took place. Current Smoking Status This section includes the most current smoking, or tobacco-related health factor, from the [place] facility where the Encounter took place. Date/Time Current Smoking Status Natalie loredo Feb 01, 2024 03:00 PM VA-TOBACCO NEVER USED [facility] Tobacco Use History This section includes a history of the smoking, or tobacco-related health factors, that were collected on or before the date of the Encounter. The data comes from the [place] facility where the Encounter took place. Date/Time Smoking Status/Tobacco Use Comment F acility Jan 05, 2023 02:30 PM VA-TOBACCO NEVER USED [facility] Encounter Notes: All associated encounter notes This section contains the clinical notes associated to the Encounter. Date/Time Encounter Note(s) Provider Source Feb 01, 2024 03:14 PM PRIMARY CARE NOTE: LOCAL TITLE: PRIMARY CARE PROVIDER ESTABLISHED VISIT ST STANDARD TITLE: PRIMARY CARE NOTE DATE OF NOTE: FEB 01, 2024@15:14 ENTRY DATE: FEB 01, 2024@15:14:25 AUTHOR: MIRANDA GONZALES COSIGNER: URGENCY: STATUS: COMPLETED ESTABLISHED PATIENT [id number]: REASON FOR VISIT/CHIEF COMPLAINT: Annual visit, he is a 58 year old M with a h/o HTN,HLD,DM,CHRISTA on CPAP, gout history. He is doing much better, on the path now. using flonase with great results for his allergies. Sees a doctor as well. Following now with , happy with this as well. Holding the statin on recommendation of rheum. Muscle relaxeer very helpful, renewed. ALLERGIES: Patient has answered NKA ALLERGY REVIEW: Allergy list reviewed and remains current. MEDICATION RECONCILIATION: I have reviewed the patient's medication list with the patient and/or his/her care-biometric fingerprinting technician. Handwritten corrections, additions and/or deletions were made to the list. Corrected Outpatient Medication List was provided to the patient/caregiver. Active Outpatient Medications (including Supplies): Active Outpatient Medications Status 1) CAMPHOR 0.5/MENTHOL 0.5% LOTION APPLY LIBERALLY TO ACTIVE AFFECTED AREA(S) THREE TIMES A DAY NEEDED FOR ITCHING - (EXTERNAL USE ONLY) CAN KEEP IN FRIDGE FOR ADDITIONAL BENEFIT 2) CETIRIZINE HCL 10MG TAB TAKE ONE TABLET BY MOUTH ACTIVE TWICE A DAY FOR ALLERGY SYMPTOMS 3) COLCHICINE 0.6MG TAB TAKE ONE TABLET BY MOUTH ONCE A ACTIVE DAY STOP MED AND CONTACT PROVIDER AT FIRST SIGN OF NAUSEA, VOMITING, OR DIARRHEA 4) HYDROXYZINE HCL 25MG TAB TAKE ONE TABLET BY MOUTH AT ACTIVE BEDTIME NEEDED FOR PRURITIS *MAY CAUSE DROWSINESS* 5) OLOPATADINE HCL 0.7% OPH SOLN INSTILL 1 DROP IN BOTH ACTIVE EYES ONCE A DAY FOR ALLERGIES 6) PETROLATUM (WHITE) OINT APPLY LIBERALLY TO AFFECTED ACTIVE AREA(S) THREE TIMES A DAY 7) TRIAMCINOLONE ACETONIDE 0.1% OINT APPLY LIGHTLY TO ACTIVE AFFECTED AREA(S) TWICE DAILY NEEDED (EXTERNAL USE ONLY) MUCH NEEDED FOR SEVERE ITCHING/RASH Active Non-VA Medications Status 1) Non-VA AMLODIPINE 10MG/BENAZEPRIL 20MG CAP 1 CAPSULE ACTIVE BY MOUTH ONCE A DAY 2) Non-VA ATORVASTATIN CALCIUM 80MG TAB 40MG BY MOUTH ACTIVE EVERY EVENING 3) Non-VA METFORMIN HCL 500MG 24HR SA TAB 500MG BY MOUTH ACTIVE ONCE A DAY 4) Non-VA METOPROLOL SUCCINATE 50MG SA TAB 25MG BY MOUTH ACTIVE ONCE A DAY 11 Total Medications VITALS (most recent, as listed in the electronic record): B/P: 147/83 (02/01/2024 15:09) Pulse: 72 (02/01/2024 15:09) Temperature: 99.1 F [37.3 C] (02/01/2024 15:09) Weight: 260.2 lb [118.02 kg] (02/01/2024 15:09) Height: 73 in [185.4 cm] (08/11/2023 09:47) BMI: 34.4 Pain: 5 (02/01/2024 15:09) (0-10 scale) PMH: PSH: # HTN # HL # DM # gout FH: ROS: DENIES CP SOB DIZZINESS HEAT/COLD INTOLERANCE WT LOSS/GAIN BOWEL/BLADDER PROBLEMS 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 PSA/DARIN TETANUS PNEUMOVAX ZOSTAVAX HIV TESTING SH: SMOKE no ETOH several times a week. [employer] 07/13/1985 TO 05/05/2008. 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 PE: WDWN male, HEENT: ROSARLA EOMI NECK: SUPPLE CV: RRR NO M/R/G LUNGS: CLEAR ABD: SOFT NT BS ACTIVE EXT: NO EDEMA PULSES INTACT NEURO: A/O CNI, GAIT NML A/P # pos anxiety/etoh: MH following now. Aware of f/up appointment. # HTN: repett at goal. cct for now. # HL: at goal on statin # DM: on long acting metformin. a1c 7.1%. # gout: UA wnl 08/2022. rheum referral as has been hard to control. Advised re alcohol/dietary discretion and gout. HM: Given all clinic/ER information and contact numbers. Aware that does not have emergency services nor a designated walk in clinic. psa wnl 08/2022. [facility]. DISCUSSED DIET AND EXERCISE KEEP FUTURE APPOINTMENTS PATIENT VOICED UNDERSTANDING OF PLAN OF CARE RTC 6 mo, prn PREVENTION & SCREENING: ALCOHOL: Clinical Reminder not due now or within a month BLOOD PRESSURE: Clinical Reminder not due now or within a month HEMOGLOBIN A1C: Clinical Reminder not due now or within a month HTN Assess for Elevated BP>=140/90: Repeat blood pressure: 138/78 The patient's blood pressure is usually adequately controlled. No medication changes are indicated at this time. /francine/ MIRANDA GONZALES Staff Physician Signed: 02/01/2024 15:37 MIRANDA GONZALES [facility] Feb 01, 2024 03:11 PM NURSING NOTE: LOCAL TITLE: V15 PACT FACE TO FACE NOTE STL STANDARD TITLE: NURSING NOTE DATE OF NOTE: FEB 01, 2024@15:11 ENTRY DATE: FEB 01, 2024@15:11:18 AUTHOR: MARGARET WYNN EXP COSIGNER: URGENCY: STATUS: COMPLETED Provider Visit: Patient Identifiers : Full Name Date of Reason for visit: Established Follow-Up Mode of Arrival: Ambulatory Allergy Review: Patient has answered NKA Allergy list reviewed and remains current. Recent Vital Signs: Temperature: 99.1 F [37.3 C] (02/01/2024 15:09) Pulse: 72 (02/01/2024 15:09) Respiration: 18 (02/01/2024 15:09) B/P: 147/83 (02/01/2024 15:09) Pain: 5 (02/01/2024 15:09) Wt: 260.2 lb [118.02 kg] (02/01/2024 15:09) Ht: 73 in [185.4 cm] (08/11/2023 09:47) BMI: 34.4 POX: 97% (02/01/2024 15:09) Would you like to discuss any personal problem, family problem, alcohol use, drug use, or a mental or emotional illness? Yes [place] is not in active MH care and requests to speak to [facility] Provider, warm hand-off initiated Contact provided Primary Care phone number and encouraged to call if any questions or concerns. Review that after hours nurse line [phone] and emergency room are available 26/01 for patient use. Contact verbalized good understanding. Homelessness/Food Insecurity Screen: In the past 2 months, have you been living in stable housing that you own, rent, or stay in as part of a household? Yes - Living in stable housing. Are you worried or concerned that in the next 2 months you may NOT have stable housing that you own, rent, or stay in as part of a household? No - Not worried about housing near future The reports the following: Within the past 12 months, you worried whether your food would run out before you got money to buy more. Never true Within the past 12 months, the food you bought just didn't last and you didn't have money to get more. Never true Tobacco Use Screening: The patient has never used tobacco. Alcohol Use Screen (AUDIT-C): Alcohol Screen: SCREEN FOR ALCOHOL (AUDIT-C) An alcohol screening test (AUDIT-C) was negative (score=3). 1. How often did you have a drink containing alcohol in the past year? Consider a drink to be a 12 ounce can or bottle of regular beer, 8 ounces of malt liquor, a 5 ounce glass of table wine, or a 1.5 ounce shot of liquor (like scotch, gin, or vodka). Two to three times per week 2. How many drinks containing alcohol did you have on a typical day when you were drinking in the past year? One or two drinks 3. How often did you have six or more drinks on one occasion in the past year? Never Influenza Immunization: No influenza vaccination was received during the recent influenza season. COVID-19 Immunization: Refused Pfizer Monovalent COVID-19 vaccine Immunization: COVID-19 (PFIZER), MRNA, LNP-S, PF, JALEN-SUCROSE, 30 MCG/0.3 ML (AGES 12+ YEARS) Refusal Reason: PATIENT DECISION Patient refuses all immunization(s) in the COVID-19 group Date Documented: 02/01/24 15:13 Suicide Screen: C-SSRS Screening [employer]-Suicide Severity Rating Scale (C-SSRS Screener) 1. Over the past month, have you wished you were or wished you could go to sleep and not wake up? No 2. Over the past month, have you had any actual thoughts of killing yourself? No 3. Over the past month, have you been thinking about how you might do this? Response not required due to responses to other questions. 4. Over the past month, have you had these thoughts and had some intention of acting on them? Response not required due to responses to other questions. 5. Over the past month, have you started to work out or worked out the details of how to kill yourself? Response not required due to responses to other questions. 6. If yes, at any time in the past month did you intend to carry out this plan? Response not required due to responses to other questions. 7. In your lifetime, have you ever done anything, started to do anything, or prepared to do anything to end your life (for example, collected pills, obtained a gun, gave away valuables, went to the roof but didn't jump)? No 8. If YES, was this within the past 3 months? Response not required due to responses to other questions. /francine/ MARGARET WYNN LPN LICENSED PRACTICAL NURSE Signed: 02/01/2024 15:14 MARGARET WYNN [facility]
--- OUTSIDE RECORDS SUMMARY | 2024-12-13 16:32 | XMS_ITS | Clinical Summary ---
Author Organization [facility] Address [address] [place] [address] Care Team Providers Care Claim Approver Name Role Phone Leoncio Chadwick MD Primary Care Provider Allergies No known active allergies Medications amLODIPine-maura zepriL (LOTREL) 10-40 mg per capsule 02/17/2020 Active metoprolol XL (TOPROL-XL) 25 mg extended release tablet 02/17/2020 Acti ve traZODone (DESYREL) 50 mg tablet Take 1 tablet (50 mg total) by mouth nightly for 1 dose 1 tablet 09/02/2023 Active Active Problems Problem Noted Date Diagnosed Date CHRISTA (obstructive sleep apnea) 09/02/2023 Psychophysiological insomnia 09/02/2023 Restless legs 09/02/2023 Encounter for screening colonoscopy 03/21/2020 Assessment & Plan (03/21/2020 1:06 PM CDT): No GI complaints or concerns. Denies questions regarding procedure. Will go ahead and schedule screening colonoscopy. BMI 32.0-32.9,adult 03/21/2020 Class 1 obesity due to exces s calories without serious comorbidity with body mass index (BMI) of 30.0 to 30.9 in adult 03/21/2020 History of colonic polyps 03/21/2020 Overview (03/21/2020): Added automatically from request for surgery [id number] Surgical History Surgery Date Site/Laterality Comments COLONOSCOPY 2014 or so At [facility] History Medical History Date Comments Colon polyp Social History Tobacco Use Types Packs/Day Years Used Date Smoking Tobacco: Never Passive Smoke Exposure: Never Smokeless Tobacco: Never Tobacco Cessation:Counseling Given: Not Answered Sex and Gender Information Value Date Recorded Sex Assigned at Not on file Legal Sex Male 4:55 AM COLLAR POINTER Gender Identity Not on file Sexual Orientation Not on file Obstetrics History Last Filed Vital Signs Vital Sign Reading Time Taken Comments Blood Pressure 152/82 07/27/2024 2:21 PM COLLAR POINTER Pulse 86 07/27/2024 2:21 PM COLLAR POINTER Temperature 37.1 C (98.7 F) 07/27/2024 2:21 PM COLLAR POINTER Respiratory Rate 18 07/27/2024 2:21 PM COLLAR POINTER Oxygen Saturation 98% 07/27/2024 2:21 PM COLLAR POINTER Inhaled Oxygen Concentration - - Weight 110.7 kg (244 lb) 07/27/2024 2:21 PM COLLAR POINTER Height 185.4 cm (6' 1) 07/27/2024 2:21 PM COLLAR POINTER Body Mass Index 32.19 07/27/2024 2:21 PM COLLAR POINTER Plan of Treatment Health Maintenance Due Date Last Done Comments Depression Screening 1965 Hepatitis C Screening 1965 Prostate Cancer Screening-PSA 1965 Hepatitis B Screening 1982 Regular Well Visit/Exam 18-64 1982 Covid-19 Vaccine ( season) 2024 06/11/2022, 05/22/2021, 10/23/2020, Additional history exists Influenza Vaccine (Season Ended) 2025 05/06/2022, 04/25/2010, 05/20/2007, Additional history exists Colon Cancer Screening-Colonoscopy 06/22/2030 06/22/2020 DTaP/Tdap/Td Vaccine (2 - Td or Tdap) 05/19/2031 05/19/2021, 04/24/2003, 12/28/1992 Colon Cancer Screening-CT Colonography Discontinued 06/22/2020 Colon Cancer Screening-DNA Stool Discontinued 06/22/2020 Colon Cancer Screening-FIT Discontinued 06/22/2020 Colon Cancer Screening-Sigmoidoscopy Discontinued 06/22/2020 Zoster Vaccine Completed 04/19/2021, 12/20/2020 Pneumococcal vaccine <65 Aged Out No longer eligible based on patient's age to complete this topic Procedures Procedure Name Priority Date/Time Associated Diagnosis Comments COLONOSCOPY 06/22/2020 8:00 AM COLLAR POINTER from Last 3 Months or Most Recently Relevant to Health Maintenance Results * COLONOSCOPY (06/22/2020 8:00 AM COLLAR POINTER) Anatomical Region Laterality Modality Other Narrative Procedure Note Devendra Miller MD - 06/22/2020 8:00 AM CST [facility] Patient Name: Jah Mane Procedure Date: 06/22/2020 8:00 AM Date of : 1965 Admit Type: Outpatient Age: 54 Gender: Male Attending MD: Devendra Miller M.D. Room: Procedure Room 3 Note Status: Finalized Patient Profile: This is a 54 year old male. No family history ofcolon cancer. Patient had history of fall polyps 5 yearsago. Procedure: Colonoscopy Indications: High risk colon cancer surveillance: Personalhistory of colonic polyps, Last colonoscopy: June 2015 Referring MD: Leoncio Chadwick M.D. Providers: Devendra Miller M.D. Impression: - One 7 mm polyp in the cecum, removed with a jumbo cold forceps. Resected and retrieved. - Internal hemorrhoids. Recommendation: - Await pathology results. - Repeat colonoscopy in 5 years for screeningpurposes. - Continue present medications. Medicines: Monitored Anesthesia Care Complications: No immediate complications. Estimated Blood Loss: Estimated blood loss: none. Procedure: Pre-Anesthesia Assessment: - Prior to the procedure, a History and Physical was performed, and patient medications and allergieswere reviewed. The patient's tolerance of previous anesthesia was also reviewed. The risks and benefitsof the procedure and the sedation options and riskswere discussed with the patient. All questions were answered, and informed consent was obtained. Prior Anticoagulants: The patient has taken no previous anticoagulant or antiplatelet agents. ASA Grade Assessment: II - A patient with mild systemicdisease. After reviewing the risks and benefits, the patientwas deemed in satisfactory condition to undergo the procedure. The benefits, risks and alternatives of theprocedure and sedation were discussed and informed consent was obtained. All questions were answered. Please referto the signed informed consent document in the medical record. Bowel prep was administered using a splitdose. The bowel preparation used was Miralax. The bowel preparation used was bisacodyl tablets. The scopewas passed under direct vision. The PediatricColonoscope PCF-H190L [id number] was introduced through the anusand advanced to the the cecum, identified by appendiceal orifice and ileocecal valve. The quality of thebowel preparation was excellent. Findings: The perianal and digital rectal examinations were normal. The appendiceal orifice appeared normal. A 7 mm polyp was found in the cecum. The polyp was sessile. The polyp was removed with a jumbo cold forceps. Resection and retrieval were complete. The ascending colon appeared normal. The transverse colon appeared normal. The descending colon appeared normal. The sigmoid colon was unremarkable. Internal hemorrhoids were found during retroflexion. The hemorrhoids were medium-sized. Electronically signed by Devendra Miller M.D. Devendra Miller M.D. 06/22/2020 9:08:42 AM Number of Addenda: 0 Note Initiated On: 06/22/2020 8:00 AM Procedure Code(s): --- Professional --- 93650, Colonoscopy, flexible; with biopsy, single or multiple Diagnosis Code(s): --- Professional --- Z86.010, Personal history of colonic polyps K64.8, Other hemorrhoids D12.0, Benign neoplasm of cecum CPT copyright 2017 [employer]. All rights reserved. The codes documented in this report are preliminary and upon final rail cutter reviewmay be revised to meet current compliance requirements. Recognized by the [employer] for promoting quality in endoscopy Devendra Miller MD ENDOSCOPY PROCEDURES Final Result from Last 3 Months or Most Recently Relevant to Health Maintenance Insurance [facility] Advance Directives For more information, please contact: [phone] * Full Code (Latest Code Status on File) Date Activated Date Inactivated Comments 06/22/2020 7:46 AM 06/22/2020 1:44 PM * Full Code Date Activated Date Inactivated Comments 06/22/2020 7:46 AM 06/22/2020 7:46 AM Care Teams Claim Approver Relationship Specialty Start Date End Date Leoncio Chadwick MD [address] [id number] PCP - General Family Medicine 02/23/20
--- OUTSIDE RECORDS SUMMARY | 2024-12-13 16:32 | XMS_ITS | Encounter Summary ---
Author Name [facility] Organization [facility] Address [address] [place] [address] Care Team Providers Care Automobile Service Station Attendant Name Role Phone MIRANDA GONZALES Primary Care Provider Nancy hurtado Selected Encounter This section includes the information on record at [place] for the Encounter. Date/Time Encounter Type Encounter Description Reason Provider Source Apr 11, 2024 09:30 AM OFFICE O/P EST MOD 30 MIN RHEUMATOLOGY/ARTHR ITIS ICD-10-CM [id number] Chronic gout, unspecified, without tophus (tophi) THERESA LOERA Encounter Template Text not used by [place] Assessments - Encounter Diagnoses This section includes the primary and secondary diagnoses documented for the Encounter. Date/Time Primary/Secondary Diagnosis Diagnosis Name Provider Source Apr 11, 2024 09:51 AM PRIMARY Chronic gout, unspecified, without [facility]phus (tophi) [facility] Apr 11, 2024 09:51 AM SECONDARY Chronic pain syndrome [facility] Apr 11, 2024 09:51 AM SECONDARY Low back pain, unspecified [facility] Apr 11, 2024 09:51 AM SECONDARY Vitamin D deficiency, unspecified [facility] Plan of Treatment: Future Appointments (+ 6 months) and Future Tests (+/- 45 days) The Plan of Treatment section includes future care activities for the patient from all [place] [facility] This section includes future appointments and future orders which are active, pending or scheduled. Future Appointments This section includes appointments that were scheduled to occur 6 months from the date of the Encounter, up to a maximum of 20 appointments. The data comes from all [place] treatment facilities. Appointment Date/Time Appointment Type Appointme nt Facility Name Aug 01, 2024 02:00 PM AMBULATORY - MEDICINE [facility] Aug 08, 2024 11:00 AM AMBULATORY - PSYCHIATRY [facility] Aug 08, 2024 03:00 PM AMBULATORY - SURGERY [facility] Aug 31, 2024 02:15 PM AMBULATORY - MEDICINE [facility] Lab Results: +/- 30 days of the encounter This section includes the Chemistry and Hematology Lab Results on record with [place] for the patient. Radiology Reports and Pathology Reports are provided separately, in subsequent sections. Lab Results This section contains the Chemistry/Hematology Results that were resulted 30 days before or 30 daysafter the date of the Encounter. Date/Time Source Result Type Result - Unit Interpretation Reference Range Specimen Type Comment Apr 11, 2024 10:11 AM [facility] URIC ACID PLASMA Specimen Type: PLASMA Comment: No hemolysis noted. Ordering Provider: GARRET DIAS Report Released Date/Time: Apr 11, 2024 09:38 AM Reporting Lab: [facility] [address] [facility] [address] Performing Lab: [facility] [address] [facility] [address] URIC ACID 8.5 mg/dL H 3.5-7.2 Apr 11, 2024 10:11 AM [facility] COMPREHENSIVE METABOLIC PANEL PLASMA Specimen Type: PLASMA Comment: No hemolysis noted. Ordering Provider: JS DIAS Report Released Date/Time: Apr 11, 2024 09:38 AM Reporting Lab: [place] [address] [facility] [address] Performing Lab: [place] [address] [facility] [place] [address] CREATININE 0.83 mg/dL 0.7-1.3 UREA NITROGEN 8.4 mg/dL L 9.0-25.0 GLUCOSE 98 mg/dL 72-99 SODIUM 140 meq/L 136-145 POTASSIUM 3.9 meq/L 3.5-5 CHLORIDE 107 meq/L 98-107 CARBON DIOXIDE 21 meq/L L 22-31 CALCIUM 9.8 mg/dL 8.4-10.4 PROTEIN 7.9 g/dL 6-8.6 ALBUMIN 4.8 g/dL 3.4-5 TOTAL BILIRUBIN 0.3 mg/dL 0.2-1.2 ALKALINE PHOSPHATASE 41 U/L 40-150 AST/SGOT 38 U/L H 5-34 ALT/SGPT 51 U/L H 8-40 EGFR (CKD-EPI 2020) 100.8 >60 Apr 11, 2024 10:11 AM [facility] VITAMIN D, 25-HYDROXY SERUM Specimen Type: SE RUM No comment entered. Ordering Provider: JS DIAS Report Released Date/Time: Apr 11, 2024 09:41 AM Reporting Lab: [address] [address] Performing Lab: [address] [address] VITAMIN D, 25-HYDROXY 27.2 ng/mL L 30-96 Apr 11, 2024 10:11 AM [facility] CBC BLOOD Specimen Type: BLOOD No comment entered. Ordering Provider: JS DIAS Report Released Date/Time: Apr 11, 2024 09:38 AM Reporting Lab: [address] [address] Performing Lab: [address] [address] WBC 5.4 10*3/uL 3.6-11.2 RBC 5.10 10*6/uL 4.10-5.70 HGB 15.1 g/dL 13.1-16.8 HCT 44.1 38.2-48.4 MCV 86.5 fL 80.0-100.0 MCH 29.6 pg 27.0-34.0 MCHC 34.2 g/dL 33.0-36.0 PLT 135 10*3/uL L 150-400 MPV 12.6 fL H 7.5-11.2 RDW 12.7 11.8-15.1 LYMPHOCYTES, AUTO % 32 MONOCYTES, AUTO % 7 NEUTROPHILS, AUTO % 60 EOSINOPHILS, AUTO % 1 BASOPHILS, AUTO % 0 LYMPHOCYTES, ABSOLUTE 1.71 10*3/uL 0.77- 4.50 MONOCYTES, ABSOLUTE 0.37 10*3/uL 0.19-0. 80 NEUTROPHILS, ABSOLUTE 3.27 10*3/uL 2.10- 8.00 EOSINOPHILS, ABSOLUTE 0.05 10*3/uL 0.00- 0.60 BASOPHILS, ABSOLUTE 0.01 10*3/uL 0.00-0. 20 Vital Signs: All taken on the encounter date This section contains inpatient and outpatient Vital Signs collected on the date of the Encounter. Date/Time Temperature Pulse Blood Pressure Respiratory Rate SP02 Pain Height Weight Body Mass Index Source Apr 11, 2024 09:19 AM 149/90 [facility] Apr 11, 2024 09:18 AM 98.9 75 158/100 16 97 5 256.9 34 [facility] Social History: Smoking Status (Most current) and Tobacco Use (All prior to encounter date) This section includes the most current, and the historical, smoking and tobacco- related health factors from the [place] facility where the Encounter took place. Current Smoking Status This section includes the most current smoking, or tobacco-related health factor, from the [place] facility where the Encounter took place. Date/Time Current Smoking Status Comment Kendall loredo Oct 01, 2022 02:00 PM LIFETIME NON-SMOKER [facility] Encounter Notes: All associated encounter notes This section contains the clinical notes associated to the Encounter. Date/Time Encounter Note(s) Provider Source Apr 11, 2024 10:16 AM ADDENDUM: LOCAL TITLE: Addendum STANDARD TITLE: ADDENDUM DATE OF NOTE: APR 11, 2024@10:16:55 ENTRY DATE: APR 11, 2024@10:16:56 AUTHOR: JOANNA SANTIAGO EXP COSIGNER: URGENCY: STATUS: COMPLETED Case discussed with the fellow, chart reviewed including labs and radiological findings. I discussed the case and reviewed the note created by the fellow, and agree in general with the data, synthesis, and plan as outlined in the fellow's note. /es/ Joanna Santiago MD PhD Staff Physician, Rheumatology Signed: 04/11/2024 10:17 Receipt Acknowledged By: 04/11/2024 11:54 /es/ BHANU LOERA MD Staff Physician - Rheumatology --- Original Document --- 04/11/24 RHEUMATOLOGY OUTPATIENT FOLLOW UP STL: Rheumatology Established HPI:Rafi Mane is a 58 years old M with a h/o HTN,HLD,DM,CHRISTA on CPAP,gout, who is here for a f/u. Interval history: At his last visit, we had discussed about treatment of fibromyalgia and ways to manage it. He was also concerned about frequent and recurrent gout attacks that got better with indomethacin use mainly in his toes. We discussed starting allopurinol and continue colchicine for 3 months on a daily dosage. However, he took it up until about 2 months ago and stopped it as he wanted to come off his meds. He continues to faithfully take his diabetes and hypertension meds but wanted to make sure he consolidate his list. He is willing to go back on his meds if he needs to. He really thinks he is making good progress with his health. He is walking on a daily basis. He believes his fibromyalgia is much better. He started to reuse his CPAP for better quality sleep. He is talking with [facility]. ROS: No fever, chills. No shortness of [...] BY MOUTH ONCE ACTIVE A DAY Labs: 04/2023: Stable, Uric acid 7.9 PHYSICAL EXAM: VITALS: Pulse: 75 (04/11/2024 09:18) BP: 149/90 (04/11/2024 09:19) Resp: 16 (04/11/2024 09:18) Temp: 98.9 F [37.2 C] (04/11/2024 09:18) Pain: 5 (04/11/2024 09:18) BMI: 34.0 Gen: Alert, oriented, in no acute distress No pallor, icterus No facial rash Chest: Clear to auscultation Abdomen: obese, soft, nontender Extremities: no edema MSK: No joint synovitis noted in b/l hands, Decreased ROM in b/l shoulder, no tenderness to palpation Bunion+ b/l 1st toe Decreased mobility of lumbar spine, kyphosis+ No spine TTP No elevated temperature or tenderness on joint palpation No muscle tenderness appreciated Power 5/5 both upper and lower extremity ASSESSEMENT AND PLAN: Mr. Mane is a 58 year old gentleman with a h/o gout, DM, HTN, HLD, CHRISTA, here for fu of multiple issues. #Chronic pain syndrome #Lumbar spondylosis: Lumbago with possible b/l sciatica #Post-traumatic osteoarthritis ----- -He is doing much better in this regard. He does not have generalized tenderness to palpation like he did in August with me. -Advised to continue PT, continue CPAP for good quality sleep, continue with mental health follow-up, continue with home health follow-up, continue with exercise, healthy diet, and also consider some low intensity exercises. -He does not wish to start duloxetine or any other medications for now. He believes his symptoms have been well-managed for a while and he continues to make progress. #Gout: nontophaceous Patient gives history of involvement of right ankle, right first toe, and right wrist? atleast more than 3 times a year.It lasts for about a week and self resolves. This has never been crystal proven. I started allopurinol with daily colchicine for 3 months on 08/2023. However he self discontinued it as he did not want to take many medications about 2 months ago. We discussed the importance of allopurinol for maintenance and colchicine for as needed prevention. -Will resume allopurinol 100 mg with daily colchicine 0.6 mg for post mobilization flare prophylaxis. -Uric acid, CBC, CMP today. -Patient has tolerated allopurinol in the past at 300mg doses so will not check [id number] at this time. Patient not taking statin recently. #Low vitamin D with elevated muscle enzymes -Will check vitamin D again today and replete as needed. FOLLOW-UP: 6 months, earlier as needed. Case discussed with Dr. Castellanos. /francine/ JS DIAS MD RHEUMATOLOGY FELLOW Signed: 04/11/2024 09:51 /francine/ Joanna Santiago MD PhD Staff Physician, Rheumatology Cosigned: 04/11/2024 10:16 JOANNA SANTIAGO [facility] Apr 11, 2024 09:20 AM RHEUMATOLOGY OUTPA TIENT NOTE: LOCAL TITLE: RHEUMATOLOGY OUTPATIENT FOLLOW UP ST STANDARD TITLE: RHEUMATOLOGY OUTPATIENT NOTE DATE OF NOTE: APR 11, 2024@09:20 ENTRY DATE: APR 11, 2024@09:21:06 AUTHOR: JS DIAS EXP COSIGNER: JOANNA SANTIAGO URGENCY: STATUS: COMPLETED RHEUMATOLOGY OUTPATIENT FOLLOW UP ST Has ADDENDA Rheumatology Established HPI:Rafi Mane is a 58 years old M with a h/o HTN,HLD,DM,CHRISTA on CPAP,gout, who is here for a f/u. Interval history: At his last visit, we had discussed about treatment of fibromyalgia and ways to manage it. He was also concerned about frequent and recurrent gout attacks that got better with indomethacin use mainly in his toes. We discussed starting allopurinol and continue colchicine for 3 months on a daily dosage. However, he took it up until about 2 months ago and stopped it as he wanted to come off his meds. He continues to faithfully take his diabetes and hypertension meds but wanted to make sure he consolidate his list. He is willing to go back on his meds if he needs to. He really thinks he is making good progress with his health. He is walking on a daily basis. He believes his fibromyalgia is much better. He started to reuse his CPAP for better quality sleep. He is talking with [facility]. ROS: No fever, chills. No shortness of [...] BY MOUTH ONCE ACTIVE A DAY Labs: 04/2023: Stable, Uric acid 7.9 PHYSICAL EXAM: VITALS: Pulse: 75 (04/11/2024 09:18) BP: 149/90 (04/11/2024 09:19) Resp: 16 (04/11/2024 09:18) Temp: 98.9 F [37.2 C] (04/11/2024 09:18) Pain: 5 (04/11/2024 09:18) BMI: 34.0 Gen: Alert, oriented, in no acute distress No pallor, icterus No facial rash Chest: Clear to auscultation Abdomen: obese, soft, nontender Extremities: no edema MSK: No joint synovitis noted in b/l hands, Decreased ROM in b/l shoulder, no tenderness to palpation Bunion+ b/l 1st toe Decreased mobility of lumbar spine, kyphosis+ No spine TTP No elevated temperature or tenderness on joint palpation No muscle tenderness appreciated Power 5/5 both upper and lower extremity ASSESSEMENT AND PLAN: Mr. Mane is a 58 year old gentleman with a h/o gout, DM, HTN, HLD, CHRISTA, here for fu of multiple issues. #Chronic pain syndrome #Lumbar spondylosis: Lumbago with possible b/l sciatica #Post-traumatic osteoarthritis ----- -He is doing much better in this regard. He does not have generalized tenderness to palpation like he did in August with me. -Advised to continue PT, continue CPAP for good quality sleep, continue with mental health follow-up, continue with home health follow-up, continue with exercise, healthy diet, and also consider some low intensity exercises. -He does not wish to start duloxetine or any other medications for now. He believes his symptoms have been well-managed for a while and he continues to make progress. #Gout: nontophaceous Patient gives history of involvement of right ankle, right first toe, and right wrist? atleast more than 3 times a year.It lasts for about a week and self resolves. This has never been crystal proven. I started allopurinol with daily colchicine for 3 months on 08/2023. However he self discontinued it as he did not want to take many medications about 2 months ago. We discussed the importance of allopurinol for maintenance and colchicine for as needed prevention. -Will resume allopurinol 100 mg with daily colchicine 0.6 mg for post mobilization flare prophylaxis. -Uric acid, CBC, CMP today. -Patient has tolerated allopurinol in the past at 300mg doses so will not check [id number] at this time. Patient not taking statin recently. #Low vitamin D with elevated muscle enzymes -Will check vitamin D again today and replete as needed. FOLLOW-UP: 6 months, earlier as needed. Case discussed with Dr. Castellanos. /francine/ JS DIAS MD RHEUMATOLOGY FELLOW Signed: 04/11/2024 09:51 /es/ Joanna Santiago MD PhD Staff Physician, Rheumatology Cosigned: 04/11/2024 10:16 04/11/2024 ADDENDUM STATUS: COMPLETED Case discussed with the fellow, chart reviewed including labs and radiological findings. I discussed the case and reviewed the note created by the fellow, and agree in general with the data, synthesis, and plan as outlined in the fellow's note. /francine/ Joanna Santiago MD PhD Staff Physician, Rheumatology Signed: 04/11/2024 10:17 Receipt Acknowledged By: 04/11/2024 11:54 /francine/ BHANU LOERA MD Staff Physician - Rheumatology 04/25/2024 ADDENDUM STATUS: COMPLETED Spoke to patient about labs. He will continue allopurinol. Uric acid 8.5. /francine/ JS DIAS MD RHEUMATOLOGY FELLOW Signed: 04/25/2024 13:22 /francine/ Joanna Santiago MD PhD Staff Physician, Rheumatology Cosigned: 04/25/2024 14:14 JS DIAS [facility]
--- OUTSIDE RECORDS SUMMARY | 2024-12-13 16:32 | XMS_ITS | Referral Summary ---
Author Organization [facility] Building [address] Address [address] [place] [address] Care Team Providers Care Power Lineworker Name Role Phone Leoncio Chadwick MD Primary [...] (03/21/2020): Added automatically from request for surgery [id number] Social History Tobacco Use Types Packs/Day Years Used Date Smoking Tobacco: Never Passive Smoke Exposure: Never Smokeless Tobacco: Never Tobacco Cessation:Counseling Given: Not Answered Sex and Gender Information Value Date Recorded Sex Assigned at Not on file Legal Sex Male 4:55 AM REPLENISHMENT SPECIALIST Gender Identity Not on file Sexual Orientation Not on file Last Filed Vital Signs Vital Sign Reading Time Taken Comments Blood Pressure 152/82 07/27/2024 2:21 PM REPLENISHMENT SPECIALIST Pulse 86 07/27/2024 2:21 PM REPLENISHMENT SPECIALIST Temperature 37.1 C (98.7 F) 07/27/2024 2:21 PM REPLENISHMENT SPECIALIST Respiratory Rate 18 07/27/2024 2:21 PM REPLENISHMENT SPECIALIST Oxygen Saturation 98% 07/27/2024 2:21 PM REPLENISHMENT SPECIALIST Inhaled Oxygen Concentration - - Weight 110.7 kg (244 lb) 07/27/2024 2:21 PM REPLENISHMENT SPECIALIST Height 185.4 cm (6' 1) 07/27/2024 2:21 PM REPLENISHMENT SPECIALIST Body Mass Index 32.19 07/27/2024 2:21 PM REPLENISHMENT SPECIALIST Plan of Treatment Not on file Procedures Procedure Name Priority Date/Time Associated Diagnosis Comments COLONOSCOPY 06/22/2020 8:00 AM REPLENISHMENT SPECIALIST from Last 3 Months or Most Recently Relevant to Health Maintenance Results * COLONOSCOPY (06/22/2020 8:00 AM REPLENISHMENT SPECIALIST) Anatomical Region Laterality Modality Other Narrative Procedure Note Devendra Miller MD - 06/22/2020 8:00 AM CST [facility] Patient Name: Jah Mane Procedure Date: [...] passed under direct vision. The PediatricColonoscope [id number] was introduced through the anusand advanced to [...] 8:00 AM Procedure Code(s): --- Professional --- 82759, Colonoscopy, flexible; with biopsy, single or multiple Diagnosis Code(s): --- Professional --- Z86.010, Personal history of colonic polyps K64.8, Other hemorrhoids D12.0, Benign neoplasm of cecum CPT copyright 2017 [employer]. All rights reserved. The codes documented in this report are preliminary and upon carbon coater machine operator reviewmay be revised to meet current compliance requirements. Recognized by the [employer] for promoting quality in endoscopy Devendra Miller MD ENDOSCOPY PROCEDURES Final Result from Last 3 Months or Most Recently Relevant to Health Maintenance Insurance [facility] Advance Directives For more information, please contact: [phone] * Full Code (Latest Code Status on File) Date Activated Date Inactivated Comments 06/22/2020 7:46 AM 06/22/2020 1:44 PM * Full Code Date Activated Date Inactivated Comments 06/22/2020 7:46 AM 06/22/2020 7:46 AM Care Teams Power Lineworker Relationship Specialty Start Date End Date Leoncio Chadwick MD [address] [address] PCP - General Family Medicine 02/23/20
--- OUTSIDE RECORDS SUMMARY | 2024-12-13 16:51 | XMS_ITS | Continuity of Care Document ---
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 [address] [facility] COMPREHEN SIVE METABOLIC PANEL CHLORIDE [MOLES/VOLU ME] IN SERUM OR PLASMA 107 meq/L 98 - 107 04/11 Specimen Type: PLASMA Comment: No hemolysis noted. Ordering Provider: SA DOUG DIAS Report Released Date/Time: Apr 11, 2024 09:38 AM Reporting Lab: [facility] [address] [facility] [address] Performing Lab: [address] [address] [facility] COMPREHEN SIVE METABOLIC PANEL CARBON DIOXIDE, TOTAL [MOLES/VOLU ME] IN SERUM OR PLASMA 21 meq/L 22 - 31 04/11 L Specimen Type: PLASMA Comment: No hemolysis noted. Ordering Provider: SA DOUG DIAS Report Released Date/Time: Apr 11, 2024 09:38 AM Reporting Lab: [facility] [address] [facility] [address] Performing Lab: [place] [address] [facility] [phone] [facility] COMPREHEN SIVE METABOLIC PANEL CALCIUM [MASS/VOLUM E] IN SERUM OR PLASMA 9.8 mg/dL 8.4 - 10.4 04/11 Specimen Type: PLASMA Comment: No hemolysis noted. Ordering Provider: SA DOUG DIAS Report Released Date/Time: Apr 11, 2024 09:38 AM Reporting Lab: [place] [address] [facility] [phone] Performing Lab: [place] [address] [facility] [phone] [facility] COMPREHEN SIVE METABOLIC PANEL PROTEIN [MASS/VOLUM E] IN SERUM OR PLASMA 7.9 g/dL 6 - 8.6 04/11 Specimen Type: PLASMA Comment: No hemolysis noted. Ordering Provider: SA DOUG DIAS Report Released Date/Time: Apr 11, 2024 09:38 AM Reporting Lab: [place] [address] [facility] [phone] Performing Lab: [place] [address] [facility] [phone] [facility] COMPREHEN SIVE METABOLIC PANEL ALBUMIN [MASS/VOLUM E] IN SERUM OR PLASMA 4.8 g/dL 3.4 - 5 04/11 Specimen Type: PLASMA Comment: No hemolysis noted. Ordering Provider: SA DOUG DIAS Report Released Date/Time: Apr 11, 2024 09:38 AM Reporting Lab: [place] [address] [facility] [phone] Performing Lab: [place] [address] [facility] [address] [facility] COMPREHEN SIVE METABOLIC PANEL BILIRUBIN.T OTAL [MASS/VOLUM E] IN SERUM OR PLASMA 0.3 mg/dL 0.2 - 1.2 04/11 Specimen Type: PLASMA Comment: No hemolysis noted. Ordering Provider: SA DOUG DIAS Report Released Date/Time: Apr 11, 2024 09:38 AM Reporting Lab: [facility] [address] [facility] [phone] Performing Lab: [facility] [address] [facility] [phone] [facility] COMPREHEN SIVE METABOLIC PANEL ALKALINE PHOSPHATASE [ENZYMATIC ACTIVITY/VO LUME] IN SERUM OR PLASMA 41 U/L 40 - 150 04/11 Specimen Type: PLASMA Comment: No hemolysis noted. Ordering Provider: SA DOUG DIAS Report Released Date/Time: Apr 11, 2024 09:38 AM Reporting Lab: [facility] [address] [facility] [phone] Performing Lab: [facility] [address] [facility] [phone] [facility] COMPREHEN SIVE METABOLIC PANEL ASPARTATE AMINOTRANSF ERASE [ENZYMATIC ACTIVITY/VO LUME] IN SERUM OR PLASMA 38 U/L 5 - 34 04/11 H Specimen Type: PLASMA Comment: No hemolysis noted. Ordering Provider: SA DOUG DIAS Report Released Date/Time: Apr 11, 2024 09:38 AM Reporting Lab: [facility] [address] [facility] [address] Performing Lab: [facility] [address] [facility] [address] [facility] COMPREHEN SIVE METABOLIC PANEL ALANINE AMINOTRANSF ERASE [ENZYMATIC ACTIVITY/VO LUME] IN SERUM OR PLASMA 51 U/L 8 - 40 04/11 H Specimen Type: PLASMA Comment: No hemolysis noted. Ordering Provider: SA DOUG DIAS Report Released Date/Time: Apr 11, 2024 09:38 AM Reporting Lab: [facility] [address] [facility] [address] Performing Lab: [facility] [address] [facility] [address] [facility] COMPREHEN SIVE METABOLIC PANEL GLOMERULAR FILTRATION RATE/1.73 SQ M.PREDICTED [VOLUME RATE/AREA] IN SERUM, PLASMA OR BLOOD BY CREATININE- BASED FORMULA (CKD-EPI 2020) 100.8 60 04/11 Specimen Type: PLASMA Comment: No hemolysis noted. Ordering Provider: SA DOUG DIAS Report Released Date/Time: Apr 11, 2024 09:38 AM Reporting Lab: [facility] [address] [place], [place] [phone] Performing Lab: [facility] [address] [place] [phone] URIC ACID URATE [MASS/VOLUM E] IN SERUM OR PLASMA 8.5 mg/dL 3.5 - 7.2 04/11 H Specimen Type: PLASMA Comment: No hemolysis noted. Ordering Provider: SA DOUG DIAS Report Released Date/Time: Apr 11, 2024 09:38 AM Reporting Lab: [facility] [address] [facility] [address] Performing Lab: [address] [phone] VITAMIN D, 25-HYDROX Y 25-HYDROXYV ITAMIN D3 [MASS/VOLUM E] IN SERUM OR PLASMA 27.2 ng/mL 30 - 96 04/11 L Specimen Type: SERUM No comment entered. Ordering Provider: SA DOUG DIAS Report Released Date/Time: Apr 11, 2024 09:41 AM Reporting Lab: [facility] [address] [facility] [address] Performing Lab: [facility] [address] [place] [phone] Chemistry Uric Acid 7.4 mg/dL 3.5 - 7.2 09/08 H [id number] th [facility] CPK CREATINE KINASE [ENZYMATIC ACTIVITY/VO LUME] IN SERUM OR PLASMA 573 U/L 30 - 200 08/11 H Specimen Type: PLASMA No comment entered. Ordering Provider: SA DOUG DIAS Report Released Date/Time: Aug 11, 2023 10:24 AM Reporting Lab: [facility] [address] [facility] [address] Performing Lab: [facility] [address] [facility] [phone] [facility] Chemistry eGFR CKD EPI 102 mL/min [...] mg/dL 8.4 - 10.2 07/30 N 375 [facility] Chemistry BUN/Creat Ratio 10 mg/dL 12 - 20 07/30 L -375 [facility] Chemistry Potassium Lvl 3.8 mmol/L 3.5 - 5.1 07/30 N 375 [facility] Chemistry Sodium 139 mmol/L 136 - 145 07/30 N 375 [facility] Chemistry Glucose Lvl 100 mg/dL 74 - 99 07/30 H [facility] Chemistry Creatinine Level 0.80 mg/dL 0.72 - 1.25 07/30 N 375 [facility] Chemistry ALT 40 U/L 5 - 55 07/30 N [facility] Chemistry Alk Phos 39 U/L 40 - 150 07/30 L -375 [facility] Chemistry AGAP 9.00 0.00 - 15.00 07/30 N [facility] Chemistry Albumin 4.30 g/dL 3.50 - 5.20 07/30 N [facility] Chemistry Protein Total 7.8 g/dL 6.4 - 8.3 07/30 N 375 [facility] Chemistry BUN 8 mg/dL 8 - 26 07/30 N 375 [facility] Chemistry AST 26 U/L 5 - 34 07/30 N [facility] Chemistry Bilirubin Total 0.5 mg/dL 0.2 - 1.2 07/30 N [facility] Chemistry HDL Cholesterol 54 mg/dL 40 - 59 07/30 N Interpretiv e Data: HDL (HIGH DENSITY LIPOPROTEIN ): ADULTS: Low: < 40 mg/dL High: >/= 60 mg/dL AGES 0 -19: Low: < 40 mg/dL Borderline Low: 40 - 45 mg/dL Acceptable: > 45 mg/dL [facility] Chemistry LDL 148 mg/dL 100 - 130 07/30 H Interpretiv e Data: AGES 0-19: Desirable: < 110 mg/dL Borderline High: 110-129 mg/dL High: >/= 130 mg/dL ADULTS: Desirable: <100 mg/dL Near/above optimal: 100-130 mg/dL Borderline High: 131-159 mg/dL High: 160-189 mg/dL Very High: 190 mg/dL [facility] Chemistry Chol/HDL 4 mg/dL 07/30 [facility] Chemistry Cholesterol Total 221 mg/dL 07/30 H Interpretiv e Data: According to the [place] [employer] : AGES 0-19: Desirable: < 170 mg/dL Borderline High: 170-199 mg/dL High Blood Cholesterol : >/= 200 mg/dL ADULTS: Desirable < 200 mg/dL Borderline High: 200-239 mg/dL High Blood Cholesterol : >/= 240 mg/dL [facility] Chemistry LDL/HDL 3 07/30 [facility] Chemistry Triglycerid es 154 mg/dL 7 - 149 07/30 H Interpretiv e Data: AGES 0-9: Desirable: < 75 mg/dL Borderline High: 75-99 mg/dL High: >/= 100 mg/dL AGES 10-19: Desirable: < 90 mg/dL Borderline High: 90-129 mg/dL High: >/= 130 mg/dL ADULTS: Desirable: < 150 mg/dL Borderline High: 150-199 mg/dL High: >/= 240 mg/dL Very High: >/= 500 mg/dL [facility]erto CBC LEUKOCYTES [#/VOLUME] IN BLOOD BY AUTOMATED COUNT 6.2 10*3/u L 3.6 - 11.2 04/21 Specimen Type: BLOOD No comment entered. Ordering Provider: SA DOUG DIAS Report Released Date/Time: Apr 21, 2023 09:59 AM Reporting Lab: [facility] [place] [phone] Performing Lab: [facility] [phone] [facility] CBC ERYTHROCYTE S [#/VOLUME] IN BLOOD BY AUTOMATED COUNT 5.23 10*6/u L 4.10 - 5.70 04/21 Specimen Type: BLOOD No comment entered. Ordering Provider: SA DOUG DIAS Report Released Date/Time: Apr 21, 2023 09:59 AM Reporting Lab: [facility] [place] [address] Performing Lab: [facility] CBC HEMOGLOBIN [MASS/VOLUM E] IN BLOOD 15.4 g/dL 13.1 - 16.8 04/21 Specimen Type: BLOOD No comment entered. Ordering Provider: SA DOUG DIAS Report Released Date/Time: Apr 21, 2023 09:59 AM Reporting Lab: [facility] [place] [address] Performing Lab: [facility] CBC HEMATOCRIT [VOLUME FRACTION] OF BLOOD 46.3 38.2 - 48.4 04/21 Specimen Type: BLOOD No comment entered. Ordering Provider: SA DOUG DIAS Report Released Date/Time: Apr 21, 2023 09:59 AM Reporting Lab: [facility] [place] [phone] Performing Lab: [facility] CBC MCV [ENTITIC VOLUME] BY AUTOMATED COUNT 88.5 fL 80.0 - 100.0 04/21 Specimen Type: BLOOD No comment entered. Ordering Provider: SA DOUG DIAS Report Released Date/Time: Apr 21, 2023 09:59 AM Reporting Lab: [facility] [phone] Performing Lab: [facility] [phone] DIVISION CBC MCH [ENTITIC MASS] BY AUTOMATED COUNT 29.4 pg 27.0 - 34.0 04/21 Specimen Type: BLOOD No comment entered. Ordering Provider: SA DOUG DIAS Report Released Date/Time: Apr 21, 2023 09:59 AM Reporting Lab: [facility] [place] [address] Performing Lab: [facility] [facility] [phone] [facility] CBC MCHC [MASS/VOLUM E] BY AUTOMATED COUNT 33.3 g/dL 33.0 - 36.0 04/21 Specimen Type: BLOOD No comment entered. Ordering Provider: SA DOUG DIAS Report Released Date/Time: Apr 21, 2023 09:59 AM Reporting Lab: [facility] [place] [address] Performing Lab: [facility] DIVISION CBC PLATELETS [#/VOLUME] IN BLOOD BY AUTOMATED COUNT 150 10*3/u L 150 - 400 04/21 Specimen Type: BLOOD No comment entered. Ordering Provider: SA DOUG DIAS Report Released Date/Time: Apr 21, 2023 09:59 AM Reporting Lab: [facility] [phone] Performing Lab: [facility] DIVISION CBC PLATELET MEAN VOLUME [ENTITIC VOLUME] IN BLOOD BY AUTOMATED COUNT 11.3 fL 7.5 - 11.2 04/21 H Specimen Type: BLOOD No comment entered. Ordering Provider: SA DOUG DIAS Report Released Date/Time: Apr 21, 2023 09:59 AM Reporting Lab: [facility] [place] [address] Performing Lab: [facility] [place] [phone] DIVISION CBC ERYTHROCYTE DISTRIBUTIO N WIDTH [RATIO] BY AUTOMATED COUNT 12.9 11.8 - 15.1 04/21 Specimen Type: BLOOD No comment entered. Ordering Provider: SA DOUG DIAS Report Released Date/Time: Apr 21, 2023 09:59 AM Reporting Lab: [facility] [place] [address] Performing Lab: [facility] DIVISION CBC LYMPHOCYTES /100 LEUKOCYTES IN BLOOD BY AUTOMATED COUNT 32 04/21 Specimen Type: BLOOD No comment entered. Ordering Provider: SA DOUG DIAS Report Released Date/Time: Apr 21, 2023 09:59 AM Reporting Lab: [facility] [place] [address] Performing Lab: [facility] DIVISION CBC MONOCYTES/1 00 LEUKOCYTES IN BLOOD BY AUTOMATED COUNT 4 04/21 Specimen Type: BLOOD No comment entered. Ordering Provider: SA DOUG DIAS Report Released Date/Time: Apr 21, 2023 09:59 AM Reporting Lab: [facility] [place] [address] Performing Lab: [facility] DIVISION CBC NEUTROPHILS /100 LEUKOCYTES IN BLOOD BY AUTOMATED COUNT 62 04/21 Specimen Type: BLOOD No comment entered. Ordering Provider: SA DOUG DIAS Report Released Date/Time: Apr 21, 2023 09:59 AM Reporting Lab: [facility] [phone] Performing Lab: [facility] [phone] [place] [address] DIVISION CBC EOSINOPHILS /100 LEUKOCYTES IN BLOOD BY AUTOMATED COUNT 1 04/21 Specimen Type: BLOOD No comment entered. Ordering Provider: SA DOUG DIAS Report Released Date/Time: Apr 21, 2023 09:59 AM Reporting Lab: [facility] [address] Performing Lab: [facility] [phone] DIVISION CBC BASOPHILS/1 00 LEUKOCYTES IN BLOOD BY AUTOMATED COUNT 0 04/21 Specimen Type: BLOOD No comment entered. Ordering Provider: SA DOUG DIAS Report Released Date/Time: Apr 21, 2023 09:59 AM Reporting Lab: [facility] [phone] Performing Lab: [facility] [phone] DIVISION CBC LYMPHOCYTES [#/VOLUME] IN BLOOD BY AUTOMATED COUNT 1.96 10*3/u L 0.77 - 4.50 04/21 Specimen Type: BLOOD No comment entered. Ordering Provider: SA DOUG DIAS Report Released Date/Time: Apr 21, 2023 09:59 AM Reporting Lab: [facility] [address] Performing Lab: [facility] [phone] DIVISION CBC MONOCYTES [#/VOLUME] IN BLOOD BY AUTOMATED COUNT 0.27 10*3/u L 0.19 - 0.80 04/21 Specimen Type: BLOOD No comment entered. Ordering Provider: SA DOUG DIAS Report Released Date/Time: Apr 21, 2023 09:59 AM Reporting Lab: [facility] [place] [address] Performing Lab: [facility] DIVISION CBC NEUTROPHILS [#/VOLUME] IN BLOOD BY AUTOMATED COUNT 3.86 10*3/u L 2.10 - 8.00 04/21 Specimen Type: BLOOD No comment entered. Ordering Provider: SA DOUG DIAS Report Released Date/Time: Apr 21, 2023 09:59 AM Reporting Lab: [facility] [place] [address] Performing Lab: [facility] DIVISION CBC EOSINOPHILS [#/VOLUME] IN BLOOD BY AUTOMATED COUNT 0.06 10*3/u L 0.00 - 0.60 04/21 Specimen Type: BLOOD No comment entered. Ordering Provider: SA DOUG DIAS Report Released Date/Time: Apr 21, 2023 09:59 AM Reporting Lab: [facility] [place] [address] Performing Lab: [facility] DIVISION CBC BASOPHILS [#/VOLUME] IN BLOOD BY AUTOMATED COUNT 0.02 10*3/u L 0.00 - 0.20 04/21 Specimen Type: BLOOD No comment entered. Ordering Provider: SA DOUG DIAS Report Released Date/Time: Apr 21, 2023 09:59 AM Reporting Lab: [facility] [place] [address] Performing Lab: [facility] DIVISION COMPREHEN SIVE METABOLIC PANEL CREATININE [MASS/VOLUM E] IN SERUM OR PLASMA 0.85 mg/dL 0.7 - 1.3 04/21 Specimen Type: PLASMA Comment: No hemolysis noted. Ordering Provider: SA DOUG DIAS Report Released Date/Time: Apr 21, 2023 09:59 AM Reporting Lab: [facility] [address] [facility] [phone] Performing Lab: [facility] [address] [facility] [phone] [facility] COMPREHEN SIVE METABOLIC PANEL UREA NITROGEN [MASS/VOLUM E] IN SERUM OR PLASMA 7.2 mg/dL 9.0 - 25.0 04/21 L Specimen Type: PLASMA Comment: No hemolysis noted. Ordering Provider: SA DOUG DIAS Report Released Date/Time: Apr 21, 2023 09:59 AM Reporting Lab: [facility] [address] [facility] [phone] Performing Lab: [place] [address] [facility] [phone] [facility] COMPREHEN SIVE METABOLIC PANEL GLUCOSE [MASS/VOLUM E] IN SERUM OR PLASMA 104 mg/dL 72 - 99 04/21 H Specimen Type: PLASMA Comment: No hemolysis noted. Ordering Provider: SA DOUG DIAS Report Released Date/Time: Apr 21, 2023 09:59 AM Reporting Lab: [facility] [address] [facility] [address] Performing Lab: [place] [address] [facility] [phone] [facility] COMPREHEN SIVE METABOLIC PANEL SODIUM [MOLES/VOLU ME] IN SERUM OR PLASMA 141 meq/L 136 - 145 04/21 Specimen Type: PLASMA Comment: No hemolysis noted. Ordering Provider: SA DOUG DIAS Report Released Date/Time: Apr 21, 2023 09:59 AM Reporting Lab: [place] [address] [facility] [address] Performing Lab: [facility] [address] [facility] [address] [facility] COMPREHEN SIVE METABOLIC PANEL POTASSIUM [MOLES/VOLU ME] IN SERUM OR PLASMA 4.4 meq/L 3.5 - 5 04/21 Specimen Type: PLASMA Comment: No hemolysis noted. Ordering Provider: SA DOUG DIAS Report Released Date/Time: Apr 21, 2023 09:59 AM Reporting Lab: [facility] [address] [facility] [address] Performing Lab: [facility] [address] [facility] [address] [facility] COMPREHEN SIVE METABOLIC PANEL CHLORIDE [MOLES/VOLU ME] IN SERUM OR PLASMA 105 meq/L 98 - 107 04/21 Specimen Type: PLASMA Comment: No hemolysis noted. Ordering Provider: SA DOUG DIAS Report Released Date/Time: Apr 21, 2023 09:59 AM Reporting Lab: [facility] [address] [facility] [address] Performing Lab: [facility] [address] [facility] [address] [facility] COMPREHEN SIVE METABOLIC PANEL CARBON DIOXIDE, TOTAL [MOLES/VOLU ME] IN SERUM OR PLASMA 24 meq/L 22 - 31 04/21 Specimen Type: PLASMA Comment: No hemolysis noted. Ordering Provider: SA DOUG DIAS Report Released Date/Time: Apr 21, 2023 09:59 AM Reporting Lab: [facility] [address] [facility] [address] Performing Lab: [facility] [address] [facility] [address] [facility] COMPREHEN SIVE METABOLIC PANEL CALCIUM [MASS/VOLUM E] IN SERUM OR PLASMA 9.8 mg/dL 8.4 - 10.4 04/21 Specimen Type: PLASMA Comment: No hemolysis noted. Ordering Provider: SA DOUG DIAS Report Released Date/Time: Apr 21, 2023 09:59 AM Reporting Lab: [facility] [address] [facility] [address] Performing Lab: [facility] [facility] [address] [facility] [address] [facility] COMPREHEN SIVE METABOLIC PANEL PROTEIN [MASS/VOLUM E] IN SERUM OR PLASMA 8.1 g/dL 6 - 8.6 04/21 Specimen Type: PLASMA Comment: No hemolysis noted. Ordering Provider: SA DOUG DIAS Report Released Date/Time: Apr 21, 2023 09:59 AM Reporting Lab: [place] [address] [place] [phone] Performing Lab: [place] [address] [facility] [address] [facility] COMPREHEN SIVE METABOLIC PANEL ALBUMIN [MASS/VOLUM E] IN SERUM OR PLASMA 4.7 g/dL 3.4 - 5 04/21 Specimen Type: PLASMA Comment: No hemolysis noted. Ordering Provider: SA DOUG DIAS Report Released Date/Time: Apr 21, 2023 09:59 AM Reporting Lab: [place] [address] [place] [phone] Performing Lab: [place] [address] [phone] COMPREHEN SIVE METABOLIC PANEL BILIRUBIN.T OTAL [MASS/VOLUM E] IN SERUM OR PLASMA 0.4 mg/dL 0.2 - 1.2 04/21 Specimen Type: PLASMA Comment: No hemolysis noted. Ordering Provider: SA DOUG DIAS Report Released Date/Time: Apr 21, 2023 09:59 AM Reporting Lab: [facility] [address] [place] [phone] Performing Lab: [place] [address] [facility] [phone] COMPREHEN SIVE METABOLIC PANEL ALKALINE PHOSPHATASE [ENZYMATIC ACTIVITY/VO LUME] IN SERUM OR PLASMA 45 U/L 40 - 150 04/21 Specimen Type: PLASMA Comment: No hemolysis noted. Ordering Provider: SA DOUG DIAS Report Released Date/Time: Apr 21, 2023 09:59 AM Reporting Lab: [address] [place] [address] Performing Lab: [place] [address] [facility] [address] [facility] COMPREHEN SIVE METABOLIC PANEL ASPARTATE AMINOTRANSF ERASE [ENZYMATIC ACTIVITY/VO LUME] IN SERUM OR PLASMA 39 U/L 5 - 34 04/21 H Specimen Type: PLASMA Comment: No hemolysis noted. Ordering Provider: SA DOUG DIAS Report Released Date/Time: Apr 21, 2023 09:59 AM Reporting Lab: [place] [address] [facility] [address] Performing Lab: [address] [address] [facility] COMPREHEN SIVE METABOLIC PANEL ALANINE AMINOTRANSF ERASE [ENZYMATIC ACTIVITY/VO LUME] IN SERUM OR PLASMA 49 U/L 8 - 40 04/21 H Specimen Type: PLASMA Comment: No hemolysis noted. Ordering Provider: SA DOUG DIAS Report Released Date/Time: Apr 21, 2023 09:59 AM Reporting Lab: [address] [address] Performing Lab: [place] [address] [facility] [address] [facility] COMPREHEN SIVE METABOLIC PANEL GLOMERULAR FILTRATION RATE/1.73 SQ M.PREDICTED [VOLUME RATE/AREA] IN SERUM, PLASMA OR BLOOD BY CREATININE- BASED FORMULA (CKD-EPI 2020) 100.7 60 04/21 Specimen Type: PLASMA Comment: No hemolysis noted. Ordering Provider: SA DOUG DIAS Report Released Date/Time: Apr 21, 2023 09:59 AM Reporting Lab: [address] [address] Performing Lab: [address] [address] [facility] CRP C REACTIVE PROTEIN [PRESENCE] IN SERUM OR PLASMA 0.1 mg/dL 0 - 0.5 04/21 Specimen Type: PLASMA Comment: No hemolysis noted. Ordering Provider: SA DOUG DIAS Report Released Date/Time: Apr 21, 2023 09:59 AM Reporting Lab: [address] [address] Performing Lab: [address] [address] [facility] URIC ACID URATE [MASS/VOLUM E] IN SERUM OR PLASMA 7.9 mg/dL 3.5 - 7.2 04/21 H Specimen Type: PLASMA Comment: No hemolysis noted. Ordering Provider: SA DOUG DIAS Report Released Date/Time: Apr 21, 2023 09:59 AM Reporting Lab: [address] [address] Performing Lab: [address] [address] [facility] Chemistry AGAP 11.00 0.00 - 15.00 04/06 [...] mg/dL 8 - 26 04/06 N 0055A-375 [facility] Chemistry Chloride 104 mmol/L 98 - 107 04/06 N 0055A-375 [facility] Chemistry Calcium 9.7 mg/dL 8.4 - 10.2 04/06 N [facility] Creatinine Level 0.80 mg/dL 0.72 - 1.25 04/06 N [facility] Chemistry CO2 26 mmol/L 22 - 29 04/06 N [facility] Chemistry Glucose Lvl 87 mg/dL 74 - 99 04/06 N [facility] Chemistry Potassium Lvl 3.8 mmol/L 3.5 - 5.1 04/06 N [facility] Chemistry Sodium 141 mmol/L 136 - 145 04/06 N [facility] Chemistry Protein Total 7.8 g/dL 6.4 - 8.3 04/06 N [facility] PSA Total 1.93 ng/mL 0.05 - 3.89 04/06 N Interpretiv e Data: This assay shows no biotin interferenc e in samples with biotin concentrati ons up to 1200 ng/mL. 0117A-AF- ASU-[facility] Chemistry Chol/HDL 3 mg/dL 04/06 [facility] Chemistry HDL Cholesterol 64 mg/dL 40 - 59 04/06 H Interpretiv e Data: HDL (HIGH DENSITY LIPOPROTEIN ): ADULTS: Low: < 40 mg/dL High: >/= 60 mg/dL AGES 0 -19: Low: < 40 mg/dL Borderline Low: 40 - 45 mg/dL Acceptable: > 45 mg/dL [facility] Chemistry Cholesterol Total 201 mg/dL 04/06 H Interpretiv e Data: According to the [place] [employer] : AGES 0-19: Desirable: < 170 mg/dL Borderline High: 170-199 mg/dL High Blood Cholesterol : >/= 200 mg/dL ADULTS: Desirable < 200 mg/dL Borderline High: 200-239 mg/dL High Blood Cholesterol : >/= 240 mg/dL [facility] Chemistry LDL 123 mg/dL 100 - 130 04/06 N Interpretiv e Data: AGES 0-19: Desirable: < 110 mg/dL Borderline High: 110-129 mg/dL High: >/= 130 mg/dL ADULTS: Desirable: <100 mg/dL Near/above optimal: 100-130 mg/dL Borderline High: 131-159 mg/dL High: 160-189 mg/dL Very High: 190 mg/dL [facility] Chemistry Triglycerid es 80 mg/dL 7 - 149 04/06 N Interpretiv e Data: AGES 0-9: Desirable: < 75 mg/dL Borderline High: 75-99 mg/dL High: >/= 100 mg/dL AGES 10-19: Desirable: < 90 mg/dL Borderline High: 90-129 mg/dL High: >/= 130 mg/dL ADULTS: Desirable: < 150 mg/dL Borderline High: 150-199 mg/dL High: >/= 240 mg/dL Very High: >/= 500 mg/dL [facility] Chemistry LDL/HDL 2 04/06 [facility] Chemistry eAvg Glucose 120 mg/dL 04/06 [facility] Chemistry Hemoglobin A1c 5.8 % 4.0 - [...] the patient and ordering Hemoglobin Electrophor esis. [facility] Chemistry eGFR CKD EPI 103 mL/min [...] decrease 15-29 Severe decrease <15 Kidney failure [facility] er[facility]erto Vital Signs Combined list of inpatient and outpatient Vital Signs from Department of Defense and Veterans Affairs, ranging from 12 months to all on record, depending upon the facility. Vital Sign Value Date Comments Source Blood Pressure Manual Automatic 08/04/2024 19:11:00 3831D-Am-I-[facility] Abhilash Mean Arterial Pressure, Calc 110 mm[Hg] 08/04/2024 19:11:00 6929W-Yk-L-375 Abhilash BP Site Left arm 08/04/2024 19:11:00 4397O-Ss-S-375Th Abhilash Respiratory Rate 16 br/min 08/04/2024 19:11:00 1658X-Jp-R-375Th [facility] Peripheral Pulse Rate 87 bpm 08/04/2024 19:11:00 3968R-Xh-Y-375Th [facility] Systolic Blood Pressure 167 mm[Hg] 08/04/19 25 19:11:00 0868L-Jk-K-375Th [facility] Diastolic Blood Pressure 82 mm[Hg] 025 19:11:00 5011V-Oo-M-375Th [facility] Blood Pressure Manual Automatic 04/03/2023 18:02:00 3518Q-Hy-J-375Th [facility] Systolic Blood Pressure 150 mm[Hg] 04/03/20 23 18:02:00 4429N-Wb-P-375Th [facility] Diastolic Blood Pressure 86 mm[Hg] 023 18:02:00 6363D-Ye-K-375Th [facility] Mean Arterial Pressure, Calc 107 mm[Hg] 04/03/2023 18:02:00 1911U-Rj-Z-375Th [facility] Peripheral Pulse Rate 83 bpm 04/03/2023 18:02:00 7164U-Wj-H-375Th [facility] BP Site Left arm 04/03/2023 18:02:00 6114R-Pp-J-375Th [facility] Mean Arterial Pressure, Calc 107 mm[Hg] 11/05/2023 13:12:00 8554R-Vt-V-375Th [facility] Systolic Blood Pressure 151 mm[Hg] 11/05/19 24 13:12:00 7709B-Mj-L-375Th [facility] Diastolic Blood Pressure 85 mm[Hg] 024 13:12:00 8311V-Sy-I-375Th [facility] Peripheral Pulse Rate 79 bpm 11/05/2023 13:12:00 4101S-Uw-A-375Th [facility] Blood Pressure Manual Automatic 04/17/2023 18:03:00 7337S-Ok-M-375Th [facility] BP Site Left arm 04/17/2023 18:03:00 6640H-Lr-G-375Th [facility] Respiratory Rate 16 br/min 04/17/2023 18:03:00 3197C-Vf-E-375Th [facility] Systolic Blood Pressure 158 mm[Hg] 04/17/20 23 18:03:00 4616Y-Dr-Y-375Th [facility] Diastolic Blood Pressure 91 mm[Hg] 023 18:03:00 7963X-Hv-Z-375Th [facility] Mean Arterial Pressure, Calc 113 mm[Hg] 04/17/2023 18:03:00 0644X-Lr-V-375Th [facility] Peripheral Pulse Rate 86 bpm 04/17/2023 18:03:00 2567Z-Yc-U-375Th [facility] BP Site Left arm 09/10/2023 20:49:00 0055A-375th [facility] Mean Arterial Pressure, Calc 94 mm[Hg] 09/10/2023 20:49:00 0055A-375th [facility] Peripheral Pulse Rate 83 bpm 09/10/2023 20:49:00 0055A-375th [facility] Blood Pressure Manual Automatic 09/10/2023 20:49:00 0055A-375th [facility] Systolic Blood Pressure 126 mm[Hg] 09/10/19 24 20:49:00 0055A-375th [facility] Diastolic Blood Pressure 78 mm[Hg] 024 20:49:00 0055A-375th [facility] Peripheral Pulse Rate 88 bpm 08/03/2023 21:26:00 9709M-Ga-I-375Th [facility] Mean Arterial Pressure, Calc 103 mm[Hg] 08/03/2023 21:26:00 1404T-Hn-F-375Th [facility] Systolic Blood Pressure 166 mm[Hg] 08/03/19 24 21:26:00 2579T-Zm-H-375Th [facility] Diastolic Blood Pressure 72 mm[Hg] 024 21:26:00 8059A-Ns-T-375Th [facility] BP Site Left arm 08/03/2023 21:26:00 8221W-Qa-J-375Th [facility] Blood Pressure Manual Automatic 08/03/2023 21:26:00 1772F-Xu-V-375Th [facility] Respiratory Rate 16 br/min 08/03/2023 21:26:00 7635B-Tr-F-375Th [facility] SYSTOLIC BLOOD PRESSURE 158 11/08/19 09:16:28 [facility] DIASTOLIC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 [address] [place] [address] [employer] [facility] Fam Res Tm Gold) [address] [place] [address])([facility] Fam Res Tm Gold) TELE CONSULT [id number] Notes Entered by: TRAMAINE CASAREZ 15 Sep 2014 1052 ------- ------- ------- ------- -- DME anilra l renewal request ed by Pt JULIO CASAREZ 09/15 Referred for Appointment [address] [place] [address])([facility] Fam Res Tm Gold) [address] [place] [address])([facility] FAMRES Tm Blue) TELE CONSULT [id number] Notes Entered by: MATTHEW COHEN 18 Sep 2014 1405 ------- ------- ------- ------- -- Network results - Roshnia sierra/Ariadne Shin 015 RENÉE TEJADA 09/[address] [place] [address])([facility]) [address] [place] [address])([facility] Fam Res Tm Gold) TELE CONSULT [id number] Notes Entered by: CHAD OLSON 05 Oct 2014 1052 ------- ------- ------- ------- -- Sx carmelina cordon ng in left leg; nurse advice Darin [phone] DWAYNE CORTEZ 10/05 Referred for Appointment [address] [place] [address])([facility] Fam Res Tm Gold) [address] [place] [address])([facility] Fam Res Tm Gold) OUTPATIENT [id number] follow up for infecti on in left foot; carmelina zhongas [facility] [phone] RENÉE TEJADA 10/24 Released w/o Limitations [address] [place] [address])([facility] Fam Res Tm Gold) [address] [place] [address])([facility] Fam Res Tm Gold) TELE CONSULT [id number] Notes Entered by: VANIA RICHEY 16 Mar 2015 1047 ------- ------- ------- ------- -- VEENA Valdez 03/16 Referred for Appointment [facility]S cott [facility] Fam Res Tm Gold) [address] [place] [address] Oneal [place] ([facility]Min or Procedure Clinic) OUTPATIENT [id number] 3rd floor [facility]/Pr eop clinic JEAN WEIR 03/27 Released w/o Limitations [address] [place] [address] One[place] ([facility]M inor Procedu re Clinic) [address] [place] [address] Group One[facility] [place] Procedure [place]) OUTPATIENT [id number] 2nd floor SAFB/sc JOSE Melendez 04/24 Released w/o Limitations [address] [place] [address] One[facility] [place] in[place] Procedu re Clinic) [address] [place] [address] One[facility] [place] Tm Blue) TELE CONSULT [phone] Notes Entered by: HEIKE RINCON 25 Apr 2015 1110 ------- ------- ------- ------- -- [facility] - HEIKE Campa 04/[address] [place] [address] Group Oneal LULAB INTEGRIS [facility] FAM[facility] Tm Blue) Medical Group Oneal [facility]co tt [facility] F[facility] Res Tm Gold) OUTPATIENT [id number] [facility] preempl oyment physica l [id number] JENNIFER RICHARDSON 05/04 Released w/o Limitations [address] [place] [address] [employer] [facility] [facility] Res Tm Gold) [facility] [employer] [facility]Sco tt [facility] Fam Res Tm Gold) OUTPATIENT [id number] f/u per doctor JENNIFER RICHARDSON 05/08 Released w/o Limitations [facility] Medical [facility] [employer] ([facility]S cott [facility] Fam Res Tm Gold) [address] [place] [address] [employer] ([facility]) OUTPATIENT [id number] Notes Entered by: EFREN BUITRAGO 09 May 2015 1057 ------- ------- ------- ------- -- PRE-EMP FLEXYMSEBASTIAN LOWE AM 05/09 Released w/o Limitations [address] [place] [address])([facility]) [address] [place] [address])([place] tt [facility] Fam Res Tm Gold) TELE CONSULT [id number] Notes Entered by: MURTAZA WILLIAMSON 02 Aug 2015 1625 ------- ------- ------- ------- -- Medicat ion Refill NAUN TEJEDA 08/02 Medication Refill Forwarded [address] [place] [address])(S cott [facility] Fam Res Tm Gold) [address] [place] [address])(Kyo tt Disease Managemen t) TELE CONSULT [id number] Notes Entered by: AMANDA GARCÍA 14 Aug 2015 1247 ------- ------- ------- ------- -- PCM [place] [id number] KAUSHAL GARCÍA 08/[address] [place] [address])(S cott Disease Managem ent) [address] [place] [address])(Sco tt [facility] Fam Res Tm Gold) OUTPATIENT [id number] F/U BP, test results CARMINA ARCOS 09/09 Released w/o Limitations [address] [place] [address])(S cott [facility] Fam Res Tm Gold) [address] [place] [address])([place] tt [facility] FAM[facility] Tm Blue) TELE CONSULT [id number] Notes Entered by: TYLER GALVEZ 13 Sep 2015 1437 ------- ------- ------- ------- -- labs JENNIFER RICHARDSON 09/[address] [place] [address])(S [facility] FAMRES Tm Blue) [address] [place] [address])([facility] Fam Res Tm Gold) TELE CONSULT [id number] Notes Entered by: Rosemarie HERNANDEZ 29 Nov 2015 0848 ------- ------- ------- ------- -- Med refill (Laboun ty) DWAYNE CORTEZ 11/28 Referred for Appointment [address] [place] [address])(S [facility] Fam Res Tm Gold) [address] [place] [address])([facility] Fam Res Tm Gold) TELE CONSULT [id number] Notes Entered by: Rosemarie HERNANDEZ 11 Dec 2015 1139 ------- ------- ------- ------- -- Rx refill (Laboun ty) CARMINA ARCOS 12/[address] [place] [address])([facility] Fam Res Tm Gold) [address] [place] [address])([facility] Fam Res Tm Gold) TELE CONSULT [id number] Notes Entered by: KALYN RUANO 27 Feb 2016 1515 ------- ------- ------- ------- -- Referra l renewal /Laboun ty/[phone] 3/[facility] NOA VÁSQUEZ 02/26 Other Not Elsewhere Classified [address] [place] [address])([facility] Fam Res Tm Gold) [address] [place] [address])(Med ication [facility]) TELE CONSULT [id number] Notes Entered by: DEJAH REYES 12 Mar 2016 1515 ------- ------- ------- ------- -- Med Bridge / Labount y / - sgj ASIA HARO 03/[address] [place] [address])([facility]) [address] [place] [address])([facility] Fam Res Tm Gold) OUTPATIENT [id number] F/U for blood pressur e / medicat ions [id number] CALIXTO DE LEON 03/24 Released w/o Limitations [address] [place] [address] Oneal [facility])(S [facility] Fam Res Tm Gold) [address] [place] [address] Oneal [facility])(Sco tt [facility] Res Tm Green) TELE CONSULT [id number] Notes Entered by: ARTURO CAMERON 04 Jun 2016 1505 ------- ------- ------- ------- -- Network Results Pulmona ry Sleep Medicin e 6 DH JENNIFER RICHARDSON 06/[address] [place] [address] Oneal [facility])(S [facility] Res Tm Green) [address] [place] [address] Oneal [facility])(Sco tt [facility] Res Green) TELE CONSULT [id number] Notes Entered by: EVAN COATES 02 Jul 2016 0925 ------- ------- ------- ------- -- Micare medicat ion refRENÉE La 07/02 Referred for Appointment [address] [place] [address] Oneal [facility])([facility] Res Tm Green) [address] [place] [address])(Sco [facility] Res Gold) OUTPATIENT [id number] F/U Blood presure and Lab Results [id number] LAQUITA PHAN 08/14 Released w/o Limitations [address] [place] [address] Oenal [facility])(S [facility] Fam Res Tm Gold) [address] [place] [address] Oneal [facility])([facility]) TELE CONSULT [id number] Notes Entered by: MADYSON ALEXANDERE P 30 Sep 2016 1610 ------- ------- ------- ------- -- Prescri ption DWAYNE Morris 09/30 Referred for Appointment [address] [place] [address] Oneal [facility])(S [facility] FAMRES Tm Blue) [address] [place] [address])(Sco tt [facility] Fam Res Tm Gold) OUTPATIENT [id number] follow up blood pressur e medicat ion LAQUITA PHAN 10/16 Released w/o Limitations [address] [place] [address] Oneal [facility])(S cott [facility] Fam Res Tm Gold) [address] [place] [address])(Sco tt [facility] Fam Res Tm Gold) TELE CONSULT [id number] Notes Entered by: BRANDAN PIZARRO 12 Nov 2016 0835 ------- ------- ------- ------- -- Network Results Pulmona ry Sleep Medicin e 7 JENNIFER SHI 11/[address] [place] [address])(S cott [facility] Fam Res Tm Gold) [address] [place] [address])(Sco tt [facility] FAM[facility] Tm Blue) TELE CONSULT [id number] Notes Entered by: KAROLYN BRITO 21 Apr 2017 1447 ------- ------- ------- ------- -- Medicat ion request TIFFANY SOTOMAYOR 04/[address] [place] [address])(S [facility] FAMRES Tm Blue) [address] [place] [address])(Sco tt [facility] Fam Res Tm Green) TELE CONSULT [id number] Notes Entered by: YU LENNON 27 Apr 2017 1042 ------- ------- ------- ------- -- Prescri ptASIA Burrows 04/[address] [place] [address])(S [facility] Fam Res Tm Green) [address] [place] [address])(Sco tt [facility] FAM[facility] Tm Blue) OUTPATIENT [id number] gout flare, right ankle / ERICA SANCHEZ 05/26 Released w/o Limitations [address] [place] [address])(S [facility] FAMRES Tm Blue) [address] [place] [address] [employer] [facility]) TELE CONSULT [id number] Notes Entered by: KOSTAS FLORES 10 Jun 2017 0950 ------- ------- ------- ------- -- Med KOSTAS Cruz 06/10 Other Not Elsewhere Classified [address] [place] [address] Oneal [facility]S [place] [facility] [employer] Tm Blue) [address] [place] [address] Oneal [facility]Sco tt [facility] Tm Blue) OUTPATIENT [id number] swollen right foot ERICA SANCHEZ 06/12 Released w/o Limitations [address] [place] [address] Oneal [facility] [facility] Tm Blue) [address] [place] [address] Oneal [facility] Tm Blue) OUTPATIENT [id number] Extreme pain in feet/L hand/wr ist/arm /R hand/kn ee/shou lder [id number] SMITH MALCOLM 07/07 Released w/o Limitations [address] [place] [address] Oneal [facility] [employer] Tm Blue) [address] [place] [address] Oneal [facility]Sco tt [facility] FAMInspire Commerce Tm Blue) TELE CONSULT [id number] Notes Entered by: RHONDA ACOSTA 08 Jul 2017 0831 ------- ------- ------- ------- -- Prescri ption issues/ Sotomayor/ /p LOULOU Sanchez 07/08 Referred for Appointment [address] [place] [address] Oneal [facility] [employer] Tm Blue) [address] [place] [address] Oneal [facility]Sco tt [facility] SU[facility]ENTA Tm Blue) TELE CONSULT [id number] Notes Entered by: Sai MALCOLM 08 Jul 2017 1302 ------- ------- ------- ------- -- Medicat ion order SMITH MALCOLM 07/[address] [place] [address] Oneal [facility]S [facility] [employer] [address] [place] [address] Oneal [facility]Sco tt [facility]) TELE CONSULT [id number] Notes Entered by: KALYN RUANO 17 Jul 2017 0821 ------- ------- ------- ------- -- Handica p Aaron quintero Paperwo jose cruz/Gianna francis/[phone] 9/clm LOULOU DODD 07/17 Referred for Appointment [address] [place] [address] Oneal [facility]) [address] [place] [address] Oneal [facility]Sco tt [facility]) OUTPATIENT [id number] f/u on gout for hand and foot - [id number] SMITH MALCOLM 09/08 Released w/o Limitations [address] [place] [address] Oneal [facility]) [address] [place] [address] Oneal [facility]Sco tt [facility]) TELE CONSULT [id number] Notes Entered by: JALIL PICKARD A 22 Dec 2017 1003 ------- ------- ------- ------- -- Med Bridge Request / Bran/ [phone] - RENÉE Renee 12/22 Medication Refill Forwarded [address] [place] [address] Oneal [facility]S [facility] [employer] [address] [place] [address] Oneal [facility]Sco tt [facility] [employer] OUTPATIENT [id number] F/U Labs, Med Renewal , Bilat Feet- R Hand Gout issues ROLANDO LINDA 12/24 Released w/o Limitations [address] [place] [address] Oneal [facility]S [facility] [employer] [address] [place] [address] Oneal [facility]) OUTPATIENT [id number] Notes Entered by: LYNNETTE ARCHIBALD 15 Jan 2018 1228 ------- ------- ------- ------- -- Low Tyramin e Diet CRISTELALYNNETTE S 01/15 Released w/o Limitations [address] [place] [address] Oneal [facility])(N utritio nal Medicin e) [address] [place] [address] Oneal [facility])(Sco tt [facility] Fam Res Tm Green) TELE CONSULT [id number] Notes Entered by: SUJIT LINDA 18 Jan 2018 1034 ------- ------- ------- ------- -- Appt and labs ELIZABETH BIRD 01/18 Referred for Appointment [address] [place] [address] Oneal [facility]S cott [facility] Res Tm Green) [address] [place] [address] Oneal [facility])([facility] Blue) TELE CONSULT [id number] Notes Entered by: Leah MCKEE 03 May 2018 1349 ------- ------- ------- ------- -- Renewal referra l Pulmono logy and DME Cpap once place please give custome r a call DWAYNE CORTEZ 05/03 Referred for Appointment [address] [place] [address] Oneal [facility])(S cott [facility] FAM[facility] Tm Blue) [address] [place] [address] Oneal [facility])(Sco tt [facility] DogiRES Tm Blue) OUTPATIENT [id number] gout flare up JOSE MILLER 06/24 Released w/o Limitations [address] [place] [address] Oneal [facility])(S cott [facility] FAM[facility] Tm Blue) [address] [place] [address] Oneal [facility])(Sco tt [facility] Tm Blue) TELE CONSULT [id number] Notes Entered by: KURT NATION 04 Jan 2019 1143 ------- ------- ------- ------- -- Med refill/ bran/ WILLIAM Palma 01/04 Referred for Appointment [address] [place] [address] Oneal [facility]S cott [facility] FAM[facility] Tm Blue) [address] [place] [address] Oneal [facility])(Sco tt [facility] FAMRES Tm Blue) OUTPATIENT [id number] Blood pressur e f/u,[phone] LIANG MCIHAEL D 04/04 Released w/o Limitations [address] [place] [address] Oneal [facility] Blue) [address] [place] [address] Oneal [facility]Sco tt [facility]) OUTPATIENT [id number] Virtual - L Foot painful swollen -Pt states Gout flare up WESLEY MARTINEZ 01/02 Released w/o Limitations [address] [place] [address] Oneal SRI [facility] Blue) [address] [place] [address] Oneal [facility])(Sco tt [facility]) OUTPATIENT [id number] RX EVAL EXAM [phone] IN PERSON APPT ESMER MUNGUIA 02/15 Released w/o Limitations [address] [place] [address] Oneal [facility]S [facility] Blue) [address] [place] [address] Oneal [facility])(Sco tt [facility]) TELE CONSULT [id number] Notes Entered by: EVAN MUNGUIA 28 Feb 2020 1750 ------- ------- ------- ------- -- Lab results and need for appoint LIZA Mcdaniel 02/27 Referred for Appointment [address] [place] [address] Oneal LULARosemarie [facility]) [address] [place] [address] Oneal [facility])(Sco tt [facility]) OUTPATIENT [id number] in person appt/DM follow up JANI SANTOS 02/28 Released w/o Limitations [address] [place] [address] Oneal LULARosemarie [facility]) [address] [place] [address] Oneal [facility])([facility]) OUTPATIENT [id number] Type 2 diabete s mellitu s without complic ations LYNNETTE ARCHIBALD 03/08 Released w/o Limitations [address] [place] [address] Oneal LULAB [facility]N utritio nal Medicin e) [address] [place] [address] Oneal [facility])(Sco tt Disease Managemen t) TELE CONSULT [id number] Notes Entered by: Rosemarie GLEASON 08 Mar 2020 1548 ------- ------- ------- ------- -- Disease Managem ent FAMILIA GLEASON 03/08 Referred for Appointment [address] [place] [address])(S cott Disease Managem ent) [address] [place] [address])(Sco tt Disease Managemen t) OUTPATIENT [id number] Notes Entered by: MANDI BOND 29 Mar 2020 1135 ------- ------- ------- ------- -- Diabete s educati on SUSI HOLLAND 03/29 Released w/o Limitations [address] [place] [address])(S cott Disease Managem ent) [address] [place] [address])(Sco tt Disease Managemen t) TELE CONSULT [id number] Notes Entered by: MANDI BOND 06 Apr 2020 1140 ------- ------- ------- ------- -- Diabeti c F/u SUSI HOLLAND 04/06 Released to Self Care [address] [place] [address])(S cott Disease Managem ent) [address] [place] [address])(Sco tt [facility] FAMRES Tm Blue) TELE CONSULT [id number] Notes Entered by: KURT NATION 23 May 2020 1115 ------- ------- ------- ------- -- lab request /sotomayor /[phone] WILLIAM Palma 05/23 Released to Self Care [address] [place] [address])(S cott [facility] FAM[facility] Tm Blue) [address] [place] [address])(Sco tt [facility] FAMRES Tm Blue) OUTPATIENT [id number] f/u appt/di scuss lab results /in person [phone] JOSE DE JESUS GARCIA 05/30 Released w/o Limitations [address] [place] [address])(S cott [facility] FAMRES Tm Blue) [address] [place] [address] Oneal [facility])(Sco tt [facility] [employer] Tm Blue) TELE CONSULT [id number] Notes Entered by: PILAR TURNER 17 Dec 2020 0905 ------- ------- ------- ------- -- Lab Request /Bran / WILLIAM BOYD 12/17 Released to Self Care [address] [place] [address] Oneal [facility]S [facility] DogiRES Tm Blue) [address] [place] [address] Oneal [facility])([facility] Tm Blue) OUTPATIENT [id number] F2F - F/u on diabete s, JOANNA OCAMPO 12/19 Released w/o Limitations [address] [place] [address] Oneal [facility] [employer] Tm Blue) [address] [place] [address] Oneal [facility])(Sco tt [facility] Tm Blue) TELE CONSULT [id number] Notes Entered by: HIMANSHU AGARWAL 01 Apr 2021 1024 ------- ------- ------- ------- -- Labs PRATEEK AGARWAL 04/01 Other Not Elsewhere Classified [address] [place] [address] Oneal [facility])(S cott [facility] Tm Blue) [address] [place] [address] Oneal [facility])(Sco tt [facility] Tm Blue) TELE CONSULT [id number] Notes Entered by: GENEVIEVE PITTMAN 02 Apr 2021 1312 ------- ------- ------- ------- -- F/u DIEGO DUMONT 04/02 Referred for Appointment [address] [place] [address] Oneal [facility]S cott [facility] FAMRES Tm Blue) [address] [place] [address] Oneal [facility])(Sco tt [facility] [employer] Tm Blue) OUTPATIENT [id number] Blood Pressur e f/u and Med refills BILL MARRERO 04/11 Released w/o Limitations [address] [place] [address] Oneal [facility]S cott [facility] FAMRES Tm Blue) [address] [place] [address] Oneal [facility])(Sco tt [facility] DogiRES Tm Blue) TELE CONSULT [id number] Notes Entered by: SALOMÓN GERARDO 15 Jan 2022 0736 ------- ------- ------- ------- -- Med Vipul/ Joseph/ CANDIDO MORRISON 01/[address] [place] [address] Oneal [facility]S [facility] FAMRES Tm Blue) [address] [place] [address] Oneal [facility]Sco tt [facility] DogiRES Tm Blue) OUTPATIENT [id number] F2F F/U Blood Pressur e/ Diabete s CALIXTO FRANKLIN 02/26 Released w/o Limitations [address] [place] [address] Oneal [facility])(S cott [facility] DogiRES Tm Blue) [address] [place] [address])(Sco tt [facility] [employer] Tm Blue) TELE CONSULT [id number] Notes Entered by: PILAR TURNER 15 Aug 2022 0946 ------- ------- ------- ------- -- Sx - Gout flare-u p/Nwoko norma/314 .243.54 39 BERNADETTE GONZALEZ 08/15 Referred for Appointment [address] [place] [address] Oneal [facility]S cott [facility] FAMRES Tm Blue) [address] [place] [address] Oneal [facility]Sco tt [facility] Fam Res Tm Green) OUTPATIENT [id number] Virtual for gout flare DOMENICO BRADY 08/15 Released w/o Limitations [address] [place] [address] Oneal [facility]S cott [facility] Fam Res Tm Green) [address] [place] [address] Oneal [facility]Sco tt [facility] FAMRES Tm Blue) OUTPATIENT [id number] F2F - f/u on BP, Gout, med renewal s, ALCIRA VASQUEZ 09/19 Released w/o Limitations [facility] Oneal [facility]ERRO [facility]S jared [facility] FAM[facility] Tm Blue) [facility] PSYTX W PT 60 MINUTES 44044-3.65 [id number] Diagnos is: ICD-10- CM F43.9 Reactio n to severe stress, unspeci fied AXEL,WAR TIERRA G III 07/23 [facility] OFF[facility] O/P EST LOW 20 MIN 79272-4.65 [id number] Diagnos is: ICD-10- CM L29.8 Other pruritu s YVONNE OLIVAS 08/10 [facility] OFFICE O/P EST MOD 30 MIN 55208-4.65 [id number] Diagnos is: ICD-10- CM M54.51 Vertebr ogenic low back pain RADHA BARNES 08/11 [facility] PSYTX W PT 60 MINUTES 25814-2.65 [id number] Diagnos is: ICD-10- CM Z91.49 Oth persona l history of psychol ogical trauma, NEC AXEL,WAR TIERRA G III 08/13 [facility] OFFICE O/P EST MOD 30 MIN 78923-1.65 [id number] Diagnos is: ICD-10- CM G43.B0 Ophthal moplegi c migrain e, not intract able REBECCAVELeah CRUZ 08/17 [facility] PSYTX W PT 30 MINUTES 88236-0.65 [id number] Diagnos is: ICD-10- CM G89.4 Chronic pain syndrom e Rosemarie CASTELLON 08/19 [facility] OFFICE O/P EST HI 40 MIN 01792-1.65 [id number] Diagnos is: ICD-10- CM G43.101 Migrain e with aura, not intract able, with status migrain ALLEY Rush Kaylee 09/[address] [facility] SENSORY INTEGRATIO N 12517-1.65 [id number] Diagnos is: ICD-10- CM H54.3 Unquali fied visual loss, both eyes JORJE LOPEZ 09/[address] [facility] PSYTX W PT 60 MINUTES 74365-0.65 [id number] 382 Diagnos is: ICD-10- CM F43.9 Reactio n to severe stress, unspeci fied AXEL,WAR TIERRA G III 10/07 [facility] IVNTJ GRP EA ADDL 92732-1.65 [id number] Diagnos is: ICD-10- CM G89.4 Chronic pain syndrom e Rosemarie CASTELLON 10/26 [facility] IVNTJ GRP EA ADDL 26353-3.65 [id number] Diagnos is: ICD-10- CM G89.4 Chronic pain syndrom e Rosemarie CASTELLON 11/02 [facility] IVNTJ GRP EA ADDL 07375-9.65 [id number] 492 Diagnos is: ICD-10- CM G89.4 Chronic pain syndrom e Rosemarie CASTELLON 11/[address] [facility] PSYTX W PT 60 MINUTES 88430-3.65 [id number] 492 Diagnos is: ICD-10- CM Z91.49 Oth persona l history of psychol ogical trauma, NEC AXEL,WAR TIERRA G III 11/11 [facility] IVNTJ GRP EA ADDL 60463-8.65 [id number] Diagnos is: ICD-10- CM G89.4 Chronic pain syndrom e CASTELLONRosemarie RITTANY J 11/16 [facility] IVNTJ GRP EA ADDL 70787-1.65 [id number] Diagnos is: ICD-10- CM G89.4 Chronic pain syndrom e Rosemarie CASTELLON RITTANY J 11/23 [facility] IVNTJ GRP EA ADDL 04314-1.65 [id number] Diagnos is: ICD-10- CM G89.4 Chronic pain syndrom e Rosemarie CASTELLON RITTANY J 12/07 [facility] IVNT GRP EA ADDL 63416-0.65 [id number] Diagnos is: ICD-10- CM G89.4 Chronic pain syndrom e Rosemarie CASTELLON RITTANY J 12/14 [facility] IVNT GRP EA ADDL [id number] Diagnos is: ICD-10- CM G89.4 Chronic pain syndrom e CASTELLONRosemarie RITTANY J 12/21 [facility] SENSORY INTEGRATIO N 91715-9.65 [id number] Diagnos is: ICD-10- CM H54.3 Unquali fied visual loss, both eyes JORJE LOPEZ 12/[address] [facility] PSYTX W PT 60 MINUTES 27429-6.65 [id number] Diagnos is: ICD-10- CM F43.9 Reactio n to severe stress, unspeci fied AXLE,KAYLIN Ceja III 12/30 [facility] OFF/OP EST MAY X REQ PHY/QHP [id number] Diagnos is: ICD-10- CM Z71.89 Other specifi ed residential treatment counselor KANWAL Crouch 01/25 [facility] OFFICE O/P EST MOD 30 MIN [id number] [id number] Diagnos is: ICD-10- CM G89.4 Chronic pain syndrom e MIRANDA GONZALES 01/31 [facility] PSYTX W PT 60 MINUTES 92853-0.65 [id number] Diagnos is: ICD-10- CM F43.9 Reactio n to severe stress, unspeci fied KAYLIN REYNA III 02/03 [facility] OFFICE O/P EST LOW 20 MIN 37981-3.65 [id number] Diagnos is: ICD-10- CM G43.B0 Ophthal moplegi c migrain e, not intract able Leah AKINS 02/07 [facility] Outpatient Encounter [id number] 02/08 [facility] En[facility] [id number] KAYLIN REYNA III 03/03 [facility] PSYTX W PT 60 MINUTES [id number] [id number] Diagnos is: ICD-10- CM F43.9 Reactio n to severe stress, unspeci fied KAYLIN REYNA III 03/17 [facility] N [facility] OFFICE O/P EST MOD 30 MIN [id number] [id number] Diagnos is: ICD-10- CM M1A.9XX 0 Chronic gout, unspeci fied, without tophus (tophi) FAMILIA MUJICABHA 04/11 [facility] N 5A-375 th [facility] eriberto Outpatient [id number] АННА N 07/29 Discharge Disposition: Home or Self Care 5A-3 [facility] Outpatient Encounter [id number] [id number] 08/01 [facility]P EST MOD 30 MIN [id number] [id number] Diagnos is: ICD-10- CM G89.4 Chronic pain syndrom e MIRANDA GONZALES 08/01 [facility] 61C-Af- C-375 [facility] er[facility]erto Clinic [id number] Encount er for screeni ng for maligna nt neoplas m of colon,P roteinu sabiha, unspeci fied,Es sential (primar y) hyperte nsion,E ncounte r for general adult medical examina tion without abnorma l finding s АННА N 08/04 Discharge Disposition: Home or Self Care 30C-A f-C-375 [facility] 6129C-Af- C-375 [facility] eriberto Between Visit [id number] 08/04 Discharge Disposition: Home or Self Care 30C-A f-C-375 [facility] DIVISION FAMILY PSYTX W/PT 50 MIN [id number] [id number] Diagnos is: ICD-10- CM Z63.0 Problem s in relatio nship with spouse or partner MURTAZA MARTINEZ 08/08 [facility] N [facility] [place] 1 70095-5.65 [id number] Diagnos is: ICD-10- CM G43.E19 Chronic migrain e with aura, intract able, without stat migr SOULEYMANE RODRIGUEZ Sai 08/08 [facility] OFFICE O/P EST MOD 30 MIN 40003-0.65 [id number] Diagnos is: ICD-10- CM L20.89 Other atopic dermati tis ANU PATEL 08/31 [facility] Outpatient Encounter [id number] [id number] 09/20 [facility] 6130C-Af- C-375Th Medgrp-Sc eriberto Between Visit [id number] Type 2 diabete s mellitu s without complic ations 10/04 Discharge Disposition: Home or Self Care 6130C-A f-C-375 [facility] 6130C-Af- C-375Th Medgrp-Sc eriberto Between Visit [id number] 10/19 Discharge Disposition: Home or Self Care 6130C-A f-C-375 Th Medgrp- Oneal [facility] OFFICE O/P EST MOD 30 MIN 52631-3.65 [id number] Diagnos is: ICD-10- CM M1A.9XX 0 Chronic gout, unspeci fied, without tophus (tophi) NATASHA SANTIAGO 11/07 [facility] Outpatient Encounter [id number] 11/09 [facility] [...] individual not meeting criteria for high risk [address] [place] [address] [facility] Colonoscopy, flexible, proximal to splenic flexure; diagnostic, with or without collection of specimen(s) by brushing or washing, with or without colon decompre ion (separate procedure) Colonoscopy, flexible, proximal to splenic flexure; diagnostic, with or without collection of specimen(s) by brushing or washing, with or without colon decompression (separate procedure) [address] [place] [address]-S [facility] Foot examination performed (includes examination through visual inspection, sensory exam with monofilament, and pulse exam report when any of the three components are completed) Foot examination performed (includes examination through visual inspection, sensory exam with monofilament, and pulse exam report when any of the three components are completed) 2027F [address] [place] [address]-S jared DESTRUCTION (EG, LASER SURGERY, ELECTROSURGERY, CRYOSURGERY, CHEMOSURGERY, SURGICAL CURETTEMENT), PREMALIGNANT LESIONS (EG, ACTINIC KERATOSES); FIRST LESION 004 [facility] WAIVER SERVICES; NOT OTHERWISE SPECIFIED (NOS) 023 [facility] TELE ASSESS & MGT SRV PROV QUAL [...] 24 HR/SOON APT;5-10 MIN MED DIS 018 [facility] MEDICAL NUTRITION THERAPY; INITIAL ASSESSMENT AND INTERVENTION, INDIVIDUAL, MZPN-DO-JMOR WITH THE PATIENT, EACH 15 MINUTES [facility] INJECTION, METHYLPREDNISOLONE SODIUM SUCCINATE, UP TO 125 MG [facility] DISEASE MANAGEMENT PROGRAM, FOLLOW-UP/REASSESSMENT 017 DoD TELE [...] MEMBER FOR MONITORING PURPOSES; PER MONTH 016 [facility] ONLINE ASSESS &MANAG SERV PROVIDE,A QUAL NONPHYS HCP TO AN ESTABLISHED PAT/GUARDIAN,NOT ORIGINAT FRM RELAT ASSESS &MANAG SERV PROVIDE W/IN THE PREV 7 DAYS,USE THE [employer] 016 [facility] COLORECTAL CANCER SCREENING; COLONOSCOPY ON INDIVIDUAL NOT [...] MANIPULATIVE TREATMENT (CMT); SPINAL, 3-4 REGIONS 008 [facility] CHIROPRACTIC MANIPULATIVE TREATMENT (CMT); SPINAL, 1-2 REGIONS 008 DoD APPLICATION OF A MODALITY TO 1 OR MORE AREAS; HOT OR COLD PACKS 008 [facility] CHIROPRACTIC MANIPULATIVE TREATMENT (CMT); SPINAL, 3-4 REGIONS 008 DoD APPLICATION OF A MODALITY TO 1 OR MORE AREAS; ELECTRICAL STIMULATION (UNATTENDED) 008 [facility] CHIROPRACTIC MANIPULATIVE TREATMENT (CMT); SPINAL, 3-4 REGIONS [...] GROUP (2 OR MORE INDIVIDUAL(S)), EACH MINUTES [facility] INJECTION, ADENOSINE FOR THERAPEUTIC USE, 6 MG (NOT TO BE USED TO REPORT ANY ADENOSINE PHOSPHATE COMPOUNDS, INSTEAD USE [id number]) [facility] INJECTION, KETOROLAC TROMETHAMINE, PER 15 MG [facility] OTHER CARDIOVASCULAR STRESS TEST [facility] DIAGNOSTIC ULTRASOUND OF HEART [facility] CARDIOVASCULAR STRESS TEST USING MAXIMAL OR SUBMAXIMAL TREADMILL OR BICYCLE EXERCISE,CONTINUOUS ELECTROCARDIOGRAPHIC MONITORING,AND/OR PHARMACOLOGICAL STRESS;W SUPERVISION,INTERPRETAT ION AND REPORT [facility] INFUSION, NORMAL SALINE SOLUTION, 250 CC [facility] Modalities Heat Hot Packs Modalities Heat Hot Packs 78472 007 KITTY MIRANDA Modalities Electrical Stimulation Unattended Modalities Electrical Stimulation Unattended 38047 007 KITTY MIRANDA Modalities Heat Hot Packs Modalities Heat Hot Packs 25661 007 KITTY MIRANDA Chiropractic Manip Treatmt (CMT) Spinal One To Two Regions Chiropractic Manip Treatmt (CMT) Spinal One To Two Regions [address] Supervised Injection Intramuscular Supervised Injection Intramuscular 93616 005 LUIS ENRIQUE GUPTA [facility] Injection, ketorolac tromethamine, per 15 mg 005 LUIS ENRIQUE GUPTA Cardiac Stre Test, Phys. Supervision, Interp. And Report Cardiac Stress Test, Phys. Supervision, Interp. And Report 07382 005 NAOMI SHIN [facility] Non-Physician Phone Call To Patient/Provider Brief (5-10min) Non-Physician Phone Call To Patient/Provider Brief (5-10min) 21696 018 ELIZABETH BIRD [facility] Medical Nutrition Therapy Initial A e ment, Intervention Medical Nutrition Therapy Initial Assessment, Intervention 56241 018 LYNNETTE ARCHIBALD [facility] Injection, methylprednisolone sodium succinate, up to 125 mg 018 SMITH MALCOLM One dose, IM, given by CHEVY Cortez [facility] Disease management program, follow-up/deb e ment 017 ERICA BUTLER [facility] Non-Physician Phone Call To Patient/Provider Brief (5-10min) Non-Physician Phone Call To Patient/Provider Brief (5-10min) 06909 016 DWAYNE CORTEZ [facility] Telephone calls by a registered nurse to a disease management program member for monitoring purposes; per month 016 KAUSHAL GARCÍA [facility] Non-Physician Phone Call To Patient/Provider Brief (5-10min) Non-Physician Phone Call To Patient/Provider Brief (5-10min) 58281 016 KAUSHAL GARCÍA [facility] Internet Med Svc Qual Nonphys Healthcare Prof Estab Patient Internet Med Svc Qual Nonphys Healthcare Prof Estab Patient [phone] NAUN TEJEDA [facility] Colorectal cancer screening; colonoscopy on individual not meeting criteria for high risk 015 JOSE MCMILLAN [facility] Complete Colonoscopy Complete Colonoscopy 23829 015 JOSE MCMILLAN [facility] Non-Physician Phone Call To Patient/Provider Brief (5-10min) Non-Physician Phone Call To Patient/Provider Brief (5-10min) 56062 015 VEENA RICHEY [facility] Non-Physician Phone Call To Patient/Provider Brief (5-10min) Non-Physician Phone Call To Patient/Provider Brief (5-10min) 12592 015 DWAYNE CORTEZ [facility] Non-Physician Phone Call To Patient/Provider Brief (5-10min) Non-Physician Phone Call To Patient/Provider Brief (5-10min) 21503 015 RENÉE TEJADA [facility] Non-Physician Phone Call To Patient/Provider Brief (5-10min) Non-Physician Phone Call To Patient/Provider Brief (5-10min) 83870 015 DWAYNE CORTEZ Fundus Photography Fundus Photography 04335 25/08 015 MAKENNA MCMILLAN [facility] Scanning Computerized Ophthalmic Diagnostic Imaging Retina Scanning Computerized Ophthalmic Diagnostic Imaging Retina 37259 MAKENNA MCMILLAN Ophthalmological Prior Patient Start Intermediate Level Care Ophthalmological Prior Patient Start Intermediate Level Care [phone] MAKENNA MCMILLAN [employer] Fitting Monofocals (Not For Aphakia) [employer] Fitting Monofocals (Not For Aphakia) 78370 014 MAKENNA MCMILLAN Determination Of Refractive State Determination Of Refractive State [phone] MAKENNA MCMILLAN Ophthalmological Prior Patient Start Comprehensive Care Ophthalmological Prior Patient Start Comprehensive Care 02816 014 MAKENNA MCMILLAN Non-Physician Phone Call To Patient/Provider Brief (5-10min) Non-Physician Phone Call To Patient/Provider Brief (5-10min) [phone] ELIZABETH BIRD Non-Physician Phone Call To Patient/Provider Brief (5-10min) Non-Physician Phone Call To Patient/Provider Brief (5-10min) 92459 012 WENDY GRAY [employer] Fitting Bifocals (Not For Aphakia) [employer] Fitting Bifocals (Not For Aphakia) 84198 012 EMELY GONZALEZ Determination Of Refractive State Determination Of Refractive State [phone] EMELY GONZALEZ Ophthalmological Prior Patient Start Comprehensive Care Ophthalmological Prior Patient Start Comprehensive Care [phone] EMELY GONZALEZ Non-Physician Phone Call To Patient/Provider Brief (5-10min) Non-Physician Phone Call To Patient/Provider Brief (5-10min) 17597 012 MATTHEW OZUNA Non-Physician Phone Call To Pt/Provider Intermed (11-20 min) Non-Physician Phone Call To Pt/Provider Intermed (11-20 min) [phone] RENÉE TEJADA Non-Physician Phone Call To Patient/Provider Brief (5-10min) Non-Physician Phone Call To Patient/Provider Brief (5-10min) 88590 011 MATTHEW OZUNA Non-Physician Phone Call To Patient/Provider Brief (5-10min) Non-Physician Phone Call To Patient/Provider Brief (5-10min) 24389 010 ALESHIA VILLARREAL Chiropractic Manip Treatmt (CMT) Spinal Three To Four Region Chiropractic Manip Treatmt (CMT) Spinal Three To Four Region 74540 008 KITTY MIRANDA Modalities Electrical Stimulation Unattended Modalities Electrical Stimulation Unattended 54427 008 KITTY MIRANDA Modalities Heat Hot Packs Modalities Heat Hot Packs 85445 008 KITTY MIRANDA Chiropractic Manip Treatmt (CMT) Spinal Three To Four Region Chiropractic Manip Treatmt (CMT) Spinal Three To Four Region 22634 008 KITTY MIRANDA Modalities Electrical Stimulation Unattended Modalities Electrical Stimulation Unattended 04553 008 KITTY MIRANDA Modalities Heat Hot Packs Modalities Heat Hot Packs 57276 008 KITTY MIRANDA Chiropractic Manip Treatmt (CMT) Spinal One To Two Regions Chiropractic Manip Treatmt (CMT) Spinal One To Two Regions 05584 008 KITTY MIRANDA Modalities Electrical Stimulation Unattended Modalities Electrical Stimulation Unattended 18053 008 KITTY MIRANDA Modalities Heat Hot Packs Modalities Heat Hot Packs 66053 008 KITTY MIRANDA Modalities Electrical Stimulation Unattended Modalities Electrical Stimulation Unattended 73540 008 KITTY MIRANDA Modalities Heat Hot Packs Modalities Heat Hot Packs 11939 008 KITTY MIRANDA Chiropractic Manip Treatmt (CMT) Spinal Three To Four Region Chiropractic Manip Treatmt (CMT) Spinal Three To Four Region 76269 008 KITTY MIRANDA Modalities Electrical Stimulation Unattended Modalities Electrical Stimulation Unattended 61577 008 KITTY MIRANDA Modalities Heat Hot Packs Modalities Heat Hot Packs 74177 008 KITTY MIRANDA Modalities Electrical Stimulation Unattended Modalities Electrical Stimulation Unattended 89680 008 KITTY MIRANDA Modalities Heat Hot Packs Modalities Heat Hot Packs 70251 008 KITTY MIRANDA Chiropractic Manip Treatmt (CMT) Spinal Three To Four Region Chiropractic Manip Treatmt (CMT) Spinal Three To Four Region 54808 008 KITTY MIRANDA Serum Enzyme Immunoa ay Streptococcal Antigen Serum Enzyme Immunoassay Streptococcal Antigen 49848 008 SARAH RIBERA Chiropractic Manip Treatmt (CMT) Spinal One To Two Regions Chiropractic Manip Treatmt (CMT) Spinal One To Two Regions 80363 007 KITTY MIRANDA Chiropractic Manip Treatmt (CMT) Spinal One To Two Regions Chiropractic Manip Treatmt (CMT) Spinal One To Two Regions 16022 007 KITTY MIRANDA Modalities Electrical Stimulation Unattended Modalities Electrical Stimulation Unattended 41557 007 KITTY MIRANDA Modalities Heat Hot Packs Modalities Heat Hot Packs 19633 007 IKTTY MIRANDA Chiropractic Manip Treatmt (CMT) Spinal One To Two Regions Chiropractic Manip Treatmt (CMT) Spinal One To Two Regions 69157 007 KITTY MIRANDA Modalities Electrical Stimulation Unattended Modalities Electrical Stimulation Unattended 86959 007 KITTY MIRANDA Modalities Heat Hot Packs Modalities Heat Hot Packs 58792 007 KITTY MIRANDA Chiropractic Manip Treatmt (CMT) Spinal Three To Four Region Chiropractic Manip Treatmt (CMT) Spinal Three To Four Region 71010 007 KITTY MIRANDA Modalities Electrical Stimulation Unattended Modalities Electrical Stimulation Unattended 65317 007 KITTY MIRANDA Modalities Heat Hot Packs Modalities Heat Hot Packs 13297 007 KITTY MIRANDA Modalities Electrical Stimulation Unattended Modalities Electrical Stimulation Unattended 27036 007 KITTY MIRANDA Modalities Heat Hot Packs Modalities Heat Hot Packs 22126 007 KITTY MIRANDA Medical Nutrition Therapy Group (2 or More Individual(s)) Medical Nutrition Therapy Group (2 or More Individual(s)) 47643 007 MARKY SHERIDAN Chiropractic Manip Treatmt (CMT) Spinal One To Two Regions Chiropractic Manip Treatmt (CMT) Spinal One To Two Regions 93408 007 KITTY MIRANDA Modalities Electrical Stimulation Unattended Modalities Electrical Stimulation Unattended 42561 007 KITTY MIRANDA Modalities Heat Hot Packs Modalities Heat Hot Packs 37397 007 KITTY MIRANDA Visual [place]acheco Test Intermediate Examination Visual [place]acheco Test Intermediate Examination 89912 007 MICHAEL TROY Ophthalmological Prior Patient Start Comprehensive Care Ophthalmological Prior Patient Start Comprehensive Care 31828 007 MICHAEL TROY [employer] Fitting Monofocals (Not For Aphakia) [employer] Fitting Monofocals (Not For Aphakia) 13873 007 MICHAEL TROY Determination Of Refractive State Determination Of Refractive State 70417 007 MICHAEL TROY Modalities Electrical Stimulation Unattended Modalities Electrical Stimulation Unattended 53263 007 KITTY MIRANDA Modalities Heat Hot Packs Modalities Heat Hot Packs 15981 007 KITTY MIRANDA Ophthalmological New Patient Start Comprehensive Care Ophthalmological New Patient Start Comprehensive Care 48478 007 MICHAEL TROY Visual [place]ache[place] Test Intermediate Examination Visual [place] Test Intermediate Examination 29514 007 MICHAEL TROY Modalities Electrical Stimulation Unattended Modalities Electrical Stimulation Unattended 70940 007 KITTY MIRANDA Modalities Heat Hot Packs Modalities Heat Hot Packs 35857 007 KITTY MIRANDA Chiropractic Manip Treatmt (CMT) Spinal One To Two Regions Chiropractic Manip Treatmt (CMT) Spinal One To Two Regions 17156 007 KITTY MIRANDA Modalities Electrical Stimulation Unattended Modalities Electrical Stimulation Unattended 39807 007 KITTY MIRANDA Modalities Heat Hot Packs Modalities Heat Hot Packs 93001 007 KITTY MIRANDA Modalities Electrical Stimulation Unattended Modalities Electrical Stimulation Unattended 65765 007 KITTY MIRANDA Modalities Heat Hot Packs Modalities Heat Hot Packs 62442 007 KITTY MIRANDA Modalities Electrical Stimulation Unattended Modalities Electrical Stimulation Unattended 93645 007 KITTY MIRANDA Modalities Heat Hot Packs Modalities Heat Hot Packs 95225 007 KITTY MIRANDA Chiropractic Manip Treatmt (CMT) Spinal One To Two Regions Chiropractic Manip Treatmt (CMT) Spinal One To Two Regions 37050 007 KITTY MIRANDA Modalities Electrical Stimulation Unattended Modalities Electrical Stimulation Unattended 17493 007 KITTY MIRANDA Modalities Heat Hot Packs Modalities Heat Hot Packs 86215 007 KITTY MIRANDA Modalities Electrical Stimulation Unattended Modalities Electrical Stimulation Unattended 92079 007 KITTY MIRANDA Modalities Heat Hot Packs Modalities Heat Hot Packs 97356 007 KITTY MIRANDA Modalities Electrical Stimulation Unattended Modalities Electrical Stimulation Unattended 14627 007 KITTY MIRANDA Modalities Heat Hot Packs Modalities Heat Hot Packs 05449 007 KITTY MIRANDA Modalities Electrical Stimulation Unattended Modalities Electrical Stimulation Unattended 99223 007 KITTY MIRANDA Medical Nutrition Therapy Group (2 or More Individual(s)) Medical Nutrition Therapy Group (2 or More Individual(s)) 40520 LYNNETTE ARCHIBALD S [facility] Waiver services; not otherwise specified (NOS) CRISTELALYNNETTE MATTHEWS S [facility] Disease management program, follow-up/debSUSI Okeefe [facility] Non-Physician Phone Call To Patient/Provider Brief (5-10min) Non-Physician Phone Call To Patient/Provider Brief (5-10min) 78413 WILLIAM BOYD [facility] Disease management program; initial a e ment and initiation of the program SUSI HOLLAND 180 min spent face to faced on education [facility] Preventive Medicine Physical Foot Examination Performed Preventive Medicine Physical Foot Examination Performed CALIXTO FRANKLIN [facility] Social History Combined list of available smoking, tobacco, and other social history from Department of Defense and Veterans Affairs facilities. Social History Type Response Date Comment [facility] e Tobacco smoking status NHIS VA-TOBACCO NEVER USED 02/01/2024 [facility] History of tobacco use SC-TOBACCO NEVER USED [facility]20[facility] History of tobacco use LIFETIME NON-SMOKER 10/01/2022 [facility] Sex Representation Male (finding) 08/28/2022 Un known Organization Tobacco Never-cigarette user Cigarette use:. Never-other tobacco user (not cigarettes) Other Tobacco use:. Ambulatory Pharmacy Sexual Orientation Ambula tory Pharmacy Gender identity Ambulator y Pharmacy This section is an empty social history section. [facility] Assessment and Plan Combined list of future care activities from Department of Defense and Veterans Affairs facilities (e.g., assessment and plan notes, appointments, orders, and referrals). Additional future care activities may be listed in the Plan of Care section. Result Assessment and Plan Date Source Assessment and Plan Extracted from:Title : [facility]- well adult Author: WILLIAM CARTY MD Date: [...] 60 tab(s), 0 total refill(s), Maintenance, Pharmacy: [facility] [Not filled] Capt Raj (), [facility] Animal Hospital Clerk PGY-[address] [place] [address] Operations [facility] [place] Addendum by JOANNA ELLIS MD on August 05, 2024 16:44:50 LOOM CHANGER I certify that I was present for case discussion in the Family Medicine preceptor room at the time of this encounter. I have reviewed the note and agree with the findings, assessment, and plan except as I have documented below. Follow up as listed. All labs/imaging/consults to be followed by the ordering provider. Maj Cole Rowe) Family Medicine Physician [facility] [place] Extracted from:Title: [facility]- Gout/Nexus Author: WILLIAM CARTY MD Date: 11/05/23 1. G out Chronic. Improved. Plan: - continue allopurinol 300mg Daily and indomethacin 50mg as needed - provided patient with NExus letter and uploaded to chart William Carty DO PGY-1 Animal Hospital Clerk [facility] [address] [place] Addendum by LEONA ARECHIGA MD on November [...] refill(s), Maintenance, 1 tab(s) Oral Daily, Pharmacy: [id number] [External Rx] Uric Acid Level William Carty DO PGY-1 Animal Hospital Clerk [facility] [address]/BR[place], [place] Addendum by ALLEN MOLINA MD on September 12, 2023 16:01:52 LOOM CHANGER I was present and available in the [...] Maintenance, 1 tab(s) Oral Daily,Instr:for diabetes, Pharmacy: [facility] [Not filled] 2. D epression Controlled. Pt follows with [facility]. Denies SI/HI Plan: - refill amitriptyline 3months - continue f/u with [facility] - f/u in 3 months Ordered: amitriptyline(amitriptyline 50 mg oral tablet), 1 tab(s), Oral, every day at bedtime, take one full pill night, # 90 tab(s), 0 total refill(s), Maintenance, 1 tab(s) Oral every day at bedtime,Instr:take one full pill night, Pharmacy: [facility] [Not filled] 3. E levated blood [...] Gout 4. G out Chronic. Pt saw psychologist [facility] with Uric acid level ~6.7 in 04/27. [...] LDL but stopped due to rec from [facility]. Did not find studies that suggest atorvastatin [...] for patient Capt William GardnerDO valeria PGY-1 Animal Hospital Clerk [facility] [place] Addendum by LEONA ARECHIGA MD on August 04, 2023 09:11:01 LOOM CHANGER I certify that I was present for case discussion in the Family Medicine preceptor room at the time of this encounter. I have reviewed the note and agree with the findings, assessment, and plan except as I have documented below. Follow up as listed. All labs/imaging/consults to be followed by the ordering provider. Leona Arechiga MD, [facility] [place], [facility], Staff Physician - Discussed with resident proper [...] Follow these instructions at home: Medicines Take ewop-uml-pbzyxku and prescription medicines only as told by your health care provider. Ask your health care provider if the medicine prescribed to you: Requires you to avoid driving or using machinery. Can cause constipation. You may need to take these actions to prevent or treat constipation: Drink enough fluid to keep your urine pale yellow. Take zmqp-uyz-xvvrygo or prescription medicines. Eat foods that are [...] department or: Call your local emergency services (538 in the [place] Call a suicide crisis helpline, such as the National Suicide Prevention Lifeline at or 039 in the [place] This is open 24 hours a day in the [place] Text the Crisis Text Line at 981965 (in the [place] Summary Chronic pain is [...] provider. Document Revised: 01/15/2022 Document Reviewed: 03/08/2020 [employer] Patient Education 2021 [employer] Extracted from:Title: FMR-Back/Depression Author: WILLIAM CARTY [...] 2. D epression Recent dx, has seen [facility] and started on 30 day trial of amitriptyline a t last visit. No SE with med. Overall mood improved since last visit. Denies SI/SA/HI. PHQ9- 17, GAD7- 14 Plan: - pt has f/u with [facility] - will continue to implement strategies and [...] at bedtime,Instr:take one full pill night, Pharmacy: [facility] [Not filled] 3. D yslipidemia [...] current medications Capt William Carty, DO PGY-1 Animal Hospital Clerk [facility] [address] [place], [place] Addendum by FROILAN FRANK DO on April 20, 2023 09:26:36 CDT I certify that I was physically present with the resident and patient. I have discussed the diagnosis and treatment plan with the resident [id number]. I have reviewed the note and concur with the findings, assessment, and plan. Follow up as listed. All labs/imaging/consults to be followed by the ordering provider. Capt Izaiah, [facility], Staff Physician Extracted from:Title: Ambulatory Patient Education [...] daily schedule. Exercise is a good stress stamp clerk. Include time in your day for an [...] about the same time every day. Take oqwj-noz-tdhnvdk and prescription medicines only as told by [...] provider. Document Revised: 08/30/2021 Document Reviewed: 01/18/2020 [employer] Patient Education 2021 [employer] Extracted from:Title: FMR- Piriformis/Depression Author: WILLIAM [...] every 4 hr,x30 days,PRN:pain or fever, Pharmacy: [facility] [Not filled] XR Spine Lumbosacral 2 [...] every 4 hr,x30 days,PRN:pain or fever, Pharmacy: [facility] [Not filled] XR Spine Lumbosacral 2 [...] Specific Antigen Capt William Carty DO PGY-1 Animal Hospital Clerk [facility] [address] [place], [place] Addendum by CHUY HANSON DO on April 06, 2023 10:51:45 CDT I certify that I was physically present with the resident and patient. I have discussed the diagnosis and treatment plan with the resident [id number]. I have reviewed the note and concur with the findings, assessment, and plan. Follow up as listed. All labs/imaging/consults to be followed by the ordering provider. Chuy Hanson DO, , [facility], Staff Physician 12/13/2024 [id number] [facility] Assessment and Plan Extracted from:Title : [facility]- well adult Author: WILLIAM CARTY MD Date: [...] 90 tab(s), 0 total refill(s), Maintenance, Pharmacy: [facility] [Not filled] losartan(losartan 25 mg oral tablet), 1 tab(s), Oral, Daily, for blood pressure, # 60 tab(s), 0 total refill(s), Maintenance, Pharmacy: [facility] [Not filled] Capt Cole Anthony), [facility] Animal Hospital Clerk PGY-[address] [place] [address] [facility] Medicine Residency [place], [place] Addendum by JOANNA ELLIS MD on August 05, 2024 16:44:50 LOOM CHANGER I certify that I was present for case discussion in the Family Medicine preceptor room at the time of this encounter. I have reviewed the note and agree with the findings, assessment, and plan except as I have documented below. Follow up as listed. All labs/imaging/consults to be followed by the ordering provider. Maj Cole Rowe) Family Medicine Physician [facility] [place] Extracted from:Title: FMR- Gout/Nexus Author: WILLIAM CARTY MD Date: 11/05/23 1. G out Chronic. Improved. Plan: - continue allopurinol 300mg Daily and indomethacin 50mg as needed - provided patient with NExus letter and uploaded to chart Capt William Carty DO PGY-1 Animal Hospital Clerk [facility] [address] [place] Addendum by LEONA ARECHIGA MD on November [...] will follow up Leona Arechiga MD, , [facility], Staff Physician Extracted from:Title: FMR- Gout Author: [...] refill(s), Maintenance, 1 tab(s) Oral Daily, Pharmacy: [id number] [External Rx] Uric Acid Level Capt William Carty, DO PGY-1 Animal Hospital Clerk [facility] [address] [facility], [place] Addendum by ALLEN MOLINA MD on September 12, 2023 16:01:52 LOOM CHANGER I was present and available in the family medicine clinic to discuss the patient's care during the time of the appointment. I agree with the resident's assessment and plan as documented. Allen Molina MD, Faculty, [facility], [facility], Attending Physician Extracted from:Title: FMR- DM, Piriformis, [...] 2. D epression Controlled. Pt follows with [facility]. Denies SI/HI Plan: - refill amitriptyline 3months - continue f/u with [facility] - f/u in 3 months Ordered: amitriptyline(amitriptyline 50 mg oral tablet), 1 tab(s), Oral, every day at bedtime, take one full pill night, # 90 tab(s), 0 total refill(s), Maintenance, 1 tab(s) Oral every day at bedtime,Instr:take one full pill night, Pharmacy: [facility] [Not filled] 3. E [...] Gout 4. G out Chronic. Pt saw [facility] with Uric acid level ~6.7 in 04/27. [...] After one week take 2tabs daily., Pharmacy: [facility] [N Uric Acid Level 5. H yperlipidemia Chronic. Labs show worsening LDL but stopped due to rec from [facility]. Did not find studies that suggest atorvastatin [...] for patient Capt William Carty DO PGY-1 Animal Hospital Clerk [facility] [address] [place], [place] Addendum by LEONA ARECHIGA MD on August 04, 2023 09:11:01 LOOM CHANGER I certify that I was present for case discussion in the Family Medicine preceptor room at the time of this encounter. I have reviewed the note and agree with the findings, assessment, and plan except as I have documented below. Follow up as listed. All labs/imaging/consults to be followed by the ordering provider. Leona Arechiga MD, [facility], Staff Physician - Discussed with resident [...] Follow these instructions at home: Medicines Take njae-jrf-uqaknkp and prescription medicines only as told by your health care provider. Ask your health care provider if the medicine prescribed to you: Requires you to avoid driving or using machinery. Can cause constipation. You may need to take these actions to prevent or treat constipation: Drink enough fluid to keep your urine pale yellow. Take vjwh-jbv-ajyylkc or prescription medicines. Eat foods that are [...] department or: Call your local emergency services (032 in the [place] Call a suicide crisis helpline, such as the National Suicide Prevention Lifeline at or 017 in the [place] This is open 24 hours a day in the [place] Text the Crisis Text Line at 141912 (in the [place] Summary Chronic pain is [...] provider. Document Revised: 01/15/2022 Document Reviewed: 03/08/2020 [employer] Patient Education 2021 [employer]. Extracted from:Title: FMR-Back/Depression Author: WILLIAM CARTY MD [...] 2. D epression Recent dx, has seen [facility] and started on 30 day trial of amitriptyline a t last visit. No SE with med. Overall mood improved since last visit. Denies SI/SA/HI. PHQ9- 17, GAD7- 14 Plan: - pt has f/u with [facility] - will continue to implement strategies and [...] current medications Capt William Carty DO PGY-1 Animal Hospital Clerk [facility] [address] [facility], [place] Addendum by FROILAN FRANK DO on April 20, 2023 09:26:36 CDT I certify that I was physically present with the resident and patient. I have discussed the diagnosis and treatment plan with the resident [id number]. I have reviewed the note and concur with the findings, assessment, and plan. Follow up as listed. All labs/imaging/consults to be followed by the ordering provider. Capt Izaiah, [facility], Staff Physician Extracted from:Title: Ambulatory Patient Education [...] daily schedule. Exercise is a good stress stamp clerk. Include time in your day for an [...] about the same time every day. Take xvxz-dbe-bbmtfcs and prescription medicines only as told by [...] provider. Document Revised: 08/30/2021 Document Reviewed: 01/18/2020 [employer] Patient Education 2021 [employer]. Extracted from:Title: FMR- Piriformis/Depression Author: WILLIAM CARTY [...] every 4 hr,x30 days,PRN:pain or fever, Pharmacy: [facility] [Not filled] XR Spine [...] will continue on with 50mg daily - [facility] recommended for pt, pt agreeable and will [...] refill(s), Maintenance, 50 mcg Nostril-Both BID, Pharmacy: [facility] [Not filled] cetirizine(ZyrTEC 10 mg oral tablet), 1 tab(s), Oral, Daily, PRN allergy symptoms, # 90 tab(s), 3 total refill(s), Maintenance, 1 tab(s) Oral Daily,PRN:allergy symptoms, Pharmacy: [facility] [Not filled] Orders: indomethacin(indomethacin 50 mg oral capsule), 1 cap(s), Oral, TID, PRN pain (moderate), with food or milk, # 270 cap(s), 0 total refill(s), Maintenance, 1 cap(s) Oral TID,PRN:pain (moderate),Instr:with food or milk, Pharmacy: [facility] [Not filled] Comprehensive Metabolic Panel Hemoglobin A1c Lipid Panel Prostate Specific Antigen Capt William Carty DO PGY-1 Animal Hospital Clerk [facility] [address] Addendum by CHUY HANSON DO on April 06, 2023 10:51:45 CDT I certify that I was physically present with the resident and patient. I have discussed the diagnosis and treatment plan with the resident [id number]. I have reviewed the note and concur with the findings, assessment, and plan. Follow up as listed. All labs/imaging/consults to be followed by the ordering provider. Capt Azar DO, [facility], Staff Physician 12/13/2024 [id number] [facility] Plan of Care List of future care activities from Department of [facility] Affairs facilities. Additional future care activities may be listed in the Assessment and Plan section. Date/Time Care Activity Care Activity Detail Facili ty 01/26/2025 AMBULATORY - MEDICINE AMBULATORY - MEDICI [facility] Functional Status Combined list of recent functional and cognitive assessments recorded at [facility] of [facility] (VA).[facility] Functional [place] Measurement (FIM) Scale: 1 = Total Assistance (Subject = 0% +), 2 = Maximal Assistance (Subject = 25% +), 3 = Moderate Assistance (Subject = 50% +), 4 = Minimal Assistance (Subject = 75% +), 5 = Supervision, 6 = Modified Finlayson (Device), 7 = Complete [place] (Timely, Safely). Assessment Date/Time Source Assessment Type Assessment Skill Assessment Score Assessment Details No data available for this section
== END 2024-12-13 16:47 | disposition home or self-care (01) ==
PROVIDERS: Emergency Provider Emergency Medicine
DX: S20.219A Contusion of unspecified front wall of thorax, initial encounter (principal); E78.5 Hyperlipidemia, unspecified; E11.9 Type 2 diabetes mellitus without complications; I10 Essential (primary) hypertension; W20.8XXA Other cause of strike by thrown, projected or falling object, initial encounter
CPT/HCPCS: 36415; 71046; 80053; 85025; 93005; 96374; 96375; 99284; J2270; J2405